=== PATIENT | female | born 1935 | race Caucasian/White ===

== ENCOUNTER 2016-08-02 19:46 | Emergency (ER) | payer OTHER ==
[~2016-08-02] VITALS: Ht 162.6 cm; Wt 77.8 kg
[~2016-08-02 19:46] MED LIST: ALBUAER2 INH; GLCSR/500 PO; LCHC12280 TOP; METO50TA16 PO; MOME1AER4 INH; PRVC/20 PO; RIVA1TAB4 PO; TRAM-10 PO
[2016-08-02 19:49] VITALS: Ht 162.6 cm; Wt 77.8 kg
[2016-08-02] MEDS ORDERED: VNTHFA/IN INH (20:55)
[2016-08-02] MEDS ORDERED: ASMIN/30 INH (20:55)
--- NOTE | 2016-08-02 21:20 | EMERGENCY ROOM VISIT NOTE ---
ED Visit Note First contact with patient: 21:20 I have personally seen and evaluated the patient with the physician assistant attorney general. I agree with the diagnostic/management decisions and have personally been involved in these decisions and agree with the diagnosis.
--- NOTE | 2016-08-02 21:22 | EMERGENCY ROOM VISIT NOTE ---
ED Visit Note First contact with patient: 20:10 CHIEF COMPLAINT: Itchy scalp rash 3 weeks HISTORY OF PRESENT ILLNESS: Patient is an 81-year-old white female who presents to the emergency department A by her son for evaluation of a scalp rash. She reports a red, itchy rash that has been present for about 3 weeks. It is progressively getting worse. She initially tried using a Head and Shoulders antidandruff shampoo which made it worse, she switched to Selsun Blue, which she seems to think helped. She is also tried applying Vaseline to the area. She states that it is very itchy but she is trying not to scratch it. She has never had symptoms similar to this previously. Denies new exposure to any potential allergens such as new medications, clothes, detergents, cosmetic products, or foods. She did not attempt to contact her PCP for evaluation for this despite the ongoing duration. REVIEW OF SYSTEMS: Review of systems as per HPI. All other systems reviewed were negative. At least 6 systems reviewed. PMH: Electronic medical records are reviewed and summarized as above/below. See Problem List. SOCIAL HISTORY: Patient lives at home by herself. She does not smoke.. PHYSICAL EXAM: Vital Signs: Reviewed Nurse's notes. CONSTITUTIONAL: Patient is a pleasant, well-appearing 81-year-old white female who is awake and alert and in no acute. HEENT: Normocephalic, atraumatic. Pupils equal, round, reactive to light and accommodation. EOMs intact without nystagmus. Sclera are anicteric. Tympanic membranes intact, with normal landmarks. External canals are clear. Oral and nasopharynx are clear. Mucous membranes are moist. LUNGS: Clear to auscultation HEART: Regular rate and rhythm. INTEGUMENTARY: Examination of the patient's scalp does not show any well demarcated rash or obvious lesions. She has a very faint slightly raised erythematous maculopapular region at the temples bilaterally, and a few other lesions noted in the occipital area. There is no crusting, flaking, drainage or discharge. No excoriations. No hair breakage. No evidence for head lice. EMERGENCY DEPARTMENT COURSE: The patient was seen and evaluated as above. She presents the emergency department for evaluation of a rash which fairly difficult to identify. She has a few, minimally raised and slightly erythematous areas, but they do not appear consistent with a tibial infection. Certainly no evidence for head lice, does not appear consistent with urticaria. It was not felt that any prednisone was warranted. For her itching she was encouraged to use Benadryl. She should not apply any other topical agents to the area, and was encouraged to follow-up with her doctor, or with dermatology. Problem List Medical Problems: (1) Asthma Status: Chronic (2) Asthma, Unspecified Status: Chronic (3) Atrial fibrillation Status: Chronic (4) Contusion of left upper extremity Status: Resolved (5) Contusion of rib on right side Status: Resolved (6) Diabetes mellitus Status: Chronic (7) Fall from slip, trip, or stumble Status: Resolved (8) HTN (hypertension) Status: Chronic (9) Hyperlipidemia Nec/Nos Status: Chronic (10) Left shoulder strain Status: Resolved (11) Lumbar back pain Status: Resolved (12) New onset atrial flutter Status: Resolved (13) New onset atrial flutter Status: Resolved (14) Skin tear of left hand without complication Status: Resolved (15) Vaginal bleeding Status: Resolved Current/Historical Medications Scheduled Lactic Acid (Ammonium Lactate Cream 12%), 1 APPLN TOP BID Metformin HCl (Metformin HCl ER), 500 MG PO DAILY Metoprolol Tartrate (Lopressor) (Lopressor), 50 MG PO BID Mometasone Furoate (Asmanex Twisthaler 30 Me), 1 PUFF INH QPM Pravastatin Sod (Pravastatin Sodium), 20 MG PO HS Rivaroxaban (Xarelto), 20 MG PO DAILY Scheduled PRN Albuterol Hfa (Ventolin Hfa), 2 PUFF INH QID PRN for SOB/Wheezing Tramadol (Ultram), 50-100 MG PO Q4H PRN for Pain Allergies Coded Allergies: Simvastatin (Verified Adverse Reaction, Intermediate, DIZZINESS, 03/14/15) Vital Signs Date Time Temp Pulse Resp B/P Pulse Ox O2 Delivery O2 Flow Rate FiO2 08/02/16 21:35 36.5 67 20 174/104 97 08/02/16 19:49 36.5 90 20 204/91 95 Room Air Departure Information Impression Primary Impression: Pruritic dermatitis Referrals Ariadna Garcia, C.R.N.P. (PCP) Song Quintero MD [facility] Patient Instructions [facility] Additional Instructions Diphenhydramine(Benadryl) 25mg: use 25 to 50 mg as needed every six hours for swelling, itching, or hives. This medication is sedating and will cause drowsiness. Avoid alcohol, operating machinery or dangerous equipment, working on ladders or roofs, DRIVING, or situations where being under the influence may be dangerous. Read all the package inserts or medication information paperwork provided. If you have any questions or concerns call your primary provider, pharmacist or the ER for assistance. Continue current medications. Continue your anti-dandruff shampoo. Follow-up with your primary care physician in 2-3 days for a recheck of your current condition. Follow-up with dermatology as instructed this week to schedule a visit and further investigation.
[2016-08-02 21:35] VITALS: BP 174/104; PULSE 67; TEMP 36.5; O2SAT 97
[2016-09-22] MEDS ORDERED: CLC100 PO (09:17)
[2016-09-22] MEDS ORDERED: FRRS300 PO (09:17)
[2016-09-22] MEDS ORDERED: MRLP17 PO (09:17)
== END 2016-08-02 21:36 | disposition home or self-care (01) ==
LOC: C.EDB 19:47 → C.EDD 21:36
DX: L30.8 Other specified dermatitis (principal); J45.909 Unspecified asthma, uncomplicated; E78.5 Hyperlipidemia, unspecified; I48.2 Chronic atrial fibrillation; I10 Essential (primary) hypertension; E11.9 Type 2 diabetes mellitus without complications; Z79.84 Long term (current) use of oral hypoglycemic drugs

== ENCOUNTER 2016-09-13 07:49 | Emergency (ER) | payer OTHER ==
[~2016-09-13 07:49] MED LIST changes: -ALBUAER2 INH; +ASMIN/30 INH; -MOME1AER4 INH; +VNTHFA/IN INH
[2016-09-13 07:58] VITALS: TEMP 36.5
[2016-09-13] MEDS ORDERED: LISI-729 PO (08:07)
[2016-09-13] MEDS ORDERED: SODIUM CHLORIDE 0.9% 1000ML 1,000 ML IV STA (08:10)
[2016-09-13 08:24] LABS: BASO % 0.5 %; BASO ABS # 0.02 K/uL (0-0.2); COMPLETE YES; EOS % 5.5 %; HEMATOCRIT 44.8 % (37-47); IG% 0.2 %; LYMPH % 29.6 %; LYMPH ABS # 1.23 K/uL (1.2-3.4); MEAN CELL VOLUME 89.6 fL (80-100); MEAN CORPUSCULAR HEMOGLOBIN 29.8 pg (25-34); MEAN CORPUSCULAR HGB CONC 33.3 g/dl (32-36); MEAN PLATELET VOLUME 9.5 fL (7.4-10.4); MONO % 11.3 %; NEUT % 52.9 %; PLATELET COUNT 170 K/uL (130-400); WHITE BLOOD COUNT 4.15 K/uL (4.8-10.8)
[2016-09-13 08:34] LABS: INR 1.5 (0.9-1.1); PARTIAL THROMBOPLASTIN RATIO 1.4; PROTHROMBIN TIME (PATIENT) 16.1 SECONDS (9.0-12.0)
[2016-09-13 08:38] LABS: BLOOD UREA NITROGEN 13 mg/dl (7-18); GLUCOSE 192 mg/dl (70-99)
[2016-09-13 08:39] LABS: ALT/SGPT 42 U/L (12-78); CALCIUM 9.1 mg/dl (8.5-10.1); CARBON DIOXIDE 27 mmol/L (21-32); CHLORIDE 106 mmol/L (98-107); POTASSIUM 3.8 mmol/L (3.5-5.1); SODIUM 142 mmol/L (136-145)
--- NOTE | 2016-09-13 08:40 | DIAGNOSTIC IMAGING REPORT ---
SINGLE VIEW CHEST CLINICAL HISTORY: Atypical chest pain. FINDINGS: An AP, portable, upright chest radiograph is compared to study dated 03/14/2015. The examination is degraded by portable technique and patient rotation. The heart is enlarged and there is atherosclerotic calcification of the thoracic aorta. The pulmonary vasculature is noncongested. The lungs and pleural spaces are clear. No pneumothorax is seen. The skeletal structures are osteopenic. The bony thorax is grossly intact. Degenerative change is noted in the thoracic spine. IMPRESSION: Cardiomegaly with no acute cardiopulmonary abnormality. Electronically signed by: Cheng Sheridan M.D. 09/13/2016 8:39 AM Dictated Date/Time: 09/13/2016 8:38 AM
[2016-09-13 08:42] LABS: ALKALINE PHOSPHATASE 74 U/L (45-117); AST/SGOT 30 U/L (15-37); CKMB/CK RATIO 4.3 (0-3.0)
--- NOTE | 2016-09-13 08:59 | EMERGENCY ROOM VISIT NOTE ---
ED Visit Note First contact with patient: 07:53 Patient was seen by our PA/TALENT SCOUT. I was involved in the patient's care and did evaluate the patient myself. I was involved in the care throughout the ER stay. The patient presents with a higher blood pressure, she is really without other complaints. She has a nonfocal neurologic exam. Her blood pressure has started to come down on its own without any medication intervention. She has been having some adjustments made to her blood pressure medications recently. We are going to attempt to contact her doctor's office about how to move forward. We will not be making any changes unless approved by the family physician.
--- NOTE | 2016-09-13 11:07 | DIAGNOSTIC IMAGING REPORT ---
LEFT ELBOW MIN 3 VIEWS ROUTINE CLINICAL HISTORY: Left elbow pain status post trauma COMPARISON: None. DISCUSSION: The fat pads are not displaced. No acute fractures are visualized. There is triceps insertional calcification. IMPRESSION: 1. No acute fractures or dislocations 2. Triceps insertional olecranon calcification Electronically signed by: Matt Gonzalez M.D. 09/13/2016 11:06 AM Dictated Date/Time: 09/13/2016 11:05 AM
--- NOTE | 2016-09-13 11:08 | DIAGNOSTIC IMAGING REPORT ---
RIGHT FOOT MIN 3 VIEWS ROUTINE CLINICAL HISTORY: Right foot pain status post trauma COMPARISON: None. DISCUSSION: No acute fractures are visualized. There is prominent calcaneal spurring. There are osteoarthritic changes at the level the first metatarsal phalangeal joint. IMPRESSION: No acute fractures identified. Electronically signed by: Matt Gonzalez M.D. 09/13/2016 11:07 AM Dictated Date/Time: 09/13/2016 11:06 AM
--- NOTE | 2016-09-13 11:11 | DIAGNOSTIC IMAGING REPORT ---
SINGLE VIEW PELVIS CLINICAL HISTORY: Fall with right pelvic pain. FINDINGS: An AP pelvic radiograph is correlated with pelvic CT dated 01/17/2014. The skeletal structures are osteopenic. There is no radiographic evidence of acute fracture involving the hips or bony pelvis. Mild arthritic change is seen in the hips. Sclerotic change is noted in the sacroiliac joints and pubic symphysis. Lumbosacral spondylosis is partially imaged. The overlying soft tissues are within normal limits. There is a nonobstructed abdominal bowel gas pattern. IMPRESSION: Osteopenia and degenerative changes above. No fracture is seen in the hips or bony pelvis. Electronically signed by: Cheng Sheridan M.D. 09/13/2016 11:09 AM Dictated Date/Time: 09/13/2016 11:08 AM
--- NOTE | 2016-09-13 11:11 | DIAGNOSTIC IMAGING REPORT ---
RIGHT ELBOW MIN 3 VIEWS ROUTINE CLINICAL HISTORY: RT ELBOW PAIN Right trauma. Pain. COMPARISON: None. DISCUSSION: Soft tissue disruption medial and posterior to the elbow. Small ossific fragment adjacent to the proximal ulna possibly representing an old avulsion. It appears to be relatively well corticated. Components of mild lateral calcific epicondylitis. IMPRESSION: Considerable soft tissue disruption as described. Small ossific fragment immediately adjacent to the proximal ulna most likely old. Electronically signed by: Abdirizak Dixon M.D. 09/13/2016 11:10 AM Dictated Date/Time: 09/13/2016 11:07 AM
[2016-09-13 11:42] VITALS: BP 177/102; PULSE 71; O2SAT 98
--- NOTE | 2016-09-13 16:07 | EMERGENCY ROOM VISIT NOTE ---
ED Visit Note First contact with patient: 07:53 Chief Complaint: Lightheadedness and high blood pressure. History of Present Illness: Ms. Miller is an 81-year-old white female who is brought into the ED via ambulance with complaints of high blood pressure and lightheadedness. Patient reports on her last follow-up visit with her PCP her blood pressure medication which changed because she was having lightheadedness. I did review her medical records from this visit on September 06 and it showed that they decreased her lisinopril from 5 mg 2.5 mg. Patient reports the lightheadedness has been ongoing for months prior to this visit. Patient reports the lightheadedness has continued since this visit and she has noted at home that her blood pressure has been increasing over the last few days. This caused her concern so 911 was activated and she was brought into the ED. Currently she has no other complaints except those noted above. She denies any physical complaints including head trauma, headache, dizziness, visual changes, hearing changes, difficulty speaking, difficulty swallowing, difficulty ambulating/coordinating body movements, neck pain, chest pain, palpitations, shortness of breath, cough, upper respiratory tract symptoms, abdominal pain, nausea, vomiting, decreased appetite, weight loss, extremity weakness/numbness/ tingling. LATE NOTE: On discharge patient was walking into the waiting room of the hospital and did not have her shoes correctly placed, lost her balance and fell to the floor. She was brought back into the ED and reevaluated. On my evaluation patient was complaining of bilateral elbow pain, right hip and posterior pelvis pain and right foot pain. Rest patient described the pain in these areas she says it feels "bruised", but these areas do not hurt. Her discomfort worsens with palpation. She has not identified any alleviating factors related to the pain and she did not have any medication for pain prior to arrival back in the ED. She denies striking her head at the time of the fall or having a loss of consciousness, she was not having any dizziness or lightheadedness before the fall and she denies all abnormal neurological symptoms, cervical back pain, thoracic back pain, chest pain, shortness of breath, abdominal pain, nausea/vomiting. Review of Systems: As noted above in history of present illness. All body systems were reviewed and found to be negative as noted above. Past Medical History: (1) Asthma (2) Asthma, Unspecified (3) Atrial fibrillation (4) Contusion of left upper extremity (5) Contusion of rib on right side (6) Diabetes mellitus (7) Fall from slip, trip, or stumble (8) HTN (hypertension) (9) Hyperlipidemia Nec/Nos (10) Left shoulder strain (11) Lumbar back pain (12) New onset atrial flutter (13) New onset atrial flutter (14) Skin tear of left hand without complication (15) Vaginal bleeding Current Medications: Medications Dose Route/Sig Max Daily Dose Days Date Category Zestril (Lisinopril) 5 Mg Tab 2.5 Mg PO DAILY 09/13/16 Reported Asmanex Twisthaler 30 Me (Mometasone Furoate) 30 Puff/Inhaler Aerp 1 Puff INH QPM 08/02/16 Reported Ventolin Hfa (Albuterol) 200 Puffs/06842 Mcg Aers 2 Puff INH QID PRN 08/02/16 Reported Xarelto (Rivaroxaban) 20 Mg Tab 20 Mg PO DAILY 04/29/15 Reported Metformin HCl ER (Metformin HCl) 500 Mg Tabcr 500 Mg PO DAILY 04/29/15 Reported Lopressor (Metoprolol Tartrate) 50 Mg Tab 50 Mg PO BID 04/24/14 Reported Allergies to Medications: Simvastatin. Social History: Patient is not currently employed; she feels safe in her home environment; she denies tobacco and alcohol use. Physical Examination: Vital Signs: GENERAL: 81-year-old female in no acute distress, nontoxic-appearing, afebrile and hemodynamically stable. NEUROLOGICAL: Awake, alert and oriented to person, place and time. Answering questions appropriately and following commands. Good hand eye coordination. No focal motor or sensory deficits. Pronator drift test negative. Cranial nerves II through XII grossly intact. SKIN: Warm, dry and pink. No soft tissue eruptions or trauma noted. HEENT: Atraumatic and normocephalic. PERRLA. EOMI without nystagmus. Sclera white and conjunctiva pink. No drainage from naris. Oral cavity moist and pink. Pharynx is nonerythematous or edematous. No carotid bruits. Speech normal. No lymphadenopathy. Trachea midline. No jugular venous distention. BACK: No tenderness over the bony spine. No CVA tenderness. THORAX: Lungs sounds are clear to auscultation and equal bilaterally with symmetrical chest wall. No wheezing, rales or rhonchi. No crepitus, tenderness , subcutaneous air or deformities noted. HEART: Regular rate and rhythm. No gallops, rubs or murmurs are appreciated. PMI is not displaced. No lifts, heaves or thrills. ABDOMEN: Flat, soft and nontender. Positive bowel sounds in all quadrants. No guarding, rigidity or organomegaly. EXTREMITIES: Moves all extremities well on command and with purpose. All distal neurovascular statuses are intact and equal bilaterally. Mild dependent edema over the right lower extremity; medical records were reviewed and this has been noted before. No calf tenderness or cords. LATE: GENERAL: 81-year-old female in no acute distress. NEUROLOGICAL: Awake, alert and oriented to person, place and time. Answering questions appropriately and following commands. Good hand eye coordination. No focal motor sensory deficits. SKIN: Warm, dry and pink. Right Foot: Patient has a small superficial laceration to the third finger just lateral to the toenail. Minimal bleeding. HEENT: Atraumatic and normocephalic. Skull: No bony deformity/depressions, nontender. No raccoon's eyes or wong signs. No drainage in the ears or the nostril; no hemotympanum. Face: No bony tenderness, swelling or ecchymosis. PERRLA. EOMI without nystagmus. Sclera white and conjunctiva pink. No malocclusion. No actual trauma. Airway patent. Speech normal. Trachea midline. No jugular venous distention. BACK: No tenderness over the bony cervical, thoracic and lumbar spine. Full range of motion of the cervical spine. No CVA tenderness. THORAX: Lungs sounds are clear to auscultation and equal bilaterally with symmetrical chest wall. No crepitus, tenderness, subcutaneous air or deformities noted. HEART: Regular rate and rhythm. No gallops, rubs or murmurs are appreciated. ABDOMEN: Flat, soft and nontender. Positive bowel sounds in all quadrants. No guarding, rigidity or organomegaly. PELVIS: Stable and nontender to compression and rock. Mild tenderness over the posterior ilium area just superior and medial of the hip. No palpable bony deformity or crepitus. No swelling or ecchymosis. UPPER EXTREMITY: No tenderness over the shoulders, forearms, wrists or hands. Mild tenderness over the bilateral occipital area slightly more pronounced on the right than the left. There is some skin redness but no open wounds or skin tears. No tenderness over the distal humerus, olecranon process, epicondyles or proximal radius/forearm. She does have full range of motion in flexion and extension of the elbows and forearms bilaterally. Distal pulses are intact and equal bilaterally. LOWER EXTREMITIES: No shortening or malrotation. Mild tenderness over the right foot over the third metatarsal and third toe. Small laceration as noted above. No bruising or ecchymosis. Able to wiggle her toes without difficulty. Capillary refill is brisk. She was able to distinguish light sensations through all toes of the right foot. . ED Course: Patient is assessed as noted above. Test 09/13/16 07:57 09/13/16 07:58 09/13/16 08:16 Range/Units Bedside Glucose 166 70-90 mg/dl White Blood Count 4.15 4.8-10.8 K/uL Red Blood Count 5.00 4.2-5.4 M/uL Hemoglobin 14.9 12.0-16.0 g/dL Hematocrit 44.8 37-47 % Mean Corpuscular Volume 89.6 80-100 fL Mean Corpuscular Hemoglobin 29.8 25-34 pg Mean Corpuscular Hemoglobin Concent 33.3 32-36 g/dl Platelet Count 170 130-400 K/uL Mean Platelet Volume 9.5 7.4-10.4 fL Neutrophils (%) (Auto) 52.9 % Lymphocytes (%) (Auto) 29.6 % Monocytes (%) (Auto) 11.3 % Eosinophils (%) (Auto) 5.5 % Basophils (%) (Auto) 0.5 % Neutrophils # (Auto) 2.19 1.4-6.5 K/uL Lymphocytes # (Auto) 1.23 1.2-3.4 K/uL Monocytes # (Auto) 0.47 0.11-0.59 K/uL Eosinophils # (Auto) 0.23 0-0.5 K/uL Basophils # (Auto) 0.02 0-0.2 K/uL RDW Standard Deviation 46.0 36.4-46.3 fL RDW Coefficient of Variation 14.1 11.5-14.5 % Immature Granulocyte % (Auto) 0.2 % Immature Granulocyte # (Auto) 0.01 0.00-0.02 K/uL Prothrombin Time 16.1 9.0-12.0 SECONDS Prothromb Time International Ratio 1.5 0.9-1.1 Activated Partial Thromboplast Time 36.9 21.0-31.0 SECONDS Partial Thromboplastin Ratio 1.4 Sodium Level 142 136-145 mmol/L Potassium Level 3.8 3.5-5.1 mmol/L Chloride Level 106 98-107 mmol/L Carbon Dioxide Level 27 21-32 mmol/L Anion Gap 9.0 3-11 mmol/L Blood Urea Nitrogen 13 7-18 mg/dl Creatinine 0.60 0.60-1.20 mg/dl Estimated GFR () 99.1 Estimated GFR (Non- 85.5 BUN/Creatinine Ratio 22.0 10-20 Random Glucose 192 70-99 mg/dl Calcium Level 9.1 8.5-10.1 mg/dl Magnesium Level 2.0 1.8-2.4 mg/dl Total Bilirubin 0.5 0.2-1 mg/dl Direct Bilirubin 0.1 0-0.2 mg/dl Aspartate Amino Transf (AST/SGOT) 30 15-37 U/L Alanine Aminotransferase (ALT/SGPT) 42 12-78 U/L Alkaline Phosphatase 74 45-117 U/L Total Creatine Kinase 47 26-192 U/L Creatine Kinase MB 2.0 0.5-3.6 ng/ml Creatine Kinase MB Ratio 4.3 0-3.0 Total Protein 6.2 6.4-8.2 gm/dl Albumin 3.4 3.4-5.0 gm/dl Lipase 77 73-393 U/L Bedside Troponin I 0.000 0-0.045 ng/ml EKG: Was read by myself and reviewed with Dr. Almeida; shows atrophic flutter with varying AV block at a ventricular rate of [address] changes indicating ischemia, injury or infarction. I did review patient's medical records and seeing that she has been in atrial fibrillation in the past, atrial flutter in the past and her last EKG was sinus bradycardia with first-degree AV block. Chest X-Rays: Were read by myself and the radiologist and shows mild cardiomegaly but no acute infiltrates, effusions or pneumothorax. Normal heart silhouette and bony anatomy. No venous congestion. Chest x-ray was compared to previous and no acute changes were noted. Patient was reassessed multiple times during her stay in the emergency department. Patient's case was reviewed with Dr. Almeida; we agreed on diagnostic approach, treatment, disposition and plan. Patient's case was consulted with her PCP, Dr. Lizzie Alejo; she recommended that she increase her lisinopril to 5 mg a day and office follow-up. Patient was educated about today's findings and instructed on her treatment plan ; she verbalizes understanding and agreement with this plan. LATE: Pelvis X-Ray: Was read by myself and the radiologist showing osteopenia and degenerative changes but no acute fractures of the pelvis or hips. Right Foot X-Rays: Was read by myself and the radiologist showing no acute fractures or dislocations. Osteoarthritic changes noted. Left Elbow X-Rays: Were read by myself and the radiologist showing no acute fractures or dislocations. No displacement of the fat pads. Radiologist does note triceps insertion calcification. Right Elbow X-Rays: Were read by myself and the radiologist showing no acute fractures or dislocations. Radiologist does note a small ossified fragment adjacent to the proximal ulna representing an old avulsion fracture and components of mild lateral calcification epicondylitis. Patient was offered pain medications and refused. Orthostatic vital signs were performed and were negative. Patient was reeducated about tonight's findings and instructed on her treatment plan; she verbalized understanding and agreement with this plan. Clinical Impression: Hypertension. Lightheadedness. Fall. Disposition: Patient discharged home in stable condition; prior to departure she was reassessed and subjectively reported that she was feeling pain-free. Plan: Patient was encouraged to increase her lisinopril to 5 mg once a day. Patient was encouraged to continue her other medications as prescribed. Patient was encouraged use 650 mg of acetaminophen every 6 hours as needed for pain. Patient was encouraged use ice over areas of pain from her fall. Patient was encouraged to follow-up with PCP for recheck of her blood pressure and now fall. Patient was encouraged return the ED for worsening lightheadedness, worsening high blood pressure, any abnormal neurological symptoms that we discussed, chest pain or any new/concerning symptoms.
[2016-09-22] MEDS ORDERED: CLC100 PO (09:17)
[2016-09-22] MEDS ORDERED: MRLP17 PO (09:17)
[2016-09-22] MEDS ORDERED: FRRS300 PO (09:17)
== END 2016-09-13 10:08 | disposition home or self-care (01) ==
LOC: EDBD 07:49 → C.EDA 07:50
DX: I10 Essential (primary) hypertension (principal); R42 Dizziness and giddiness; M85.88 Other specified disorders of bone density and structure, other site; W01.0XXA Fall on same level from slipping, tripping and stumbling without subsequent striking against object, initial encounter; S91.114A Laceration without foreign body of right lesser toe(s) without damage to nail, initial encounter; Y92.238 Other place in hospital as the place of occurrence of the external cause; M19.071 Primary osteoarthritis, right ankle and foot; J45.909 Unspecified asthma, uncomplicated; I48.91 Unspecified atrial fibrillation; E78.5 Hyperlipidemia, unspecified; M54.5 Low back pain

== ENCOUNTER → 2016-09-16 | Outpatient (CLI) | payer OTHER ==
[~2016-09-16] MED LIST changes: +CLC100 PO; +FRRS300 PO; -LCHC12280 TOP; +LISI-729 PO; +MRLP17 PO; -PRVC/20 PO; -TRAM-10 PO
[2016-09-16 13:11] LABS: ALT/SGPT 29 U/L (12-78); AST/SGOT 19 U/L (15-37); BLOOD UREA NITROGEN 19 mg/dl (7-18); BUN/CREATININE RATIO 30.8 (10-20); CALCIUM 8.8 mg/dl (8.5-10.1); CARBON DIOXIDE 29 mmol/L (21-32); CHLORIDE 106 mmol/L (98-107); CREATININE 0.63 mg/dl (0.60-1.20); GLUCOSE 146 mg/dl (70-99); POTASSIUM 3.7 mmol/L (3.5-5.1); SODIUM 143 mmol/L (136-145)
[2016-09-16 13:13] LABS: ALB/GLOB RATIO 1.3 (0.9-2); ALKALINE PHOSPHATASE 68 U/L (45-117); CHOLESTEROL 130 mg/dl (0-200); CHOLESTEROL/HDL RATIO 2.3; HDL CHOLESTEROL 57 mg/dl; LDL CHOLESTEROL CALCULATED 53 mg/dl; TRIGLYCERIDES 99 mg/dl (0-150); VERY LOW DENSITY LIPOPROT CALC 20 mg/dl
[2016-09-16 13:48] LABS: ESTIMATED AVERAGE GLUCOSE 163 mg/dl; HA1C FLAG Normal (Normal)
== END | disposition home or self-care (01) ==
LOC: C.LABBFT 07:33
PROVIDERS: ATTEND Nurse Practitioner
DX: E11.9 Type 2 diabetes mellitus without complications (principal); E78.00 Pure hypercholesterolemia, unspecified

== ENCOUNTER 2016-09-20 19:22 | Inpatient (IN) | payer OTHER ==
[~2016-09-20] VITALS: Ht 162.6 cm; Wt 79.0 kg
[~2016-09-20 19:22] MED LIST changes: -CLC100 PO; -FRRS300 PO; -MRLP17 PO
[2016-09-20 20:37] LABS: BASO % 0.2 %; BASO ABS # 0.02 K/uL (0-0.2); COMPLETE YES; HEMATOCRIT 39.8 % (37-47); IG% 0.3 %; LYMPH % 19.1 %; LYMPH ABS # 1.64 K/uL (1.2-3.4); MEAN CELL VOLUME 91.3 fL (80-100); MEAN CORPUSCULAR HEMOGLOBIN 29.6 pg (25-34); MEAN CORPUSCULAR HGB CONC 32.4 g/dl (32-36); MEAN PLATELET VOLUME 9.5 fL (7.4-10.4); MONO % 8.9 %; NEUT % 69.5 %; PLATELET COUNT 194 K/uL (130-400); RED BLOOD COUNT 4.36 M/uL (4.2-5.4); WHITE BLOOD COUNT 8.58 K/uL (4.8-10.8)
[2016-09-20 20:49] LABS: INR 1.1 (0.9-1.1); PROTHROMBIN TIME (PATIENT) 11.9 SECONDS (9.0-12.0)
--- NOTE | 2016-09-20 20:53 | DIAGNOSTIC IMAGING REPORT ---
LEFT HIP UNILATERAL 2 VIEWS CLINICAL HISTORY: Left hip pain s/p fall trauma. Pain. COMPARISON: None. DISCUSSION: Mild degenerative change. No acute bony abnormality. No evidence for acetabular protrusion. There is no evidence for soft tissue swelling. IMPRESSION: Negative study. Electronically signed by: Abdirizak Dixon M.D. 09/20/2016 8:52 PM Dictated Date/Time: 09/20/2016 8:52 PM
--- NOTE | 2016-09-20 20:53 | DIAGNOSTIC IMAGING REPORT ---
RIGHT FEMUR 2 VIEWS ROUTINE CLINICAL HISTORY: Right leg hematoma, on Xarelto. Fell Right COMPARISON: None. DISCUSSION: Degenerative change right hip and right knee. No acute bony abnormality. There is no evidence for soft tissue swelling. IMPRESSION: Degenerative change. No acute bony abnormality. Electronically signed by: Abdirizak Dixon M.D. 09/20/2016 8:51 PM Dictated Date/Time: 09/20/2016 8:51 PM
[2016-09-20 21:15] LABS: BUN/CREATININE RATIO 29.3 (10-20); CALCIUM 9.3 mg/dl (8.5-10.1); CREATININE 0.71 mg/dl (0.60-1.20); POTASSIUM 4.2 mmol/L (3.5-5.1)
--- NOTE | 2016-09-20 22:16 | DIAGNOSTIC IMAGING REPORT ---
Ultrasound right thigh RIGHT EXTREMITY NONVASCULAR LIMITED CLINICAL HISTORY: Right thigh hematoma Right pain. Edema. TECHNIQUE: Ultrasound COMPARISON STUDY: None FINDINGS: Somewhat peripherally configured hematoma seen peripherally about the right thigh and extends posterior/laterally to the level of the knee. Maximum thicknesses proximally 6 cm. IMPRESSION: Hematoma surrounding the right thigh, and extending inferiorly to the level of the knee. Has a maximum thickness is 6 cm. Electronically signed by: Abdirizak Dixon M.D. 09/20/2016 10:15 PM Dictated Date/Time: 09/20/2016 10:12 PM
[2016-09-21] MEDS ORDERED: ACETAMINOPHEN 325 MG TAB PO STA (00:25)
--- NOTE | 2016-09-21 03:12 | EMERGENCY ROOM VISIT NOTE ---
ED Visit Note First contact with patient: 19:38 I have personally evaluated this patient examined her and reviewed the pertinent labs and data. I have discussed the case with Alexy Barnett, the physician nursing home assistant and agree with the plan. Please refer to the PA note This patient comes in with a large hematoma in her right lateral thigh she fell about a week ago. She is on Xarelto. It's gotten more swollen over the last day. On exam, she has no evidence compartment syndrome. She has normal motor sensation of the feet and has no pain she is distal pulses. Ultrasound does show large hematoma and hemoglobin has dropped about 2 g and a week . I do think she needs to be admitted for observation and treatment her last doses were also was in the morning. We did consult Dr. Murcia to see her.
--- NOTE | 2016-09-21 03:38 | EMERGENCY ROOM VISIT NOTE ---
History First contact with patient: 19:38 Chief Complaint: HIP PAIN Stated Complaint: PRIOR FALL IN THE ER IS HURTING AND SWELLING History of Present Illness The patient is a 81 year old female who presents to the Emergency Room via private vehicle accompanied by daughter with complaints of "prior fall in the ER is hurting and swelling". The patient states that she was here on September 13, and while exiting the emergency department she fell in the lobby. She states that she did have imaging at that time and was doing well until this evening when she was sitting down and developed a sharp pain in the right lateral thigh and noticed severe swelling and bruising. She states that there is pain with walking and she is on Xarelto. She denies any head injury, chest pain, shortness of breath. Review of Systems A complete 10-point Review of Systems was discussed with the patient, with pertinent positives and negatives listed in the History of Present Illness. All remaining Review of Systems questions can be considered negative unless otherwise specified. Past Medical/Surgical History Medical Problems: (1) Asthma (2) Asthma, Unspecified (3) Atrial fibrillation (4) Contusion of left upper extremity (5) Contusion of rib on right side (6) Diabetes mellitus (7) Fall from slip, trip, or stumble (8) HTN (hypertension) (9) Hyperlipidemia Nec/Nos (10) Left shoulder strain (11) Lumbar back pain (12) New onset atrial flutter (13) New onset atrial flutter (14) Skin tear of left hand without complication (15) Vaginal bleeding Family History FH: cancer Social History Smoking Status: Never Smoker Alcohol Use: none Housing Status: lives with family Occupation Status: retired Current/Historical Medications Scheduled Lisinopril (Zestril), 2.5 MG PO DAILY Metformin HCl (Metformin HCl ER), 500 MG PO DAILY Metoprolol Tartrate (Lopressor) (Lopressor), 50 MG PO BID Mometasone Furoate (Asmanex Twisthaler 30 Me), 1 PUFF INH QPM Rivaroxaban (Xarelto), 20 MG PO DAILY Scheduled PRN Albuterol Hfa (Ventolin Hfa), 2 PUFF INH QID PRN for SOB/Wheezing Allergies Coded Allergies: Simvastatin (Verified Adverse Reaction, Intermediate, DIZZINESS, 09/20/16) Physical Exam Vital Signs Date Time Temp Pulse Resp B/P Pulse Ox O2 Delivery O2 Flow Rate FiO2 09/21/16 02:43 93 18 124/76 98 Room Air 09/21/16 01:07 80 18 154/79 98 Room Air 09/20/16 22:24 74 16 154/74 97 09/20/16 19:32 37.3 64 18 132/75 96 Room Air Physical Exam VITAL SIGNS - Vital signs and nursing notes were reviewed. Patient is afebrile , normotensive, non-tachycardic and is saturating well on room air 96%. GENERAL -81-year-old female appearing her stated age who is in no acute distress. Communicates well with provider and answers questions appropriately. SKIN - Without rashes. There is large, diffuse ecchymosis that is black in color overlying the right lateral thigh from the region of the right greater trochanter to the right knee. This region is tender to palpation, and is rigid to the touch. HEAD - NC/AT. EYES - Sclera anicteric. Palpebral conjunctiva pink and moist with no injection noted. NECK - Neck with FROM. No C-spine tenderness. LUNGS - Chest wall symmetric without accessory muscle use, intercostals retractions, or central cyanosis. Normal vesicular breath sounds CTA B/L. No wheezes, rales, or rhonchi appreciated. CARDIAC - RRR with S1/S2. No murmur, rubs, or gallops appreciated. ABDOMEN - Abdominal contour without pulsations or visible masses. BS normoactive all four quadrants. No tenderness, palpable masses, hepatosplenomegaly, or ascites noted. EXTREMITIES - No clubbing or peripheral cyanosis. No pretibial edema present. Skin changes as noted above. There is no bony tenderness. No evidence of compartment syndrome. She is neurovascularly intact. Excellent pulses distally on the right lower extremity. +5/5 strength noted in UE/LE bilaterally. Medical Decision & Procedures ER Provider Diagnostic Interpretation: Ultrasound right thigh RIGHT EXTREMITY NONVASCULAR LIMITED CLINICAL HISTORY: Right thigh hematoma Right pain. Edema. TECHNIQUE: Ultrasound COMPARISON STUDY: None FINDINGS: Somewhat peripherally configured hematoma seen peripherally about the right thigh and extends posterior/laterally to the level of the knee. Maximum thicknesses proximally 6 cm. IMPRESSION: Hematoma surrounding the right thigh, and extending inferiorly to the level of the knee. Has a maximum thickness is 6 cm. Electronically signed by: Abdirizak Dixon M.D. 09/20/2016 10:15 PM Dictated Date/Time: 09/20/2016 10:12 PM RIGHT FEMUR 2 VIEWS ROUTINE CLINICAL HISTORY: Right leg hematoma, on Xarelto. Fell Right COMPARISON: None. DISCUSSION: Degenerative change right hip and right knee. No acute bony abnormality. There is no evidence for soft tissue swelling. IMPRESSION: Degenerative change. No acute bony abnormality. Electronically signed by: Abdirizak Dixon M.D. 09/20/2016 8:51 PM Dictated Date/Time: 09/20/2016 8:51 PM LEFT HIP UNILATERAL 2 VIEWS CLINICAL HISTORY: Left hip pain s/p fall trauma. Pain. COMPARISON: None. DISCUSSION: Mild degenerative change. No acute bony abnormality. No evidence for acetabular protrusion. There is no evidence for soft tissue swelling. IMPRESSION: Negative study. Electronically signed by: Abdirizak Dixon M.D. 09/20/2016 8:52 PM Dictated Date/Time: 09/20/2016 8:52 PM Laboratory Results 09/20/16 20:20 Red Blood Count 4.36, Mean Corpuscular Volume 91.3, Mean Corpuscular Hemoglobin 29.6, Mean Corpuscular Hemoglobin Concent 32.4, Mean Platelet Volume 9.5, Neutrophils (%) (Auto) 69.5, Lymphocytes (%) (Auto) 19.1, Monocytes (%) (Auto) 8.9, Eosinophils (%) (Auto) 2.0, Basophils (%) (Auto) 0.2, Neutrophils # (Auto) 5.96, Lymphocytes # (Auto) 1.64, Monocytes # (Auto) 0.76, Eosinophils # (Auto) 0.17, Basophils # (Auto) 0.02 09/20/16 20:20 Test 09/20/16 20:20 White Blood Count 8.58 K/uL (4.8-10.8) Red Blood Count 4.36 M/uL (4.2-5.4) Hemoglobin 12.9 g/dL (12.0-16.0) Hematocrit 39.8 % (37-47) Mean Corpuscular Volume 91.3 fL (80-100) Mean Corpuscular Hemoglobin 29.6 pg (25-34) Mean Corpuscular Hemoglobin Concent 32.4 g/dl (32-36) Platelet Count 194 K/uL (130-400) Mean Platelet Volume 9.5 fL (7.4-10.4) Neutrophils (%) (Auto) 69.5 % Lymphocytes (%) (Auto) 19.1 % Monocytes (%) (Auto) 8.9 % Eosinophils (%) (Auto) 2.0 % Basophils (%) (Auto) 0.2 % Neutrophils # (Auto) 5.96 K/uL (1.4-6.5) Lymphocytes # (Auto) 1.64 K/uL (1.2-3.4) Monocytes # (Auto) 0.76 K/uL (0.11-0.59) Eosinophils # (Auto) 0.17 K/uL (0-0.5) Basophils # (Auto) 0.02 K/uL (0-0.2) RDW Standard Deviation 47.1 fL (36.4-46.3) RDW Coefficient of Variation 14.0 % (11.5-14.5) Immature Granulocyte % (Auto) 0.3 % Immature Granulocyte # (Auto) 0.03 K/uL (0.00-0.02) Prothrombin Time 11.9 SECONDS (9.0-12.0) Prothromb Time International Ratio 1.1 (0.9-1.1) Activated Partial Thromboplast Time 26.1 SECONDS (21.0-31.0) Partial Thromboplastin Ratio 1.0 Anion Gap 8.0 mmol/L (3-11) Est Creatinine Clear Calc Drug Dose 63.2 ml/min Estimated GFR () 92.6 Estimated GFR (Non- 79.9 BUN/Creatinine Ratio 29.3 (10-20) Calcium Level 9.3 mg/dl (8.5-10.1) Medications Administered Medications (Trade) Dose Ordered Sig/Jesus Route Start Time Stop Time Status Last Admin Dose Admin Acetaminophen (Tylenol Tab) 650 mg NOW STAT PO 09/21/16 00:25 09/21/16 00:26 DC 09/21/16 01:05 650 MG Medical Decision Patient was seen and evaluated as above. After obtaining a thorough history and physical examination radiographs were obtained, and IV access was initiated. The above workup was performed. The patient presents with a large hematoma that appears to be of sudden onset. The concern is the patient is on anticoagulants, and the CBC reveals a hemoglobin drop of 2 points in one week. Although the hemoglobin is still within normal limits, was identified that the hematoma and pain did not develop until today even though she fell one week ago. CBC reveals no concerning leukocytosis or anemia that would require transfusion. PT and INR within normal limits. The electrolytes are within normal limits. BUN slightly elevated at 21, random glucose is 201. Calcium is within normal limits. Imaging results as above. Degenerative changes noted but without fracture on radiograph. Ultrasound reveals a large hematoma. I did discuss the case with my attending, who also personally evaluated the patient. We both believe that observation in the hospital is warranted given the sudden onset of this hematoma. I did discuss this with Dr. Abdalla, [facility] hospitalist. There was concern over the hematoma as to whether or not an extravasation could occur therefore I felt it pertinent to discuss the case with on-call general surgery. I spoke with Dr. Power at 12:47 AM, who indicated that their group maybe consult at to assist with the patient, and if that active extravasation would occur they are to be notified. I do believe this is reasonable and believe that hospital admission is appropriate. Dr. Abdalla agreed to admit the patient. The patient does appear to be receptive to this, and was given Tylenol for her pain. She was made comfortable throughout her stay, and seemed happy with plan of care. Please refer to further documentation regarding her stay. In the evaluation and treatment this patient the following differential diagnoses were entertained: Active extravasation, hematoma, hip fracture, occult femur fracture, supra therapeutic anticoagulation, among others. Impression Primary Impression: Hematoma of right thigh Departure Information Dispostion Admitted as an inpatient Condition FAIR Referrals Ariadna Garcia, C.R.N.P. (PCP) Patient Instructions My [facility] Problem Qualifiers Primary Impression: Hematoma of right thigh Encounter type: initial encounter Qualified Codes: S70.11XA - Contusion of right thigh, initial encounter
[2016-09-21] MEDS ORDERED: ALUMINUM/MAGNESIUM/SIMETH (MAALOX MAX) 30 ML UDC PO PRN (03:45)
[2016-09-21] MEDS ORDERED: ONDANSETRON INJ 2 MG/ML 2 ML VIAL IV PRN (03:45)
[2016-09-21] MEDS ORDERED: ALBUTEROL HFA 8 GM INHALER INH PRN (03:45)
[2016-09-21] MEDS ORDERED: POLYETHYLENE (MIRALAX) 17 GM PACK PO PRN (03:45)
[2016-09-21] MEDS ORDERED: MAGNESIUM HYDROXIDE SUSP 30 ML UDC PO PRN (03:45)
--- NOTE | 2016-09-21 03:52 | History and Physical ---
History & Physical Date & Time of Service: Sep 21, 2016 at 03:40 Chief Complaint: Prior Fall In The Er Is Hurting And Swelling Primary Care Physician: Ariadna Garcia C.R.NRodriPRodri History of Present Illness Source: patient 81 y/o F w/Hx chronic atrial flutter on Xarelto, asthma, HTN. Presented following a mechanical fall onto her R thigh. She noted an expanding hematoma and attended the ER. The pt denies any CP, SOB, palpitations or light headedness prior to her fall. She was observed in the ER for a few hours and it was noted that the hematoma was expanding and there was some concern as her hemoglobin was below normal. On imaging the hematoma is largely superficial. Past Medical/Surgical History Medical Problems: (1) Asthma Status: Chronic (2) Asthma, Unspecified Status: Chronic (3) Atrial fibrillation Status: Chronic (4) Contusion of left upper extremity Status: Resolved (5) Contusion of rib on right side Status: Resolved (6) Diabetes mellitus Status: Chronic (7) Fall from slip, trip, or stumble Status: Resolved (8) HTN (hypertension) Status: Chronic (9) Hyperlipidemia Nec/Nos Status: Chronic (10) Left shoulder strain Status: Resolved (11) Lumbar back pain Status: Resolved (12) New onset atrial flutter Status: Resolved (13) New onset atrial flutter Status: Resolved (14) Skin tear of left hand without complication Status: Resolved (15) Vaginal bleeding Status: Resolved Family History FH: cancer Social History Smoking Status: Never Smoker Housing status: lives with family Occupational Status: retired Immunizations History of Influenza Vaccine: N/A History of Tetanus Vaccine?: unknown History of Pneumococcal: unknow History of Hepatitis B Vaccine: unknown Multi-Drug Resistant Organisms History of MDRO: No Allergies Coded Allergies: Simvastatin (Verified Adverse Reaction, Intermediate, DIZZINESS, 09/20/16) Home Medications Scheduled Lisinopril (Zestril), 2.5 MG PO DAILY Metformin HCl (Metformin HCl ER), 500 MG PO DAILY Metoprolol Tartrate (Lopressor) (Lopressor), 50 MG PO BID Mometasone Furoate (Asmanex Twisthaler 30 Me), 1 PUFF INH QPM Rivaroxaban (Xarelto), 20 MG PO DAILY Scheduled PRN Albuterol Hfa (Ventolin Hfa), 2 PUFF INH QID PRN for SOB/Wheezing Review of Systems Constitutional: No chills, No fever, No sweats Eyes: No eye pain, No worsening of vision ENT: No hearing loss, No nasal symptoms, No unusual epistaxis Respiratory: No cough, No sputum, No wheezing Cardiovascular: No PND, No chest pain, No orthopnea Abdomen: No nausea, No pain, No vomiting Musculoskeletal: + joint pain, + muscle pain, + problem reported (Pain at R hip /thigh - chronic pain in legs due to OA) Genitourinary - Female: No dysuria, No urinary frequency, No urinary urgency Neurologic: No memory loss, No paralysis, No weakness Psychiatric: No anhedonism, No depression symptoms Endocrine: No fatigue Hematologic / Lymphatic: No abnormal bleeding/bruising Integumentary: + problem reported (Large hematoma on R thigh) Physical Exam Vital Signs Date Time Temp Pulse Resp B/P Pulse Ox O2 Delivery O2 Flow Rate FiO2 09/21/16 02:43 93 18 124/76 98 Room Air 09/21/16 01:07 80 18 154/79 98 Room Air 09/20/16 22:24 74 16 154/74 97 09/20/16 19:32 37.3 64 18 132/75 96 Room Air General Appearance: WD/WN, no apparent distress Head: normocephalic, atraumatic Eyes: normal inspection, PERRL, EOMI ENT: normal ENT inspection, pharynx normal Neck: supple, no JVD Respiratory/Chest: chest non-tender, lungs clear, normal breath sounds, no respiratory distress, no accessory muscle use Cardiovascular: no edema, no gallop, no JVD, no murmur, normal peripheral pulses, + irregularly irregular Abdomen/GI: normal bowel sounds, non tender, soft Back: normal inspection, no CVA tenderness, no muscle spasm, normal range of motion Extremities/Musculoskelatal: normal range of motion, + pertinent finding ( Large hematoma on R lat thigh) Neurologic/Psych: transition teacher II-XII nml as tested, no motor/sensory deficits, alert, normal mood/affect, normal reflexes, oriented x 3 Skin: warm/dry, no rash, + pertinent finding (Large hematome R thigh) Diagnostics Laboratory Results Results Past 24 Hours Test 09/20/16 20:20 Range/Units White Blood Count 8.58 4.8-10.8 K/uL Red Blood Count 4.36 4.2-5.4 M/uL Hemoglobin 12.9 12.0-16.0 g/dL Hematocrit 39.8 37-47 % Mean Corpuscular Volume 91.3 80-100 fL Mean Corpuscular Hemoglobin 29.6 25-34 pg Mean Corpuscular Hemoglobin Concent 32.4 32-36 g/dl Platelet Count 194 130-400 K/uL Mean Platelet Volume 9.5 7.4-10.4 fL Neutrophils (%) (Auto) 69.5 % Lymphocytes (%) (Auto) 19.1 % Monocytes (%) (Auto) 8.9 % Eosinophils (%) (Auto) 2.0 % Basophils (%) (Auto) 0.2 % Neutrophils # (Auto) 5.96 1.4-6.5 K/uL Lymphocytes # (Auto) 1.64 1.2-3.4 K/uL Monocytes # (Auto) 0.76 0.11-0.59 K/uL Eosinophils # (Auto) 0.17 0-0.5 K/uL Basophils # (Auto) 0.02 0-0.2 K/uL RDW Standard Deviation 47.1 36.4-46.3 fL RDW Coefficient of Variation 14.0 11.5-14.5 % Immature Granulocyte % (Auto) 0.3 % Immature Granulocyte # (Auto) 0.03 0.00-0.02 K/uL Prothrombin Time 11.9 9.0-12.0 SECONDS Prothromb Time International Ratio 1.1 0.9-1.1 Activated Partial Thromboplast Time 26.1 21.0-31.0 SECONDS Partial Thromboplastin Ratio 1.0 Sodium Level 143 136-145 mmol/L Potassium Level 4.2 3.5-5.1 mmol/L Chloride Level 106 98-107 mmol/L Carbon Dioxide Level 29 21-32 mmol/L Anion Gap 8.0 3-11 mmol/L Blood Urea Nitrogen 21 7-18 mg/dl Creatinine 0.71 0.60-1.20 mg/dl Est Creatinine Clear Calc Drug Dose 63.2 ml/min Estimated GFR () 92.6 Estimated GFR (Non- 79.9 BUN/Creatinine Ratio 29.3 10-20 Random Glucose 201 70-99 mg/dl Calcium Level 9.3 8.5-10.1 mg/dl Diagnostic Radiology US R extremity Hematoma surrounding the right thigh, and extending inferiorly to the level of the knee. Has a maximum thickness is 6 cm. EKG COnsistent w Aflutter Impression Assessment and Plan 81 y/o F w/Hx chronic atrial flutter on Xarelto, asthma, HTN. Presented following a mechanical fall onto her R thigh. She noted an expanding hematoma and attended the ER. The pt denies any CP, SOB, palpitations or light headedness prior to her fall. She was observed in the ER for a few hours and it was noted that the hematoma was expanding and there was some concern as her hemoglobin was below normal. On imaging the hematoma is largely superficial. 1) Hematoma post fall - Xarelto held, area outlined, serial Hb, surgery consult - consider reversal with significant Hb drop or further expansion 2) A flutter - rate controlled - cont Metoprolol - Xarelto held 3) Asthma - continue inhalers - no evidence of exacerbation 4) DM - cont Metformin Full code - prophylaxis held Total time for this admit including review of labs/imaging/ekg/records/meds - discussion with ER attending and pt - 30 min Level of Care Med/Surg Resuscitation Status FULL RESUSCITATION VTE Prophylaxis VTE Risk Assessment Done? Y/N: Yes Risk Level: Moderate Given or contraindicated: Contraindicated
[2016-09-21 05:23] VITALS: BP 132/80; PULSE 95; TEMP 36.8; O2SAT 95; Ht 162.6 cm; Wt 79.0 kg
[2016-09-21] MEDS: ACETAMINOPHEN 325 MG TAB PO PRN (06:11)
[2016-09-21 07:40] VITALS: BP 124/75; PULSE 95; TEMP 36.7; O2SAT 95
[2016-09-21] MEDS ORDERED: PNEUMOCOCCAL ADMINISTRATION CHARGE ONE (08:00)
[2016-09-21] MEDS ORDERED: PNEUMOCOCCAL POLYSACCHARIDES 25 MCG/0.5 ML VIAL/SYR IM. ONE (08:00)
[2016-09-21] MEDS: METOPROLOL TARTRATE 50 MG TAB PO SCH ×2 (09:00→21:21)
[2016-09-21] MEDS: LISINOPRIL 2.5 MG TAB PO SCH (09:11)
[2016-09-21] MEDS: METFORMIN HCL 500 MG TABCR PO SCH (09:11)
--- NOTE | 2016-09-21 10:45 | Surgery Consultation ---
Consultation Date of Consultation: Sep 21, 2016. Attending Physician: Edgar Cervantes MD History of Present Illness pt fell approx 1 week ago...she is on blood thinners..had ecchymosis but last night appeared to get worse with worsening of thigh bulge/bruise Past Medical/Surgical History Medical Problems: (1) Asthma Status: Chronic (2) Asthma, Unspecified Status: Chronic (3) Atrial fibrillation Status: Chronic (4) Diabetes mellitus Status: Chronic (5) Hematoma of right thigh Status: Acute (6) HTN (hypertension) Status: Chronic (7) Hyperlipidemia Nec/Nos Status: Chronic (8) Hypertension Status: Acute (9) Pruritic dermatitis Status: Acute Family History FH: cancer Social History Smoking Status: Unknown if Ever Smoked Housing Status: lives with family Occupation Status: retired Allergies Coded Allergies: Simvastatin (Verified Adverse Reaction, Intermediate, DIZZINESS, 09/20/16) Home Medications Scheduled Lisinopril (Zestril), 2.5 MG PO DAILY Metformin HCl (Metformin HCl ER), 500 MG PO DAILY Metoprolol Tartrate (Lopressor) (Lopressor), 50 MG PO BID Mometasone Furoate (Asmanex Twisthaler 30 Me), 1 PUFF INH QPM Rivaroxaban (Xarelto), 20 MG PO DAILY Scheduled PRN Albuterol Hfa (Ventolin Hfa), 2 PUFF INH QID PRN for SOB/Wheezing Current Inpatient Medications Current Inpatient Medications Medications (Trade) Dose Ordered Sig/Jesus Route Start Time Stop Time Status Last Admin Dose Admin Acetaminophen (Tylenol Tab) 650 mg Q4H PRN PO 09/21/16 03:45 10/21/16 03:44 09/21/16 06:11 650 MG Al Hydrox/Mg Hydrox/Simethicone (Maalox Max Susp) 15 ml Q4H PRN PO 09/21/16 03:45 10/21/16 03:44 Magnesium Hydroxide (Milk Of Magnesia Susp) 30 ml Q6H PRN PO 09/21/16 03:45 10/21/16 03:44 Polyethylene (Miralax Powder Packet) 17 gm DAILY PRN PO 09/21/16 03:45 10/21/16 03:44 Ondansetron HCl (Zofran Inj) 4 mg Q6H PRN IV 09/21/16 03:45 10/21/16 03:44 Albuterol (Ventolin Hfa Inhaler) 1 puffs QID PRN INH 09/21/16 03:45 10/21/16 03:44 Lisinopril (Zestril Tab) 2.5 mg DAILY PO 09/21/16 09:00 10/21/16 08:59 09/21/16 09:11 2.5 MG Metformin HCl (Glucophage Extended Rel Tab) 500 mg QDB PO 09/21/16 08:30 10/21/16 08:59 09/21/16 09:11 500 MG Metoprolol Tartrate (Lopressor Tab) 50 mg BID PO 09/21/16 09:00 10/21/16 08:59 09/21/16 09:00 50 MG Mometasone Furoate (Asmanex 220MCG Inh) 1 puff QPM INH 09/21/16 21:00 10/21/16 20:59 Insulin Aspart (novoLOG ASPART) SLIDING SCALE G... ACHS SC 09/21/16 12:00 10/21/16 11:59 UNV Review of Systems Cardiovascular: + palpitations Musculoskeletal: + muscle pain, + swelling Physical Exam Date Time Temp Pulse Resp B/P Pulse Ox O2 Delivery O2 Flow Rate FiO2 09/21/16 08:00 Room Air 09/21/16 07:40 36.7 95 16 124/75 95 Room Air 09/21/16 05:23 36.8 95 16 132/80 95 Room Air 09/21/16 04:21 78 18 128/86 97 Room Air 09/21/16 02:43 93 18 124/76 98 Room Air 09/21/16 01:07 80 18 154/79 98 Room Air 09/20/16 22:24 74 16 154/74 97 09/20/16 19:32 37.3 64 18 132/75 96 Room Air General Appearance: no apparent distress Head: normocephalic, atraumatic Eyes: normal inspection, EOMI ENT: hearing grossly normal Neck: supple, no adenopathy Respiratory/Chest: no respiratory distress, no accessory muscle use Abdomen/GI: non tender, soft Skin: + pertinent finding (large area of ecchymosis on right thigh primarily laterally. no erythema/sign of infection. minimal tenderness) Laboratory Results Last 24 Hours Test 09/20/16 20:20 09/21/16 04:10 09/21/16 07:50 White Blood Count 8.58 K/uL Red Blood Count 4.36 M/uL Hemoglobin 12.9 g/dL 11.0 g/dL 10.8 g/dL Hematocrit 39.8 % Mean Corpuscular Volume 91.3 fL Mean Corpuscular Hemoglobin 29.6 pg Mean Corpuscular Hemoglobin Concent 32.4 g/dl Platelet Count 194 K/uL Mean Platelet Volume 9.5 fL Neutrophils (%) (Auto) 69.5 % Lymphocytes (%) (Auto) 19.1 % Monocytes (%) (Auto) 8.9 % Eosinophils (%) (Auto) 2.0 % Basophils (%) (Auto) 0.2 % Neutrophils # (Auto) 5.96 K/uL Lymphocytes # (Auto) 1.64 K/uL Monocytes # (Auto) 0.76 K/uL Eosinophils # (Auto) 0.17 K/uL Basophils # (Auto) 0.02 K/uL RDW Standard Deviation 47.1 fL RDW Coefficient of Variation 14.0 % Immature Granulocyte % (Auto) 0.3 % Immature Granulocyte # (Auto) 0.03 K/uL Prothrombin Time 11.9 SECONDS Prothromb Time International Ratio 1.1 Activated Partial Thromboplast Time 26.1 SECONDS Partial Thromboplastin Ratio 1.0 Sodium Level 143 mmol/L Potassium Level 4.2 mmol/L Chloride Level 106 mmol/L Carbon Dioxide Level 29 mmol/L Anion Gap 8.0 mmol/L Blood Urea Nitrogen 21 mg/dl Creatinine 0.71 mg/dl Est Creatinine Clear Calc Drug Dose 63.2 ml/min Estimated GFR () 92.6 Estimated GFR (Non- 79.9 BUN/Creatinine Ratio 29.3 Random Glucose 201 mg/dl Calcium Level 9.3 mg/dl Assessment & Plan large soft tissue hematoma hold blood thinners temporarily H/H stable pain mild/controlled no sign of infection no surgical intervention at this time...if the hematoma would become infected would need I & D but for now conservative tx will follow during hospital stay
[2016-09-21] MEDS ORDERED: DEXTROSE 50% 50 ML SYR IV PRN (11:45)
[2016-09-21] MEDS ORDERED: GLUCOSE 40% GEL 15 GM TUBE PO PRN (11:45)
[2016-09-21] MEDS ORDERED: GLUCOSE 10 TABS/TUBE PO PRN (11:45)
[2016-09-21] MEDS ORDERED: DOCUSATE SODIUM 100 MG CAP PO ONE (11:45)
[2016-09-21] MEDS ORDERED: GLUCAGON FOR INJ 1 MG VIAL SQ PRN (11:45)
[2016-09-21] MEDS: POLYETHYLENE (MIRALAX) 17 GM PACK PO SCH (12:28)
[2016-09-21] MEDS: INSULIN ASPART 100 UNITS/ML 3 ML PEN SC SCH ×3 (13:18→21:00)
[2016-09-21 15:02] VITALS: BP 100/65; PULSE 85; TEMP 36.9; O2SAT 97
--- NOTE | 2016-09-21 20:33 | Progress Note ---
Subjective Date of Service: Sep 21, 2016. Subjective Pt evaluation today including: conversation w/ patient, conversation w/ family (daughter), physical exam, chart review, lab review, review of studies (femur x- ray, u/s right leg), review of inpatient medication list Pain: right thigh - mild only PO Intake: normal Voiding: no voiding problems no issues worked with PT - cleared for home Problem List Medical Problems: (1) Asthma Status: Chronic (2) Asthma, Unspecified Status: Chronic (3) Atrial fibrillation Status: Chronic (4) Diabetes mellitus Status: Chronic (5) Hematoma of right thigh Status: Acute (6) HTN (hypertension) Status: Chronic (7) Hyperlipidemia Nec/Nos Status: Chronic (8) Hypertension Status: Acute (9) Pruritic dermatitis Status: Acute Objective Vital Signs Date Time Temp Pulse Resp B/P Pulse Ox O2 Delivery O2 Flow Rate FiO2 09/21/16 15:02 36.9 85 18 100/65 97 Room Air 09/21/16 08:00 Room Air 09/21/16 07:40 36.7 95 16 124/75 95 Room Air 09/21/16 05:23 36.8 95 16 132/80 95 Room Air 09/21/16 04:21 78 18 128/86 97 Room Air 09/21/16 02:43 93 18 124/76 98 Room Air 09/21/16 01:07 80 18 154/79 98 Room Air 09/20/16 22:24 74 16 154/74 97 Physical Exam General Appearance: no apparent distress ENT: pharynx normal Neck: no JVD Respiratory/Chest: lungs clear, no respiratory distress, no accessory muscle use Cardiovascular: regular rate, rhythm, no gallop, no murmur Abdomen: normal bowel sounds, non tender, soft, no organomegaly Extremities: + pertinent finding (right thigh with very large hematoma & ecchymoses extending from just below the right hip down the leg and proximal to the right knee; minimal ecchymoses in the right calf area; left leg without edema) Neurologic/Psychiatric: alert, oriented x 3 Laboratory Results Last 24 Hours Test 09/21/16 04:10 09/21/16 07:50 09/21/16 11:46 09/21/16 14:20 Hemoglobin 11.0 g/dL 10.8 g/dL 10.8 g/dL Bedside Glucose 191 mg/dl Test 09/21/16 16:50 Bedside Glucose 131 mg/dl Assessment and Plan 81yo female: 1. acute blood loss anemia 2nd to right leg hematoma in setting of xarelto use - rechecked Hb this afternoon and is stable. CBC in am. 2. right leg hematoma 2nd to trauma - appreciate gen surg eval. no Rx needed from gen surg. ice x 48 hours, then heat thereafter. hold xarelto. cbc in am. 3. asthma - stable, no symptoms. 4. T2DM, uncontrolled - add novolog. 5. HTN - controlled. anticipate d/c in AM daughter updated Discharge planning: home
[2016-09-21] MEDS ORDERED: MOMETASONE FUROATE 14 PUFF/1 INHALER INH SCH (21:00)
[2016-09-21] MEDS: DOCUSATE SODIUM 100 MG CAP PO SCH (21:00)
[2016-09-21 21:22] VITALS: BP 112/71; PULSE 94
[2016-09-21 23:05] VITALS: BP 98/61; PULSE 62; TEMP 36.9; O2SAT 96
[2016-09-22] MEDS: ACETAMINOPHEN 325 MG TAB PO PRN (00:15)
[2016-09-22 05:41] LABS: HEMATOCRIT 32.8 % (37-47); MEAN CELL VOLUME 89.9 fL (80-100); MEAN CORPUSCULAR HEMOGLOBIN 29.6 pg (25-34); MEAN CORPUSCULAR HGB CONC 32.9 g/dl (32-36); PLATELET COUNT 184 K/uL (130-400); RED BLOOD COUNT 3.65 M/uL (4.2-5.4); WHITE BLOOD COUNT 6.63 K/uL (4.8-10.8)
[2016-09-22 07:47] VITALS: BP 103/68; PULSE 77; TEMP 36.7; O2SAT 97
[2016-09-22] MEDS: POLYETHYLENE (MIRALAX) 17 GM PACK PO SCH (09:00)
[2016-09-22] MEDS: METFORMIN HCL 500 MG TABCR PO SCH (09:17)
[2016-09-22] MEDS: LISINOPRIL 2.5 MG TAB PO SCH (09:17)
[2016-09-22] MEDS ORDERED: MRLP17 PO (09:17)
[2016-09-22] MEDS ORDERED: FRRS300 PO (09:17)
[2016-09-22] MEDS ORDERED: CLC100 PO (09:17)
[2016-09-22] MEDS: DOCUSATE SODIUM 100 MG CAP PO SCH (09:18)
[2016-09-22] MEDS: METOPROLOL TARTRATE 50 MG TAB PO SCH (09:19)
--- NOTE | 2016-09-22 09:21 | Surgery Progress Note ---
Surgery Progress Note Date of Service Sep 22, 2016. Subjective + feeling well feeling better each day. really no/minimal pain today Objective Vital Signs: Date Time Temp Pulse Resp B/P Pulse Ox O2 Delivery O2 Flow Rate FiO2 09/22/16 07:47 36.7 77 16 103/68 97 Room Air 09/21/16 23:05 36.9 62 18 98/61 96 Room Air 09/21/16 21:54 Room Air 09/21/16 21:22 94 112/71 09/21/16 15:02 36.9 85 18 100/65 97 Room Air General Appearance: no apparent distress Extremities: + pertinent finding (large area of ecchymosis/hematoma unchanged. no erythema/warmth/sign of infection. ) Laboratory Results: Results Past 24 Hours Test 09/21/16 11:46 09/21/16 14:20 09/21/16 16:50 09/21/16 20:39 Range/Units Bedside Glucose 191 131 148 70-90 mg/dl Hemoglobin 10.8 12.0-16.0 g/dL Test 09/22/16 05:11 09/22/16 07:53 Range/Units White Blood Count 6.63 4.8-10.8 K/uL Red Blood Count 3.65 4.2-5.4 M/uL Hemoglobin 10.8 12.0-16.0 g/dL Hematocrit 32.8 37-47 % Mean Corpuscular Volume 89.9 80-100 fL Mean Corpuscular Hemoglobin 29.6 25-34 pg Mean Corpuscular Hemoglobin Concent 32.9 32-36 g/dl RDW Standard Deviation 47.5 36.4-46.3 fL RDW Coefficient of Variation 14.4 11.5-14.5 % Platelet Count 184 130-400 K/uL Mean Platelet Volume 9.0 7.4-10.4 fL Bedside Glucose 127 70-90 mg/dl Assessment & Plan traumatic LE hematoma H/H stable no indication for surgical intervention at this time will sign off please call if we can help
[2016-09-22] MEDS: INSULIN ASPART 100 UNITS/ML 3 ML PEN SC SCH (09:24)
--- NOTE | 2016-09-22 09:29 | Discharge Instructions ---
Discharge Instructions Date of Service Sep 22, 2016. Admission Reason for Admission: Hematoma Of Thigh Discharge Discharge Diagnosis / Problem: Hematoma of right thigh - stable, no ongoing bleeding Discharge Goals Goal(s): Decrease discomfort, Learn about illness, Diagnostic testing, Therapeutic intervention Activity Recommendations Activity Limitations: resume your previous activity (as tolerated) . Instructions / Follow-Up Instructions / Follow-Up From Dr. Cervantes: 1. Right thigh hematoma - * Due to the bleeding please STOP your xarelto. Your family doctor will tell you when it is safe to resume this medication. * Tylenol is OK for any pain. Avoid any [id number]-[id number] motrin, ibuprofen, aleve, etc. * Today - Friday09/22/16 - please place ice on the right thigh for 20-30 minutes at a time several times today. * Tomorrow - Friday09/23/16 - switch to warm packs/heat to the right thigh as much as tolerated as this will speed resolution of the hematoma. * The hematoma will take WEEKS to fully resolve. You will see a rainbow of colors over the thigh over the next 1-2 weeks. 2. A. fib - * again please STOP your xarelto 3. Constipation - * purchase jixl-wvm-ocuzybd colace and miralax and take both products for prevention & treatment of constipation (especially important while taking iron) 4. Anemia due to the hematoma - * You are mildly anemic (low red cells) from the bleeding in the right leg. * Please purchase nsgx-ree-gijydbj ferrous sulfate (iron) and take 1 iron tablet daily. * Please note that iron will make your stool look dark and also make you constipated. 5. Please follow-up with Dr. Alejo on 09/25/16 as already scheduled. 6. Return to [facility] if: * You feel the right leg hematoma is getting worse. * You have pain in the right leg that is not being controlled by tylenol. * Fever over 100.5 degrees. Current Hospital Diet Patient's current hospital diet: AHA Diet (Heart Healthy), Diabetes Type 2 Diet Discharge Diet Recommended Diet: Diabetes Type 2 Diet Procedures Procedures Performed: 1. right thigh ultrasound showing the hematoma. 2. right hip x-rays NEGATIVE for fracture of the hip. 3. right femur x-rays NEGATIVE for fracture of the right femur bone. Pending Studies Studies pending at discharge: no Laboratory Results Hemoglobin A1c Test 09/16/16 07:43 Range/Units Estimated Average Glucose 163 mg/dl Hemoglobin A1c 7.3 H 4.5-5.6 % Lipid Panel Test 09/16/16 07:43 Range/Units Triglycerides Level 99 0-150 mg/dl Cholesterol Level 130 0-200 mg/dl HDL Cholesterol 57 mg/dl Cholesterol/HDL Ratio 2.3 LDL Cholesterol, Calculated 53 mg/dl Medical Emergencies . Who to Call and When: Medical Emergencies: If at any time you feel your situation is an emergency, please call 911 immediately. . Non-Emergent Contact Non-Emergency issues call your: Primary Care Provider Call Non-Emergent contact if: temperature is above 100.5, your pain is not controlled, your pain is worsening, your pain is unusual for you, your pain is concerning you, you have any medication questions . . "Provider Documentation" section prepared by Edgar Cervantes. VTE Core Measure Inpt VTE Proph given/why not?: SCD's, Contraindicated
[2016-09-22 11:16] VITALS: BP 103/68; PULSE 77; TEMP 36.7; O2SAT 97
--- NOTE | 2016-09-25 23:20 | Discharge Summary ---
Discharge Summary Date of Service Sep 25, 2016. Discharge Summary Admission Date: Sep 21, 2016 at 03:39 Discharge Date: Sep 22, 2016 Discharge Disposition: Home Principal Diagnosis: right thigh hematoma - traumatic in the setting of chronic anticoagulation Problems/Secondary Diagnoses: Other problems addressed while hospitalized: 1. acute blood loss anemia Chronic medical problems: 1. asthma 2. atrial fibrillation 3. T2DM 4. HTN 5. Hyperlipidemia Immunizations: Have You Had Influenza Vaccine: N/A History of Tetanus Vaccine?: unknown History of Pneumococcal: unknow History of Hepatitis B Vaccine: unknown Procedures: ultrasound of right thigh demonstrating large hematoma right hip and pelvic x-rays negative for fracture Consultations: physical therapy general surgery - Wade Power, Medication Reconciliation New Medications: Ferrous Sulfate (Ferrous Sulfate) 325 Mg Tab 325 MG PO DAILY, #30 1 Refill Docusate Sodium (Docusate Sodium) 100 Mg Cap 100 MG PO BID, #60 CAP 2 Refills Polyethylene (Miralax) 17 Gm Pow 17 GM PO DAILY, #1 BTL 2 Refills Continued Medications: Albuterol Hfa (Ventolin Hfa) 200 Puffs/26712 Mcg Aers 2 PUFF INH QID PRN for SOB/Wheezing, #1 INHALER Lisinopril (Zestril) 5 Mg Tab 2.5 MG PO DAILY, TAB Metformin HCl (Metformin HCl ER) 500 Mg Tabcr 500 MG PO DAILY Metoprolol Tartrate (Lopressor) (Lopressor) 50 Mg Tab 50 MG PO BID, TAB Mometasone Furoate (Asmanex Twisthaler 30 Me) 30 Puff/Inhaler Aerp 1 PUFF INH QPM Discontinued Medications: Rivaroxaban (Xarelto) 20 Mg Tab 20 MG PO DAILY Discharge Exam Physical Exam: General Appearance: no apparent distress ENT: pharynx normal Neck: no JVD Respiratory/Chest: lungs clear, no respiratory distress, no accessory muscle use Cardiovascular: regular rate, rhythm, no gallop, no murmur, normal peripheral pulses Abdomen / GI: normal bowel sounds, non tender, soft, no organomegaly Extremities: + swelling (right thigh extending from the right hip down to the knee and mildly into the right distal leg as well) Neurologic/Psychiatric: alert, oriented x 3 Skin: + pertinent finding (extensive ecchymoses/hematoma about the right thigh; ecchymoses extending from the proximal thigh down to the knee; mild amount of ecchymoses in the proximal calf region laterally) Hospital Course HISTORY OF PRESENT ILLNESS: The patient is an 81year-old female who presented to the Emergency Room via private vehicle accompanied by her daughter with complaints of worsening pain and swelling along with bruising in her right thigh. The patient stated that she was evaluated in the [facility] ER on September 13 for her HTN and while exiting the emergency department she fell in the lobby. She stated that she was overall doing well until this evening when she was sitting down and developed a sharp pain in the right lateral thigh and noticed severe swelling and bruising. She stated that there was pain with walking. She reported she was taking xarelto for anticoagulation for her a. fib. Denied any head injury , chest pain, or shortness of breath. HOSPITAL COURSE: The patient was admitted due to her significant pain from the right thigh hematoma, drop in hemoglobin, and to monitor the right thigh for any worsening. She was seen in consult by general surgery who recommended conservative measures. Her xarelto was discontinued. Admission hemoglobin was 12.9 and discharge hemoglobin was 10.8. Her hemoglobin remained stable for well over 24 hours prior to discharge. ICE was applied to the thigh for the time she was here. She was instructed, however, to switch to heat upon return home. Physical therapy was consulted and she was cleared for discharge home. In addition to discontinuing her xarelto she was asked to take an iron supplement for 4-6 weeks in light of her acute blood loss anemia. Follow-up with her PCP, Dr. Alejo, was previously scheduled for 09/25/16. Total Time Spent: Less than 30 minutes This includes examination of the patient, discharge planning, medication reconciliation, and communication with other providers. Discharge Instructions Please refer to the electronic Patient Visit Report (Discharge Instructions) for additional information. Follow-Up see Dr. Alejo on 09/25/16 as previously scheduled Additional Copies To Lizzie Alejo M.D.; Ariadna Garcia, CJean Carlos.NToan
== END 2016-09-22 11:40 | disposition home or self-care (01) | DRG 605 ==
LOC: ENRESERVTM → ENRESERVDT → C.EDB 19:24 → C.MSN 09-21 03:39
PROVIDERS: ADMIT Internal Medicine; ATTEND Internal Medicine
DX: S70.11XA Contusion of right thigh, initial encounter (principal); D62 Acute posthemorrhagic anemia; I48.92 Unspecified atrial flutter; W18.30XA Fall on same level, unspecified, initial encounter; Y92.538 Other ambulatory health services establishments as the place of occurrence of the external cause; T45.515A Adverse effect of anticoagulants, initial encounter; J45.909 Unspecified asthma, uncomplicated; E11.65 Type 2 diabetes mellitus with hyperglycemia; I10 Essential (primary) hypertension; Z79.01 Long term (current) use of anticoagulants; Z79.51 Long term (current) use of inhaled steroids; Z79.84 Long term (current) use of oral hypoglycemic drugs; Z79.899 Other long term (current) drug therapy

== ENCOUNTER → 2016-10-07 | Outpatient (CLI) | payer OTHER ==
[~2016-10-07] MED LIST changes: +CLC100 PO; +FRRS300 PO; +MRLP17 PO; -RIVA1TAB4 PO
[2016-10-07 12:39] LABS: HEMATOCRIT 36.7 % (37-47); MEAN CELL VOLUME 94.3 fL (80-100); MEAN CORPUSCULAR HEMOGLOBIN 29.6 pg (25-34); MEAN CORPUSCULAR HGB CONC 31.3 g/dl (32-36); MEAN PLATELET VOLUME 9.1 fL (7.4-10.4); PLATELET COUNT 238 K/uL (130-400); RED BLOOD COUNT 3.89 M/uL (4.2-5.4); WHITE BLOOD COUNT 5.37 K/uL (4.8-10.8)
[2016-10-07 13:15] LABS: RATIO 6.8 mcg/mg (0-30.0)
== END | disposition home or self-care (01) ==
LOC: C.LABBFT 07:45
PROVIDERS: ATTEND Nurse Practitioner
DX: T14.8 Other injury of unspecified body region (principal); X58.XXXA Exposure to other specified factors, initial encounter

== ENCOUNTER → 2016-11-14 | Outpatient (CLI) | payer OTHER ==
--- NOTE | 2016-11-14 15:40 | MAMMOGRAPHY REPORT ---
BILATERAL DIGITAL SCREENING MAMMOGRAM WITH CAD: 11/14/2016 CLINICAL HISTORY: Routine screening. Patient has no complaints. TECHNIQUE: Current study was also evaluated with a Computer Aided Detection (CAD) system. Bilatera l CC and MLO views were obtained. COMPARISON: Comparison is made to exams dated: 10/26/2015 mammogram, 03/29/2013 mammogram, 03/26/2012 mammogram, 03/25/2011 mammogram, 03/22/2010 mammogram - [facility], and 03/20/2009. BREAST COMPOSITION: The tissue of both breasts is almost entirely fatty. FINDINGS: No suspicious masses, calcifications, or areas of architectural distortion are noted in e ither breast. There has been no significant interval change compared to prior exams. Scattered bilat eral benign-appearing calcifications are not significantly changed. IMPRESSION: ACR BI-RADS CATEGORY 2: BENIGN There is no mammographic evidence of malignancy. A 1 year screening mammogram is recommended. The p atient will receive written notification of the results. Approximately 10% of breast cancers are not detected with mammography. A negative mammographic repor t should not delay biopsy if a clinically suggestive mass is present. Sophie Payne M.D. ah/:11/14/2016 12:31:00 Inbound [employer] Specialist: Mickie ROLDAN(Wu)(M), [facility] letter sent: Normal 1/2 BI-RADS Code: ACR BI-RADS Category 2: Benign
== END | disposition home or self-care (01) ==
LOC: C.MAMM 09:26
PROVIDERS: ATTEND Nurse Practitioner
DX: Z12.31 Encounter for screening mammogram for malignant neoplasm of breast (principal)

== ENCOUNTER → 2017-01-29 | Outpatient (CLI) | payer OTHER ==
--- NOTE | 2017-01-29 09:30 | DIAGNOSTIC IMAGING REPORT ---
CHEST 2 VIEWS ROUTINE HISTORY: 81 years-old Female J45.901 Asthma with acute exacerbation COMPARISON: Chest radiograph 09/13/2016 TECHNIQUE: Frontal and lateral views of the chest FINDINGS: Cardiac silhouette is mildly enlarged and unchanged. There is atherosclerosis of the aorta. There is no pneumothorax, pleural effusion, focal airspace consolidation or overt pulmonary edema. The lungs are mildly hyperinflated. The bones appear grossly intact with multilevel endplate degenerative changes throughout the spine. IMPRESSION: 1. Mild hyperinflation without acute cardiopulmonary process. 2. Cardiomegaly. The above report was generated using voice recognition software. It may contain grammatical, syntax or spelling errors. Electronically signed by: Juancho Tobin M.D. 01/29/2017 9:29 AM Dictated Date/Time: 01/29/2017 9:27 AM
== END | disposition home or self-care (01) ==
LOC: C.RAD1850 09:09
PROVIDERS: ATTEND Nurse Practitioner
DX: J45.901 Unspecified asthma with (acute) exacerbation (principal)

== ENCOUNTER → 2017-03-24 | Outpatient (CLI) | payer OTHER ==
[2017-03-24 12:13] LABS: HEMATOCRIT 41.5 % (37-47); MEAN CELL VOLUME 92.6 fL (80-100); MEAN CORPUSCULAR HEMOGLOBIN 29.9 pg (25-34); MEAN CORPUSCULAR HGB CONC 32.3 g/dl (32-36); MEAN PLATELET VOLUME 9.8 fL (7.4-10.4); PLATELET COUNT 172 K/uL (130-400); RED BLOOD COUNT 4.48 M/uL (4.2-5.4); WHITE BLOOD COUNT 6.42 K/uL (4.8-10.8)
[2017-03-24 12:29] LABS: ALT/SGPT 28 U/L (12-78); AST/SGOT 19 U/L (15-37); BLOOD UREA NITROGEN 18 mg/dl (7-18); BUN/CREATININE RATIO 29.2 (10-20); CALCIUM 8.6 mg/dl (8.5-10.1); CARBON DIOXIDE 29 mmol/L (21-32); CHLORIDE 109 mmol/L (98-107); GLUCOSE 140 mg/dl (70-99); SODIUM 143 mmol/L (136-145)
[2017-03-24 12:32] LABS: ALB/GLOB RATIO 1.3 (0.9-2); ALKALINE PHOSPHATASE 65 U/L (45-117); CHOLESTEROL 123 mg/dl (0-200); CHOLESTEROL/HDL RATIO 2.1; HDL CHOLESTEROL 60 mg/dl; LDL CHOLESTEROL CALCULATED 48 mg/dl; TRIGLYCERIDES 73 mg/dl (0-150); VERY LOW DENSITY LIPOPROT CALC 15 mg/dl
[2017-03-24 13:06] LABS: RATIO 5.9 mcg/mg (0-30.0)
[2017-03-24 13:19] LABS: ESTIMATED AVERAGE GLUCOSE 154 mg/dl; HA1C FLAG Normal (Normal)
== END | disposition home or self-care (01) ==
LOC: C.LABBFT 07:43
PROVIDERS: ATTEND Nurse Practitioner
DX: E11.9 Type 2 diabetes mellitus without complications (principal); E78.00 Pure hypercholesterolemia, unspecified; I10 Essential (primary) hypertension

== ENCOUNTER → 2017-09-25 | Outpatient (CLI) | payer OTHER ==
[2017-09-25 12:17] LABS: BASO % 0.6 %; BASO ABS # 0.03 K/uL (0-0.2); EOS ABS # 0.34 K/uL (0-0.5); HEMATOCRIT 43.8 % (37-47); HEMOGLOBIN 14.4 g/dL (12.0-16.0); IG# 0.01 K/uL (0.00-0.02); LYMPH % 34.5 %; LYMPH ABS # 1.67 K/uL (1.2-3.4); MEAN CELL VOLUME 93.6 fL (80-100); MEAN CORPUSCULAR HEMOGLOBIN 30.8 pg (25-34); MEAN CORPUSCULAR HGB CONC 32.9 g/dl (32-36); MEAN PLATELET VOLUME 9.8 fL (7.4-10.4); MONO % 9.5 %; MONO ABS # 0.46 K/uL (0.11-0.59); NEUT % 48.2 %; NEUT ABS # 2.33 K/uL (1.4-6.5); PLATELET COUNT 159 K/uL (130-400); RED CELL DISTRIBUTION WIDTH CV 14.4 % (11.5-14.5); RED CELL DISTRIBUTION WIDTH SD 48.7 fL (36.4-46.3); WHITE BLOOD COUNT 4.84 K/uL (4.8-10.8)
[2017-09-25 12:29] LABS: ALBUMIN 3.5 gm/dl (3.4-5.0); ALT/SGPT 30 U/L (12-78); BLOOD UREA NITROGEN 17 mg/dl (7-18); CALCIUM 8.9 mg/dl (8.5-10.1); CARBON DIOXIDE 31 mmol/L (21-32); CHOLESTEROL 130 mg/dl (0-200); CREATININE 0.64 mg/dl (0.60-1.20); GLUCOSE 159 mg/dl (70-99); POTASSIUM 3.9 mmol/L (3.5-5.1); SODIUM 141 mmol/L (136-145)
[2017-09-25 12:32] LABS: ALKALINE PHOSPHATASE 75 U/L (45-117); AST/SGOT 24 U/L (15-37); LDL CHOLESTEROL CALCULATED 53 mg/dl; TOTAL PROTEIN 6.3 gm/dl (6.4-8.2)
[2017-09-25 13:11] LABS: HEMOGLOBIN A1C 7.2 % (4.5-5.6)
== END | disposition home or self-care (01) ==
LOC: C.LABBFT 07:34
PROVIDERS: ATTEND Nurse Practitioner
DX: I10 Essential (primary) hypertension (principal); E78.00 Pure hypercholesterolemia, unspecified; E11.9 Type 2 diabetes mellitus without complications

== ENCOUNTER → 2017-10-22 | Day surgery (SDC) | payer OTHER ==
[~2017-10-22] VITALS: Ht 162.6 cm; Wt 72.0 kg
[~2017-10-22] MED LIST changes: +FENTANYL CITRATE INJ 50 MCG/1 ML 2 ML VIAL IV ONE; +FENTANYL CITRATE INJ 50 MCG/1 ML 2 ML VIAL ONE; +LIDOCAINE HCL 1% 20 ML VIAL ONE; +LIDOCAINE HCL 1% 20 ML VIAL SQ ONE; +MIDAZOLAM HCL 1 MG/ML 2ML VIAL IV ONE; +MIDAZOLAM HCL 1 MG/ML 2ML VIAL ONE; +ORM MISCELLANEOUS MED XX ONE; +SODIUM CHLORIDE 0.9% 1000ML 1,000 ML IV SCH
[2017-10-22 09:54] VITALS: BP 173/79; PULSE 67; TEMP 37; O2SAT 100; Ht 162.6 cm; Wt 72.0 kg
--- NOTE | 2017-10-22 10:30 | Pre Sedation Assessment ---
Pre Sedation Assessment General Date of Sedation: Oct 22, 2017. Vital Signs Past 12 Hours Date Time Temp Pulse Resp B/P (MAP) Pulse Ox O2 Delivery O2 Flow Rate FiO2 10/22/17 09:54 37 67 16 173/79 (110) 100 Room Air Review Cardiovascular: regular rate, rhythm Lungs: chest non-tender, lungs clear Pre-Sedation Airway Assessment Smoking Status: Former Smoker Hx of Sleep Apnea: No Hx of difficult intubation: No Short Thick Neck: No Oral Cavity: Dentures Mallampati Classification: Class II ASA Classification: Class II NPO Status Date of Last Intake of Fluids: Oct 21, 2017 Time of Last Intake of Fluids: 0700 Date of Last Intake of Solids: Oct 21, 2017 Time of Last Intake of Solids: 0700 Procedure Planning Contraindications for Sedation: None Current Medications Reviewed: Yes Notes The planned sedation has been discussed with the patient. Informed Consent was obtained. I have identified the patient, determined the appropriateness of sedation and have assessed the patient immediately prior to the procedure. All medicine(s) and interventions are by my order.
--- NOTE | 2017-10-22 10:30 | History and Physical ---
History & Physical Date Oct 22, 2017. History of Present Illness Mrs. Miller is an 82-year-old female with a history of paroxysmal atrial fibrillation, hypertension, hyperlipidemia, diabetes, and chronic venous insufficiency here for right GSV RFA. Has had longstanding bilateral lower extremity pain. Endorses pain in her calves/shins, right greater than left. Notes persistent right greater than left lower extremity swelling. Has previously tried compression stockings for venous insufficiency which she has been unable to tolerate. Venous reflux ultrasound showed right GSV to be dilated with reflux. Right SSV dilated with reflux and partial chronic thrombosis. Past Medical/Surgical History Medical Problems: (1) Asthma (2) Asthma, Unspecified (3) Atrial fibrillation (4) Contusion of left upper extremity (5) Contusion of rib on right side (6) Diabetes mellitus (7) Fall from slip, trip, or stumble (8) Hematoma of thigh (9) HTN (hypertension) (10) Hyperlipidemia Nec/Nos (11) Left shoulder strain (12) Lumbar back pain (13) New onset atrial flutter (14) New onset atrial flutter (15) Skin tear of left hand without complication (16) Vaginal bleeding Allergies Coded Allergies: Simvastatin (Verified Adverse Reaction, Intermediate, DIZZINESS, 10/22/17) Home Medications Scheduled Docusate Sodium (Docusate Sodium), 100 MG PO BID Ferrous Sulfate (Ferrous Sulfate), 325 MG PO DAILY Lisinopril (Zestril), 2.5 MG PO DAILY Metformin HCl (Metformin HCl ER), 500 MG PO DAILY Metoprolol Tartrate (Lopressor) (Lopressor), 50 MG PO BID Mometasone Furoate (Asmanex Twisthaler 30 Me), 1 PUFF INH QPM Polyethylene (Miralax), 17 GM PO DAILY Scheduled PRN Albuterol Hfa (Ventolin Hfa), 2 PUFF INH QID PRN for SOB/Wheezing Physical Examination Skin: warm/dry Eyes: normal inspection ENT: normal ENT inspection Neck: supple Respiratory/Chest: lungs clear Cardiovascular: regular rate, rhythm Abdomen / GI: normal bowel sounds Extremities: + pertinent finding (right lower extremity edema. ) Neurologic/Psych: no motor/sensory deficits, alert Diagnosis Chronic venous insufficiency ASA Classification: ASA Class II Plan of Treatment Proceed with right GSV RFA
--- NOTE | 2017-10-22 12:26 | Post Sedation Assessment ---
Post Sedation Assessment General Date of Sedation Oct 22, 2017. Vital Signs: Vital Signs Past 12 Hours Date Time Temp Pulse Resp B/P (MAP) Pulse Ox O2 Delivery O2 Flow Rate FiO2 10/22/17 11:04 64 16 194/87 100 Oxymask 2 10/22/17 09:54 37 67 16 173/79 (110) 100 Room Air Post Procedure Recovery Score Activity: (2) Moves 4 extremities * Respiration: (2) Deep breath/cough Circulation: (2) +/-20% PreAnes Value Consciousness: (2) Fully Awake Oxygen Saturation: (2) > 92% On Room Air Discharge Sedation Level of Care: Fast Track Phase II Post Sedation Plan On clinical assessment, the patient appears to have tolerated the sedation without complications. Patient is recovering as anticipated. Patient will continue to be monitored by nursing and may be discharged when sedation discharge criteria are met per below protocol. Upon Completions of procedure and additional 15 minutes continue every 5 minute vital signs and the P.A.R. score; then discharge to a Phase I or Fast Track to Phase II per the following guidelines: * Discharge Patient to appropriate Phase II area if PAR is 8 or greater or return to pre- procedure baseline. The post - procedure orders will be as directed. * If PAR score is less than 8 or not return to pre-procedure baseline then patient will follow Phase I monitoring till PAR is reached for Phase II. The Phase I may be done in procedure room or may call to secure a Phase I area. * If naloxone or flumazenil are used for reversal, hold in Phase I for an additional 60 -120 minutes before discharge to Phase II. Please call the Sedation Physician to re-evaluate and complete post-note for discharge to Phase II area. Do NOT discharge from procedure sedation or Phase 1 until post- sedation evaluation note is complete by procedure /sedation MD Sedation Discharge Instructions to be given to the patient at discharge to home.
--- NOTE | 2017-10-22 12:30 | [facility] Operative Report ---
Operative Report Operative Date Oct 22, 2017. Pre-Operative Diagnosis Venous Insufficiency Post-Operative Diagnosis Venous Insufficiency Procedure(s) Performed Right Leg Greater Saphenous Vein Radiofrequency Ablation, Moderate Sedation from 1139 - 1219. Surgeon Dr. Flaherty Pulp Mixer Surgeon(s) None Estimated Blood Loss 15 Findings Dilated right GSV with varicies Specimens None Drains None Anesthesia Type None Complication(s) none Disposition Recovery Room / PACU Description of Procedure US guided access Right GSV above the knee. Difficulty passing catheter to proximal vessel. Tumescent injected. 1:20, 4 cycles of RFA right GSV in distal thigh. 2nd access site in mid thigh. Catheter inserted, 2.5 cm from SFJ. Tumescent injected. US confirmed not in deep system. 2:00, 6 cycles of RFA right GSV. No complications. Patient tolerated well. US confirmed no DVT post procedure. Summary: 1. Successful RFA of right GSV I attest to the content of the Intraoperative Record and any orders documented therein. Any exceptions are noted below.
--- NOTE | 2017-10-22 12:31 | Discharge Instructions ---
Discharge Instructions Procedure Procedure Date: Oct 22, 2017. Reason for Visit: Chronic Venous Insufficiency. Discharge Discharge Date: Oct 22, 2017. Discharge Diagnosis: Chronic venous insufficiency Last Recorded Wt (Kilograms): 72 Anesthesia Post Anesthesia Instructions: If you have had General Anesthesia or IV Sedation: * Do not drive today. * Resume driving when surgeon permits. * Do not make important decisions or sign legal documents today. * Call surgeon for: 1. Temperature elevations greater than 101 degrees F. 2. Uncontrollable pain. 3. Excessive bleeding. 4. Persistent nausea and vomiting. 5. Medication intolerance (nausea, vomiting or rash). * For nausea and vomiting use only clear liquids such as: tea, soda, bouillon until nausea subsides, then gradually increase diet as tolerated. * If you have any concerns or questions, call your surgeon's office. If physician is unavailable and it is an emergency, call 911 or go to the nearest emergency room. Instructions Activity Recommendations: limitations as noted below Recommended Home Diet: resume previous diet Allergies: Coded Allergies: Simvastatin (Verified Adverse Reaction, Intermediate, DIZZINESS, 10/22/17) Follow Up Additional Instructions: Follow instructions as outlined in paperwork from Dr. Flaherty' office. Up walking today. Follow up Ultrasound as scheduled. SUSU wrap until scheduled ultrasound Post ultrasound wear compression stockings indefinitely. Any severe pain, present to the emergency room for evaluation for DVT. Follow-up with: As scheduled Kevin Kaminski Recommendations: Call your doctor if: * Temperature above 101 degrees * Pain not relieved by pain medicine ordered * There is increased drainage or redness from any incision * You have any unanswered questions or concerns. Your Doctors Instructions noted above were prepared by provider Huy Flaherty. Patient Signature Section: Patient Instructions Signature Page Halina Miller Patient (or Guardian) Signature/Date: I have read and understand the instructions given to me by my caregivers. Caregiver/RN/Doctor Signature/Date: The above-named patient and/or guardian has received patient instructions on this date. + Original Patient Signature Page (only) stays with chart. Please make copy for patient.
[2017-10-22 12:40] VITALS: BP 180/83; PULSE 67; TEMP 36.5; O2SAT 100
[2017-10-22 13:10] VITALS: BP 164/82; PULSE 73; TEMP 36.5; O2SAT 100
== END | disposition home or self-care (01) ==
LOC: C.ACU 09:18
PROVIDERS: ATTEND Internal Medicine Interventional Cardiology
DX: I87.2 Venous insufficiency (chronic) (peripheral) (principal); I48.0 Paroxysmal atrial fibrillation; I10 Essential (primary) hypertension; E78.5 Hyperlipidemia, unspecified; E11.9 Type 2 diabetes mellitus without complications; J45.909 Unspecified asthma, uncomplicated; Z90.710 Acquired absence of both cervix and uterus; Z98.49 Cataract extraction status, unspecified eye; Z80.9 Family history of malignant neoplasm, unspecified; Z83.3 Family history of diabetes mellitus; Z82.3 Family history of stroke; Z87.891 Personal history of nicotine dependence; Z79.899 Other long term (current) drug therapy

== ENCOUNTER → 2017-10-28 | Outpatient (CLI) | payer OTHER ==
[~2017-10-28] MED LIST changes: -FENTANYL CITRATE INJ 50 MCG/1 ML 2 ML VIAL IV ONE; -FENTANYL CITRATE INJ 50 MCG/1 ML 2 ML VIAL ONE; -LIDOCAINE HCL 1% 20 ML VIAL ONE; -LIDOCAINE HCL 1% 20 ML VIAL SQ ONE; -MIDAZOLAM HCL 1 MG/ML 2ML VIAL IV ONE; -MIDAZOLAM HCL 1 MG/ML 2ML VIAL ONE; -ORM MISCELLANEOUS MED XX ONE; -SODIUM CHLORIDE 0.9% 1000ML 1,000 ML IV SCH
[2017-10-28 12:30] LABS: BLOOD UREA NITROGEN 16 mg/dl (7-18); CALCIUM 9.7 mg/dl (8.5-10.1); CARBON DIOXIDE 32 mmol/L (21-32); CREATININE 0.66 mg/dl (0.60-1.20); GLUCOSE 140 mg/dl (70-99); POTASSIUM 4.4 mmol/L (3.5-5.1); SODIUM 140 mmol/L (136-145)
== END | disposition home or self-care (01) ==
LOC: C.LABBFT 08:14
PROVIDERS: ATTEND Nurse Practitioner
DX: I10 Essential (primary) hypertension (principal)

== ENCOUNTER → 2017-11-17 | Outpatient (CLI) | payer OTHER ==
--- NOTE | 2017-11-18 15:04 | MAMMOGRAPHY REPORT ---
BILATERAL DIGITAL SCREENING MAMMOGRAM TOMOSYNTHESIS WITH CAD: 11/17/2017 CLINICAL HISTORY: Routine screening. Patient has no complaints. TECHNIQUE: Breast tomosynthesis in addition to standard 2D mammography was performed. Current study was also evaluated with a Computer Aided Detection (CAD) system. COMPARISON: Comparison is made to exams dated: 11/14/2016 mammogram, 10/26/2015 mammogram, 03/29/2013 m ammogram, 03/26/2012 mammogram, 03/25/2011 mammogram, and 03/22/2010 mammogram - [facility] enter. BREAST COMPOSITION: There are scattered areas of fibroglandular density in both breasts. FINDINGS: There are moderate vascular calcifications in the breasts. Diffuse benign-appearing rodlik e and coarse calcifications. No suspicious mass, architectural distortion or cluster of microcalcifi cations is seen. IMPRESSION: ACR BI-RADS CATEGORY 1: NEGATIVE There is no mammographic evidence of malignancy. A 1 year screening mammogram is recommended. The pa tient will receive written notification of the results. Approximately 10% of breast cancers are not detected with mammography. A negative mammographic report should not delay biopsy if a clinically suggestive mass is present. Emely Obrien M.D. ay/:11/17/2017 16:28:49 Resawyer: Belia JOHNSON)([place]), [facility] letter sent: Normal 1/2 BI-RADS Code: ACR BI-RADS Category 1: Negative
== END | disposition home or self-care (01) ==
LOC: C.MAMM 09:17
PROVIDERS: ATTEND Nurse Practitioner
DX: Z12.31 Encounter for screening mammogram for malignant neoplasm of breast (principal)

== ENCOUNTER 2017-11-26 06:49 | Emergency (ER) | payer OTHER ==
[~2017-11-26] VITALS: Ht 160 cm; Wt 72.2 kg
[2017-11-26 06:49] VITALS: TEMP 36.8; Ht 160 cm; Wt 72.2 kg
[2017-11-26 07:00] VITALS: O2SAT 96
--- NOTE | 2017-11-26 07:36 | DIAGNOSTIC IMAGING REPORT ---
CHEST ONE VIEW PORTABLE HISTORY: dizzy COMPARISON: Chest 01/29/2017. FINDINGS: The heart is mildly enlarged. The lungs are clear. No pleural effusions. No pneumothorax. No fractures within the visualized osseous structures. Mild bibasilar interstitial thickening which is likely chronic. IMPRESSION: Mild cardiomegaly, unchanged. Electronically signed by: Ivan Villegas M.D. 11/26/2017 7:34 AM Dictated Date/Time: 11/26/2017 7:32 AM
--- NOTE | 2017-11-26 07:50 | EMERGENCY ROOM VISIT NOTE ---
History Report prepared by Barrera: Fermin Horowitz Under the Supervision of: Dr. Kavita Mathias M.D. First contact with patient: 06:50 Chief Complaint: DIZZY Stated Complaint: LIGHTHEADED/DIZZY Nursing Triage Summary: Pt presents to room B09 by [facility] from home. Pt reports this morning when she stood up out of bed she felt dizzy, lightheaded and "was shaking all over". Pt reports she took her BP with home wrist cuff and it read 70 systolic. EMS report when they arrived pt was ambulatory around her house without incident. Pt transported to hospital and pt reports "I started to feel better on the drive over". Upon arrival pt denies dizziness or lightheadedness. No reports of pain. Right leg swelling which pt reports "is normal". History of Present Illness The patient is an 82 year old female who presents to the Emergency Room with complaints of now-resolved diffuse shaking across her body. The patient states that when she woke up this morning she felt normal as she was laying in bed. When she stood up she began to "shake" all over. She notes that the shaking lasted for about 15 minutes. She denies any nausea, chest pain, dizziness, or feelings of syncope. The patient notes that she has not had any bowel/urinary symptoms. The patient notes that the shaking has resolved and she has absolutely no complaints at this time. The patient is a diabetic and notes that she took her medication yesterday and today. Source of History: patient Onset: This morning Position: other (Diffuse) Symptom Intensity: 15 minute episode of shaking Quality: other (Shaking) Timing: resolved Associated Symptoms: No LOC, No chest pain, No nausea Review of Systems See HPI for pertinent positives & negatives. A total of 10 systems reviewed and were otherwise negative. Past Medical & Surgical Medical Problems: (1) Asthma (2) Asthma, Unspecified (3) Atrial fibrillation (4) Contusion of left upper extremity (5) Contusion of rib on right side (6) Diabetes mellitus (7) Fall from slip, trip, or stumble (8) Hematoma of thigh (9) HTN (hypertension) (10) Hyperlipidemia Nec/Nos (11) Left shoulder strain (12) Lumbar back pain (13) New onset atrial flutter (14) New onset atrial flutter (15) Skin tear of left hand without complication (16) Vaginal bleeding Family History FH: cancer Social History Smoking Status: Former Smoker Alcohol Use: none Marital Status: Housing Status: lives with family Occupation Status: retired Current/Historical Medications Scheduled Docusate Sodium (Docusate Sodium), 100 MG PO BID Ferrous Sulfate (Ferrous Sulfate), 325 MG PO DAILY Lisinopril (Zestril), 10 MG PO BID Metformin HCl (Metformin HCl ER), 1,000 MG PO DAILY Metoprolol Tartrate (Lopressor) (Lopressor), 50 MG PO BID Mometasone Furoate (Asmanex Twisthaler 30 Me), 1 PUFF INH QPM Polyethylene (Miralax), 17 GM PO DAILY Rivaroxaban (Xarelto), 20 MG PO DAILY Scheduled PRN Albuterol Hfa (Ventolin Hfa), 2 PUFF INH QID PRN for SOB/Wheezing Allergies Coded Allergies: Simvastatin (Verified Adverse Reaction, Intermediate, DIZZINESS, 11/26/17) Physical Exam Vital Signs Date Time Temp Pulse Resp B/P (MAP) Pulse Ox O2 Delivery O2 Flow Rate FiO2 11/26/17 09:15 62 18 150/79 97 Room Air 11/26/17 08:45 62 20 197/90 98 Room Air 11/26/17 07:40 60 16 179/76 96 Room Air 62 173/82 70 201/85 11/26/17 07:01 62 11/26/17 07:00 96 Room Air 11/26/17 06:49 36.8 63 17 208/88 96 Room Air Physical Exam Vital signs reviewed. General: Well-appearing elderly female, in no significant distress. HEENT: No scleral icterus, PERRLA, neck supple. Atraumatic. Cardiovascular: Regular rate and rhythm, no extra sounds. Pulmonary: Clear to auscultation bilaterally, normal work of breathing. Abdomen: Soft, nontender, nondistended, positive bowel sounds. Musculoskeletal: Atraumatic, no peripheral edema. Neurologic: Patient awake alert and oriented x 3, full strength in all 4 extremities. Cranial nerves 2 through 12 grossly intact. Skin: Warm, dry, no rash Medical Decision & Procedures ER Provider Diagnostic Interpretation: Radiology results as stated below per my review and radiologist interpretation: CHEST ONE VIEW PORTABLE HISTORY: dizzy COMPARISON: Chest 01/29/2017. FINDINGS: The heart is mildly enlarged. The lungs are clear. No pleural effusions. No pneumothorax. No fractures within the visualized osseous structures. Mild bibasilar interstitial thickening which is likely chronic. IMPRESSION: Mild cardiomegaly, unchanged. Electronically signed by: Ivan Villegas M.D. 11/26/2017 7:34 AM Dictated Date/Time: 11/26/2017 7:32 AM Laboratory Results 11/26/17 07:40 Red Blood Count 4.71, Mean Corpuscular Volume 91.1, Mean Corpuscular Hemoglobin 30.1, Mean Corpuscular Hemoglobin Concent 33.1, Mean Platelet Volume 9.2, Neutrophils (%) (Auto) 56.7, Lymphocytes (%) (Auto) 29.3, Monocytes (%) (Auto) 8.7, Eosinophils (%) (Auto) 4.7, Basophils (%) (Auto) 0.4, Neutrophils # (Auto) 2.75, Lymphocytes # (Auto) 1.42, Monocytes # (Auto) 0.42, Eosinophils # (Auto) 0.23, Basophils # (Auto) 0.02 11/26/17 07:40 Test 11/26/17 07:35 11/26/17 07:40 Urine Color YELLOW Urine Appearance CLEAR (CLEAR) Urine pH 5.5 (4.5-7.5) Urine Specific [place] 1.012 (1.000-1.030) Urine Protein NEG (NEG) Urine Glucose (UA) NEG (NEG) Urine Ketones NEG (NEG) Urine Occult Blood TRACE (NEG) Urine Nitrite NEG (NEG) Urine Bilirubin NEG (NEG) Urine Urobilinogen NEG (NEG) Urine Leukocyte Esterase NEG (NEG) Urine WBC (Auto) 1-5 /hpf (0-5) Urine RBC (Auto) 0-4 /hpf (0-4) Urine Hyaline Casts (Auto) 0 /lpf (0-5) Urine Epithelial Cells (Auto) 10-20 /lpf (0-5) Urine Bacteria (Auto) NEG (NEG) White Blood Count 4.85 K/uL (4.8-10.8) Red Blood Count 4.71 M/uL (4.2-5.4) Hemoglobin 14.2 g/dL (12.0-16.0) Hematocrit 42.9 % (37-47) Mean Corpuscular Volume 91.1 fL (80-100) Mean Corpuscular Hemoglobin 30.1 pg (25-34) Mean Corpuscular Hemoglobin Concent 33.1 g/dl (32-36) Platelet Count 153 K/uL (130-400) Mean Platelet Volume 9.2 fL (7.4-10.4) Neutrophils (%) (Auto) 56.7 % Lymphocytes (%) (Auto) 29.3 % Monocytes (%) (Auto) 8.7 % Eosinophils (%) (Auto) 4.7 % Basophils (%) (Auto) 0.4 % Neutrophils # (Auto) 2.75 K/uL (1.4-6.5) Lymphocytes # (Auto) 1.42 K/uL (1.2-3.4) Monocytes # (Auto) 0.42 K/uL (0.11-0.59) Eosinophils # (Auto) 0.23 K/uL (0-0.5) Basophils # (Auto) 0.02 K/uL (0-0.2) RDW Standard Deviation 46.9 fL (36.4-46.3) RDW Coefficient of Variation 14.0 % (11.5-14.5) Immature Granulocyte % (Auto) 0.2 % Immature Granulocyte # (Auto) 0.01 K/uL (0.00-0.02) Anion Gap 3.0 mmol/L (3-11) Est Creatinine Clear Calc Drug Dose 63.5 ml/min Estimated GFR () 95.8 Estimated GFR (Non- 82.7 BUN/Creatinine Ratio 25.3 (10-20) Calcium Level 8.4 mg/dl (8.5-10.1) Magnesium Level 1.9 mg/dl (1.8-2.4) Total Bilirubin 0.5 mg/dl (0.2-1) Direct Bilirubin 0.2 mg/dl (0-0.2) Aspartate Amino Transf (AST/SGOT) 23 U/L (15-37) Alanine Aminotransferase (ALT/SGPT) 28 U/L (12-78) Alkaline Phosphatase 72 U/L (45-117) Troponin I < 0.015 ng/ml (0-0.045) Total Protein 6.3 gm/dl (6.4-8.2) Albumin 3.4 gm/dl (3.4-5.0) Laboratory results per my review. ECG Per My Interpretation Indication: other (Hx of A-flutter) Rate (beats per minute): 61 Rhythm: normal sinus Findings: other (No PVCs, no ANKITA/STD) ED Course 0715: Past medical records reviewed. The patient was evaluated in room B9. A complete history and physical examination was performed. 09: Upon reevaluation, the patient appeared to have improvement of her symptoms. I discussed findings with her. She verbalized agreement of the treatment plan. The patient was discharged home. Medical Decision Differential diagnosis: Etiologies such as benign positional vertigo, dehydration, hypovolemia, anemia, tumor, infection, hypoglycemia, electrolyte abnormalities, cardiac sources, intracerebral event, toxicologic, neurologic, as well as others were entertained. This patient was evaluated and appeared to be in no significant distress. Patient was feeling much improved at the time of my evaluation. IV access was obtained and laboratory work was drawn. Orthostatic vital signs were obtained and are negative. Patient is noted to be hypertensive however this is likely secondary to lack of her scheduled blood pressure medication. Patient's laboratory work is fairly unrevealing. EKG is negative. Chest x-ray is negative. UA reveals no evidence of infection. Patient was hydrated with normal saline solution during her stay in the ED. I do feel that the patient's dizziness or shaky reaction is likely multifactorial but I do not see any metabolic or infectious derangement. Patient was discharged in care of her son and will follow up with her PCP. She was encouraged to take her medications as prescribed. She will return to the emergency department for worsening of symptoms or any medical concerns. Medication Reconcilliation Current Medication List: was personally reviewed by me Blood Pressure Screening Patient's blood pressure: Elevated blood pressure Impression Primary Impression: Dizziness Scribe Attestation The scribe's documentation has been prepared under my direction and personally reviewed by me in its entirety. I confirm that the note above accurately reflects all work, treatment, procedures, and medical decision making performed by me. Departure Information Dispostion Home / Self-Care Referrals Ariadna Garcia, C.R.N.P. (PCP) Forms HOME CARE DOCUMENTATION FORM, IMPORTANT VISIT INFORMATION Patient Instructions My [facility] Additional Instructions Diagnosis: Dizzy Please drink plenty of clear fluids. Take your medications as prescribed. If symptoms recur or persist, return to the emergency department for reevaluation. Follow-up with your physician within the next week for reevaluation.
[2017-11-26 07:53] LABS: BASO % 0.4 %; BASO ABS # 0.02 K/uL (0-0.2); EOS % 4.7 %; EOS ABS # 0.23 K/uL (0-0.5); HEMATOCRIT 42.9 % (37-47); HEMOGLOBIN 14.2 g/dL (12.0-16.0); IG# 0.01 K/uL (0.00-0.02); LYMPH % 29.3 %; LYMPH ABS # 1.42 K/uL (1.2-3.4); MEAN CELL VOLUME 91.1 fL (80-100); MEAN CORPUSCULAR HEMOGLOBIN 30.1 pg (25-34); MEAN CORPUSCULAR HGB CONC 33.1 g/dl (32-36); MEAN PLATELET VOLUME 9.2 fL (7.4-10.4); MONO % 8.7 %; MONO ABS # 0.42 K/uL (0.11-0.59); NEUT % 56.7 %; NEUT ABS # 2.75 K/uL (1.4-6.5); PLATELET COUNT 153 K/uL (130-400); RED CELL DISTRIBUTION WIDTH SD 46.9 fL (36.4-46.3); WHITE BLOOD COUNT 4.85 K/uL (4.8-10.8)
[2017-11-26] MEDS ORDERED: LISI-461 PO (08:14)
[2017-11-26] MEDS ORDERED: XRL20 PO (08:14)
[2017-11-26 08:15] LABS: ALBUMIN 3.4 gm/dl (3.4-5.0); ALKALINE PHOSPHATASE 72 U/L (45-117); ALT/SGPT 28 U/L (12-78); AST/SGOT 23 U/L (15-37); BLOOD UREA NITROGEN 16 mg/dl (7-18); CALCIUM 8.4 mg/dl (8.5-10.1); CARBON DIOXIDE 32 mmol/L (21-32); CREATININE 0.65 mg/dl (0.60-1.20); GLUCOSE 167 mg/dl (70-99); POTASSIUM 3.8 mmol/L (3.5-5.1); SODIUM 142 mmol/L (136-145); TOTAL PROTEIN 6.3 gm/dl (6.4-8.2)
[2017-11-26 09:15] VITALS: BP 150/79; PULSE 62; O2SAT 97
== END 2017-11-26 09:42 | disposition home or self-care (01) ==
LOC: EDBD 06:49 → C.EDB 06:50
DX: R42 Dizziness and giddiness (principal); E11.9 Type 2 diabetes mellitus without complications; J45.909 Unspecified asthma, uncomplicated; I48.91 Unspecified atrial fibrillation; I10 Essential (primary) hypertension; E78.5 Hyperlipidemia, unspecified; I48.92 Unspecified atrial flutter; Z87.891 Personal history of nicotine dependence; Z80.9 Family history of malignant neoplasm, unspecified; Z79.01 Long term (current) use of anticoagulants; Z79.899 Other long term (current) drug therapy; Z88.8 Allergy status to other drugs, medicaments and biological substances

== ENCOUNTER 2020-06-18 13:14 | Observation (INO) ==
--- NOTE | 2020-06-18 13:52 | Emergency Department Note ---
History of Present Illness General Chief complaint: Back Injury/Pain Stated complaint: PAIN BETWEEN SHOULDER Time Seen by Provider: 06/18/20 13:36 Source: patient Mode of arrival: ambulatory Limitations: no limitations History of Present Illness This patient comes in after an episode of pain between her shoulder blades this occurred about 1:00 she was out taking the laundry down she felt shaky and pain between her shoulder blades last about 1/2-hour she got better. She has no shortness of breath or chest pain during this episode she said she felt shaky all over. Her heart may have been racing. No recent illness or no known exposure to Covid she has chronic cough that is unchanged. No fall or trauma or injury. No blood or melena melena stool no syncope lightheadedness or dizziness. She is asymptomatic at present Home Medications Medication Instructions Recorded Confirmed Type docusate sodium 100 mg capsule 100 mg PO BID cap 05/13/19 06/18/20 History polyethylene glycol 3350 17 17 gm PO DAILY gm 05/13/19 06/18/20 History gram/dose oral powder ammonium lactate 12 % topical cream 1 appln TOP BID #385 gm 08/31/19 06/18/20 Rx furosemide 20 mg tablet 20 mg PO DAILY #90 tab 10/06/19 06/18/20 Rx albuterol sulfate 90 mcg/actuation 2 puffs INHALATION Q6H PRN #8.5 gm 12/13/19 06/18/20 Rx aerosol inhaler nystatin-triamcinolone 100,000 See Rx Instructions TOP BID #30 gm 12/13/19 06/18/20 Rx unit/g-0.1 % topical cream blood sugar diagnostic #100 ea 01/06/20 06/13/20 Rx glimepiride 1 mg tablet 1 mg PO .COMPLEX #30 tab 06/13/20 06/18/20 Rx lisinopril 30 mg tablet 30 mg PO DAILY #30 tab 06/13/20 06/18/20 Rx metformin 500 mg tablet,extended 1,000 mg PO DAILY #60 tab 06/13/20 06/18/20 Rx release 24 hr metoprolol tartrate 50 mg tablet 50 mg PO BID #60 tab 06/13/20 06/18/20 Rx mometasone 1 inh INH HS #1 ea 06/13/20 06/18/20 Rx pravastatin 20 mg tablet 20 mg PO HS #30 tab 06/13/20 06/18/20 Rx rivaroxaban 20 mg tablet 20 mg PO DAILY #30 tab 06/13/20 06/18/20 Rx Allergies Allergy/AdvReac Type Severity Reaction Status Date / Time simvastatin AdvReac Intermediate DIZZINESS Verified 06/18/20 15:03 Past Med/Surg History Medical History Cataract Contusion of left upper extremity History of malignant neoplasm of endometrium Left shoulder strain New onset atrial flutter New onset atrial flutter Paroxysmal A-fib Vaginal bleeding Surgical History H/O: hysterectomy History of cataract surgery Family History Mother Cancer Diabetes Stroke Other Heart disease Social History Smoking Status: Former smoker Hx Alcohol Use: No Hx Substance Use: No Preferred Language: Indonesian Hearing Ability: Normal marital status: Current Living Situation: Alone current occupational status: retired Feels Safe at Home: Yes Seatbelt Use: always Sunscreen Use: No Review of Systems A total of 10 systems reviewed and were otherwise negative Physical Exam Vital Signs Vital Signs - 24 hr 06/18/20 13:33 06/18/20 13:51 06/18/20 14:58 Temperature 36.9 C Temperature Source Oral Pulse Rate 79 Pulse Rate [Apical] 76 Pulse Rhythm Regular Pulse Strength Normal Respiratory Rate 20 18 Respiratory Effort / Characteristics Non-Labored Spontaneous Respiratory Depth Normal Respiratory Pattern Regular Blood Pressure 195/81 H Blood Pressure [Right Arm] 178/95 H Blood Pressure Mean 119 Blood Pressure Mean [Right Arm] 122 Blood Pressure Position Sitting Pulse Oximetry 97 97 Oxygen Delivery Method Room Air Room Air Room Air Sepsis Recent Fever Within 48 Hours No Sepsis New/Unexplained Change in Mental Status N/A Sepsis Action Taken by Nursing No Action Required 06/18/20 16:20 06/18/20 17:05 Temperature Temperature Source Pulse Rate Pulse Rate [Apical] 102 H 81 Pulse Rhythm Pulse Strength Respiratory Rate 18 14 Respiratory Effort / Characteristics Non-Labored Spontaneous Respiratory Depth Normal Respiratory Pattern Blood Pressure Blood Pressure [Right Arm] 213/112 H 185/93 H Blood Pressure Mean Blood Pressure Mean [Right Arm] 145 123 Blood Pressure Position Pulse Oximetry 95 97 Oxygen Delivery Method Room Air Room Air Sepsis Recent Fever Within 48 Hours Sepsis New/Unexplained Change in Mental Status Sepsis Action Taken by Nursing General: Well developed well nourished older female who appears in no acute distress, breathing comfortably on room air. Normal speech HEENT: Normal cephalic atraumatic. Pupils are equal round and reactive to light. Extraocular movements are intact. Oropharynx is pink with moist mucous membranes. No swelling of the mouth lips or tongue. Neck: Supple with a midline trachea. No meningeal signs or stiffness, no JVD or bruits. No Stridor. Chest: Clear to auscultation bilaterally. No wheezes or rhonchi. No increased work of breathing. Heart: Irregular rate and rhythm without murmurs or gallops. Abdomen: Soft nontender, nondistended without rebound guarding or rigidity. Extremities: No cyanosis clubbing. She has trace to 1+ bilateral lower extremity edema that is greater on the right which she says is chronic. No calf tenderness. Spine/Back. Non tender to palpation. No CVA tenderness Skin: Good turgor without rashes. Neurologic exam: Cranial nerves two through 12 are intact. Motor and sensation are intact and symmetrical throughout. Course Administered Medications Discontinued Medications Ioversol (Optiray 320 125ml) 118 ml IV ONCE ONE Stop: 06/18/20 14:54 Last Admin: 06/18/20 14:53 Dose: 118 ml Documented by: [id number] Medical Decision Making Differential Diagnosis Acute coronary syndrome, arrhythmia, aortic pathology, pneumothorax, Covid, electrolyte or metabolic abnormality, infection Medical Records Attestation: I reviewed the patient's medical records. Home Medications Current Medication List: was personally reviewed by tx Laboratory Data Attestation: I reviewed the patient's lab results. Result diagrams: 06/18/20 14:09 06/18/20 14:09 Lab Results 06/18/20 06/18/20 06/18/20 Range/Units 14:09 14: 14:09 WBC 7.43 (4.8-10.8) K/uL RBC 4.72 (4.2-5.4) M/uL Hgb 14.4 (12.0-16.0) g/dL Hct 43.5 (37-47) % MCV 92.2 (80-100) fL MCH 30.5 (25-34) pg MCHC 33.1 (32-36) g/dL RDW Std Deviation 47.3 H (36.4-46.3) fL RDW Coeff of Amando 14.0 (11.5-14.5) % Plt Count 166 (130-400) K/uL MPV 10.0 (7.4-10.4) fL Immature Gran % (Auto) 0.3 % Neut % (Auto) 78.7 % Lymph % (Auto) 10.9 % Sebastian % (Auto) 9.3 % Eos % (Auto) 0.7 % Baso % (Auto) 0.1 % Neut # (Auto) 5.85 (1.4-6.5) K/uL Lymph # (Auto) 0.81 L (1.2-3.4) K/uL Sebastian # (Auto) 0.69 H (0.11-0.59) K/uL Eos # (Auto) 0.05 (0-0.5) K/uL Baso # (Auto) 0.01 (0-0.2) K/uL Immature Gran # (Auto) 0.02 (0.00-0.02) K/uL PT 13.7 H (9.0-12.0) Seconds INR 1.3 H (0.9-1.1) APTT 30.8 (21.0-31.0) Seconds PTT Ratio 1.1 Sodium 144 (136-145) mmol/L Potassium 3.6 (3.5-5.1) mmol/L Chloride 107 (98-107) mmol/L Carbon Dioxide 32 (21-32) mmol/L Anion Gap 5.0 (3-11) BUN 16 (7-18) mg/dl Creatinine 0.68 (0.6-1.2) mg/dl Est Cr Clr Drug Dosing 63.0 ml/min Est GFR ( Amer) 93.1 Est GFR (Non-Af Amer) 80.3 BUN/Creatinine Ratio 23.5 H (10-20) Glucose 175 H (70-99) mg/dl Calcium 9.1 (8.5-10.1) mg/dl Total Bilirubin 0.4 (0.2-1) mg/dl AST 18 (15-37) U/L ALT 27 (12-78) U/L Alkaline Phosphatase 80 (45-117) U/L Troponin I 0.083 H* (0-0.045) ng/ml Total Protein 6.8 (6.4-8.2) gm/dl Albumin 3.5 (3.4-5.0) gm/dl Globulin 3.3 (2.5-4.0) gm/dl Albumin/Globulin Ratio 1.1 (0.9-2) Lipase 55 L (73-393) U/L SARS-CoV-2 Ag (Rapid) (Negative) 06/18/20 Range/Units Unknown WBC (4.8-10.8) K/uL RBC (4.2-5.4) M/uL Hgb (12.0-16.0) g/dL Hct (37-47) % MCV (80-100) fL MCH (25-34) pg MCHC (32-36) g/dL RDW Std Deviation (36.4-46.3) fL RDW Coeff of Amando (11.5-14.5) % Plt Count (130-400) K/uL MPV (7.4-10.4) fL Immature Gran % (Auto) % Neut % (Auto) % Lymph % (Auto) % Sebastian % (Auto) % Eos % (Auto) % Baso % (Auto) % Neut # (Auto) (1.4-6.5) K/uL Lymph # (Auto) (1.2-3.4) K/uL Sebastian # (Auto) (0.11-0.59) K/uL Eos # (Auto) (0-0.5) K/uL Baso # (Auto) (0-0.2) K/uL Immature Gran # (Auto) (0.00-0.02) K/uL PT (9.0-12.0) Seconds INR (0.9-1.1) APTT (21.0-31.0) Seconds PTT Ratio Sodium (136-145) mmol/L Potassium (3.5-5.1) mmol/L Chloride (98-107) mmol/L Carbon Dioxide (21-32) mmol/L Anion Gap (3-11) BUN (7-18) mg/dl Creatinine (0.6-1.2) mg/dl Est Cr Clr Drug Dosing ml/min Est GFR ( Amer) Est GFR (Non-Af Amer) BUN/Creatinine Ratio (10-20) Glucose (70-99) mg/dl Calcium (8.5-10.1) mg/dl Total Bilirubin (0.2-1) mg/dl AST (15-37) U/L ALT (12-78) U/L Alkaline Phosphatase (45-117) U/L Troponin I (0-0.045) ng/ml Total Protein (6.4-8.2) gm/dl Albumin (3.4-5.0) gm/dl Globulin (2.5-4.0) gm/dl Albumin/Globulin Ratio (0.9-2) Lipase (73-393) U/L SARS-CoV-2 Ag (Rapid) Negative (Negative) Imaging Data Attestation: I personally reviewed and interpreted this imaging study as follows: Radiologist's Impression: HEAD CT NONCONTRAST CT DOSE: HISTORY: headache TECHNIQUE: Multiaxial CT images of the head were performed without the use of intravenous contrast. Automated exposure control was utilized for this study. A dose lowering technique was utilized adhering to the principles of ALARA. Comparison: None. Findings: The paranasal sinuses and mastoid air cells are clear. The calvarium and skull base are intact. There is no mass, hematoma, midline shift, acute infarct. White matter hypodensity is nonspecific but suggestive of microvascular ischemic change. The ventricles and sulci demonstrate mild age-related involutional changes. Impression: No acute intracranial abnormality. Atrophy and microvascular ischemic changes. CHEST CTA for AORTIC DISSECTION CT DOSE: 1314.93 mGy.cm HISTORY: episode of pain between shoulder blades TECHNIQUE: Multiaxial CT images of the chest were performed both before and after the intravenous administration of contrast to evaluate the aorta. Maximal intensity projection images were also obtained. A dose lowering technique was utilized adhering to the principles of ALARA. COMPARISON STUDY: None. FINDINGS: Noncontrast imaging shows no evidence for an intramural hematoma within the thoracic aorta. There is mild to moderate calcified plaque within the descending thoracic aorta. The ascending thoracic aorta measures up to 3.9 cm in diameter. No evidence for an aortic dissection. No filling defects within the pulmonary arteries to suggest pulmonary embolus. The heart is borderline enlarged. Mitral annulus calcifications are noted. Subcentimeter mediastinal lymph nodes do not meet CT criteria for pathologic involvement. No hilar lymphadenopathy. Normal esophagus. No pleural or pericardial effusions. Limited views of the upper abdomen demonstrate a few subcentimeter hypodense lesions within the liver. These are technically too small to characterize but likely benign. The spleen and adrenal glands are unremarkable. No fractures within the visualized osseous structures. No pneumothorax. No focal lung consolidations to suggest pneumonia. There are approximately 10 scattered subcentimeter indeterminate pulmonary nodules with the largest within the right upper lobe on image 101 measuring 5 mm. IMPRESSION: 1. No evidence for an aortic dissection. 2. Approximately 10 scattered subcentimeter indeterminate pulmonary nodules with the largest measuring 5 mm. Please refer to the chart below for recommended follow-up. Please refer to below summary of Fleischner criteria recommendations for follow- up of incidental CT nodules (Harrison Bundy, Guidelines for management of small pulmonary nodules detected on CT scans: A statement from the Fleischner Society, Radiology 237: [phone].) SOLID NODULES Solitary nodule size: <6 mm * Low risk patients: no follow-up needed * high risk patients: optional CT at 12 months Solitary nodule size: 6-8 mm * Low risk patients: follow-up at 6-12 months, then consider further follow-up at 18-24 months * high risk patients: initial follow-up CT at 6-12 months and then at 18-24 months if no change Solitary nodule size: >8 mm * either low or high risk patients - consider follow-up CT at 3 months, and/or CT-PET, and/or biopsy Multiple nodules size: <6 mm * Low risk patients: no routine follow-up * high risk patients: optional CT at 12 months Multiple nodules size: 6-8 mm * Low risk patients: follow-up at 3-6 months, then consider further follow-up at 18-24 months * high risk patients: follow-up at 3-6 months, then at 18-24 months if no change Multiple nodules size: >8 mm * Low risk patients: follow-up at 3-6 months, then consider further follow-up at 18-24 months * high risk patients: follow-up at 3-6 months, then at 18-24 months if no change Note: newly detected indeterminate nodule in persons 35 years of age or older. * Low risk patients: minimal or absent history of smoking and/or other known risk factors * high risk patients: history of smoking or of other known risk factors (e.g. first degree relative with lung cancer, or exposure to asbestos, radon, uranium) * if a nodule up to 8 mm is partly solid or is ground glass further follow-up is required after 24 months to exclude possible slow growing adenocarcinoma (LEXX) SUBSOLID NODULES Solitary pure ground-glass nodule * nodule size <6 mm - no CT follow-up required * nodule size >=6 mm - follow-up CT at 6-12 months, then every 2 years until 5 years Solitary part-solid nodule * nodule size <6 mm - no CT follow-up required * nodule size >=6 mm - follow-up CT at 3-6 months. If unchanged, and solid component remains <6 mm, then annual follow-up for 5 years Multiple subsolid nodules * nodule size <6 mm - follow-up CT at 3-6 months, consider further follow-up at 2 and 4 years if stable * nodule size >=6 mm - follow-up CT at 3-6 months, subsequent management based on the most suspicious nodule(s) ECG Data Attestation: I personally reviewed and interpreted this ECG as follows: Indication: + back/shoulder pain Rate (beats per minute): 83 Rhythm: + atrial fibrillation ECG Intervals/blocks: + Normal QRS and + Normal QT ECG [place]: + Normal ECG ST segments: + Normal ST segments ECG Findings: + PACs; no PVCs Comparison ECG Date: from (11/26/2017) Change: the following changes noted (A fib has replced normal sinus ryth) MDM Narrative This patient comes in as described above. She had episode of pain in her shoulder blades and felt shaky she looks well at present. On the monitor, her heart is irregular and I think is in A. fib she does have a history of A. fib is on Xarelto. IV access was established chest x-ray EKG and a full cardiac work- up was obtained. She was reassessed frequently. She has remained stable and without chest or back pain. EKG shows A. fib without ischemic changes troponin is mildly elevated 0.08. Chest x-ray shows no acute congestive heart failure, pneumonia, or pneumothorax. She has no significant electrolyte or metabolic abnormalities. She said her head felt slightly funny so I did also do a CAT scan of her head while I was doing a CTA of her chest both of these were unremarkable for any acute disease processes. Her blood pressure is moderately elevated however I think this is more likely situational at this point. I have consulted Dr. Martinez for admission/observation on this patient. I did order preadmission Covid testing which was negative on the rapid antigen. The patient has no Covid symptoms. Continuous cardiac monitoring: An order was placed in the EMR for continuous cardiac monitoring the patient was noted to be in A. fib with a rate controlled rate of 83 Impression & Plan Back pain, Elevated troponin, Anticoagulant long-term use, Atrial fibrillation, COVID-19 ruled out by laboratory testing Discharge Plan Visit Data Chief Complaint: Back Injury/Pain Stated Complaint: PAIN BETWEEN SHOULDER ED Provider: Red Dutta Discharge Problem: Back pain, Elevated troponin, Anticoagulant long-term use, Atrial fibrillation, COVID-19 ruled out by laboratory testing Forms Stand Alone Forms: My [facility] Prescriptions Prescriptions: No Action ammonium lactate 12 % cream 1 appln TOP BID Qty: 385 RF: 3 furosemide 20 mg tablet 20 mg PO DAILY Qty: 90 RF: 1 (DME) OneTouch Ultra Blue Test Strip Strip See Dose Instructions .ROUTE .MEDSUPPLY Qty: 100 RF: 5 lisinopril 30 mg tablet 30 mg PO DAILY Qty: 30 RF: 5 glimepiride 1 mg tablet 1 mg PO .COMPLEX Qty: 30 RF: 5 metformin 500 mg tablet extended release 24 hr 1,000 mg PO DAILY Qty: 60 RF: 5 metoprolol tartrate 50 mg tablet 50 mg PO BID Qty: 60 RF: 5 Asmanex Twisthaler 220 mcg/ actuation (30) aerosol powdr breath activated 1 inh INH HS Qty: 1 RF: 5 pravastatin 20 mg tablet 20 mg PO HS Qty: 30 RF: 5 rivaroxaban 20 mg tablet 20 mg PO DAILY Qty: 30 RF: 11 docusate sodium 100 mg capsule 100 mg PO BID RF: 0 polyethylene glycol 3350 17 gram/dose powder 17 gm PO DAILY RF: 0 albuterol sulfate 90 mcg/actuation HFA aerosol inhaler 2 puffs inhalation Q6H PRN (Reason: shortness of breath or wheezing) Qty: 8.5 RF: 5 nystatin-triamcinolone 100,000-0.1 unit/g-% cream See Rx Instructions TOP BID Qty: 30 RF: 2 Discharge Problem: Back pain Qualifiers: Back pain location: thoracic back pain Chronicity: acute Back pain laterality: midline Qualified Code(s): M54.6 - Pain in thoracic spine Atrial fibrillation Qualifiers: Atrial fibrillation type: paroxysmal Qualified Code(s): I48.0 - Paroxysmal atrial fibrillation
--- NOTE | 2020-06-18 14:17 | XRay Report ---
XR chest 1V portable HISTORY: Atypical Chest Pain COMPARISON: Chest 11/26/2017. FINDINGS: The heart remains enlarged. No pleural effusions. No pneumothorax. The lungs are clear. No evidence for pulmonary edema. IMPRESSION: Stable mild cardiomegaly ACT 112: Negative or not required by law. Electronically signed by: Ivan Villegas M.D. 06/18/2020 2:16 PM
[2020-06-18 14:25] LABS: Basophils # (auto) 0.01 K/uL (0-0.2); Basophils % (auto) 0.1 %; Eosinophils # (auto) 0.05 K/uL (0-0.5); Eosinophils % (auto) 0.7 %; Hematocrit (blood only) 43.5 % (37-47); Hemoglobin 14.4 g/dL (12.0-16.0); Immature Granulocytes # (auto) 0.02 K/uL (0.00-0.02); Immature Granulocytes % (auto) 0.3 %; Lymphocytes # (auto) 0.81 K/uL (1.2-3.4); Lymphocytes % (auto) 10.9 %; Mean Corpuscular Hemoglobin 30.5 pg (25-34); Mean Corpuscular Hgb Conc 33.1 g/dL (32-36); Mean Corpuscular Volume 92.2 fL (80-100); Monocytes # (auto) 0.69 K/uL (0.11-0.59); Monocytes % (auto) 9.3 %; Neutrophils # (auto) 5.85 K/uL (1.4-6.5); Neutrophils % (auto) 78.7 %; Platelet Count 166 K/uL (130-400); RDW Standard Deviation 47.3 fL (36.4-46.3); Red Blood Count 4.72 M/uL (4.2-5.4); White Blood Count 7.43 K/uL (4.8-10.8)
[2020-06-18 14:43] LABS: INR 1.3 (0.9-1.1); Partial Thromboplastin Ratio 1.1; Partial Thromboplastin Time 30.8 Seconds (21.0-31.0); Prothrombin Time 13.7 Seconds (9.0-12.0)
[2020-06-18 14:44] LABS: Albumin Level 3.5 gm/dl (3.4-5.0); BUN Creatinine Ratio 23.5 (10-20); Calcium 9.1 mg/dl (8.5-10.1); Est GFR (African American) 93.1; Est GFR (Non-African American) 80.3; Potassium 3.6 mmol/L (3.5-5.1)
[2020-06-18] MEDS ORDERED: OPTIRAY 320 125ml IV ONE (14:53)
[2020-06-18 15:01] LABS: Albumin Globulin Ratio 1.1 (0.9-2); Bilirubin,Total 0.4 mg/dl (0.2-1); Globulin 3.3 gm/dl (2.5-4.0); Total Protein 6.8 gm/dl (6.4-8.2); Troponin I 0.083 ng/ml (0-0.045)
--- NOTE | 2020-06-18 16:09 | CT Scan Report ---
HEAD CT NONCONTRAST CT DOSE: HISTORY: headache TECHNIQUE: Multiaxial CT images of the head were performed without the use of intravenous contrast. A utomated exposure control was utilized for this study. A dose lowering technique was utilized adheri ng to the principles of ALARA. Comparison: None. Findings: The paranasal sinuses and mastoid air cells are clear. The calvarium and skull base are int act. There is no mass, hematoma, midline shift, acute infarct. White matter hypodensity is nonspecifi c but suggestive of microvascular ischemic change. The ventricles and sulci demonstrate mild age-rela teresa involutional changes. Impression: No acute intracranial abnormality. Atrophy and microvascular ischemic changes. ACT 112: Negative or not required by law. Electronically signed by: Ivan Villegas M.D. 06/18/2020 4:07 PM
--- NOTE | 2020-06-18 16:16 | CT Scan Report ---
CHEST CTA for AORTIC DISSECTION CT DOSE: 1314.93 mGy.cm HISTORY: episode of pain between shoulder blades TECHNIQUE: Multiaxial CT images of the chest were performed both before and after the intravenous adm inistration of contrast to evaluate the aorta. Maximal intensity projection images were also obtained . A dose lowering technique was utilized adhering to the principles of ALARA. COMPARISON STUDY: None. FINDINGS: Noncontrast imaging shows no evidence for an intramural hematoma within the thoracic aorta. There is mild to moderate calcified plaque within the descending thoracic aorta. The ascending thora cic aorta measures up to 3.9 cm in diameter. No evidence for an aortic dissection. No filling defects within the pulmonary arteries to suggest pulmonary embolus. The heart is borderline enlarged. Mitral annulus calcifications are noted. Subcentimeter mediastinal lymph nodes do not meet CT criteria for pathologic involvement. No hilar lymphadenopathy. Normal esophagus. No pleural or pericardial effusio ns. Limited views of the upper abdomen demonstrate a few subcentimeter hypodense lesions within the l iver. These are technically too small to characterize but likely benign. The spleen and adrenal gland s are unremarkable. No fractures within the visualized osseous structures. No pneumothorax. No focal lung consolidations to suggest pneumonia. There are approximately 10 scattered subcentimeter indeterm inate pulmonary nodules with the largest within the right upper lobe on image 101 measuring 5 mm. IMPRESSION: 1. No evidence for an aortic dissection. 2. Approximately 10 scattered subcentimeter indeterminate pulmonary nodules with the largest measurin g 5 mm. Please refer to the chart below for recommended follow-up. Please refer to below summary of Fleischner criteria recommendations for follow-up of incidental CT n odules (Harrison Bundy, Guidelines for management of small pulmonary nodules detected on CT scans: A sta tement from the Fleischner Society, Radiology 237: [phone].) SOLID NODULES Solitary nodule size: <6 mm * Low risk patients: no follow-up needed * high risk patients: optional CT at 12 months Solitary nodule size: 6-8 mm * Low risk patients: follow-up at 6-12 months, then consider further follow-up at 18-24 months * high risk patients: initial follow-up CT at 6-12 months and then at 18-24 months if no change Solitary nodule size: >8 mm * either low or high risk patients - consider follow-up CT at 3 months, and/or CT-PET, and/or biopsy Multiple nodules size: <6 mm * Low risk patients: no routine follow-up * high risk patients: optional CT at 12 months Multiple nodules size: 6-8 mm * Low risk patients: follow-up at 3-6 months, then consider further follow-up at 18-24 months * high risk patients: follow-up at 3-6 months, then at 18-24 months if no change Multiple nodules size: >8 mm * Low risk patients: follow-up at 3-6 months, then consider further follow-up at 18-24 months * high risk patients: follow-up at 3-6 months, then at 18-24 months if no change Note: newly detected indeterminate nodule in persons 35 years of age or older. * Low risk patients: minimal or absent history of smoking and/or other known risk factors * high risk patients: history of smoking or of other known risk factors (e.g. first degree relative with lung cancer, or exposure to asbestos, radon, uranium) * if a nodule up to 8 mm is partly solid or is ground glass further follow-up is required after 24 m onths to exclude possible slow growing adenocarcinoma (LEXX) SUBSOLID NODULES Solitary pure ground-glass nodule * nodule size <6 mm - no CT follow-up required * nodule size >=6 mm - follow-up CT at 6-12 months, then every 2 years until 5 years Solitary part-solid nodule * nodule size <6 mm - no CT follow-up required * nodule size >=6 mm - follow-up CT at 3-6 months. If unchanged, and solid component remains <6 mm, then annual follow-up for 5 years Multiple subsolid nodules * nodule size <6 mm - follow-up CT at 3-6 months, consider further follow-up at 2 and 4 years if sta ble * nodule size >=6 mm - follow-up CT at 3-6 months, subsequent management based on the most suspiciou s nodule(s) ACT 112: Negative or not required by law. Electronically signed by: Ivan Villegas M.D. 06/18/2020 4:15 PM
--- NOTE | 2020-06-18 17:31 | History & Physical Report ---
Date of Service June 18, 2020 Assessment & Plan (1) Back pain: Concern for ACS given severity, elevated troponin and BP although most likely musculoskeletal. Dissection ruled out on imaging. Serial troponins. If downtrending can likely be discharged home tomorrow. No need for stress testing. ASA 324mg PO chew now. Continue Xarelto for anticoagulation. HbA1C 6.8 [06/13/2020] LDL @ goal 64 [12/13/2019] (2) Elevated troponin: Suspect demand-ischemia in setting of hypertensive urgency. (3) Atrial fibrillation: Preior history of flutter/fibrillation Continue Xarelto for anticogulation Continue her usual rate controlling medication with metoprolol 50mg PO BID (4) Diabetes mellitus, controlled: Continue glimepiride with Novolog sliding scale for correction only Hold metformin due to contrast given with CT (5) Hypertension: Hypertensive urgency Continue lisinopril, metoprolol, furosemide home doses with hydralazine IV PRN for sBP > 180. Admission and Anticipated Discharge Date Admission Date: 06/18/2020 Anticipated date of discharge: 06/19/20 History of Present Illness Chief Complaint: Back pain, elevated blood pressure. elevated troponin Primary Care Provider: PAYTON Choi Halina Angela is an 84 year old female who presents to the ER with acute onset back pain. This started at 1pm, never had anything similar in the past, Severity 10/10 between her bilateral shoulders, lasted 30-45 minutes, while she was lifting towels down and on exertion going up the stairs. Associated with shaking of her arms bilaterally. No associated nausea, diaphoresis or shortness of breath. She did not fall or sustain any injuries. She has no history of heart attacks or strokes in the past. In the ER her troponin was minimally positive at 0.083 and BP up to 213/112. Her EKG showed atrial flutter with a variable block which is not new. She was referred to medicine for admission and ongoing management of back pain rule out MA. Allergies Allergy/AdvReac Type Severity Reaction Status Date / Time simvastatin AdvReac Intermediate DIZZINESS Verified 06/18/20 15:03 Home Medications Medication Instructions Recorded Confirmed Type docusate sodium 100 mg capsule 100 mg PO BID cap 05/13/19 06/18/20 History polyethylene glycol 3350 17 17 gm PO DAILY gm 05/13/19 06/18/20 History gram/dose oral powder ammonium lactate 12 % topical cream 1 appln TOP BID #385 gm 08/31/19 06/18/20 Rx furosemide 20 mg tablet 20 mg PO DAILY #90 tab 10/06/19 06/18/20 Rx albuterol sulfate 90 mcg/actuation 2 puffs INHALATION Q6H PRN #8.5 gm 12/13/19 06/18/20 Rx aerosol inhaler nystatin-triamcinolone 100,000 See Rx Instructions TOP BID #30 gm 12/13/19 06/18/20 Rx unit/g-0.1 % topical cream blood sugar diagnostic #100 ea 01/06/20 06/13/20 Rx glimepiride 1 mg tablet 1 mg PO .COMPLEX #30 tab 06/13/20 06/18/20 Rx lisinopril 30 mg tablet 30 mg PO DAILY #30 tab 06/13/20 06/18/20 Rx metformin 500 mg tablet,extended 1,000 mg PO DAILY #60 tab 06/13/20 06/18/20 Rx release 24 hr metoprolol tartrate 50 mg tablet 50 mg PO BID #60 tab 06/13/20 06/18/20 Rx mometasone 1 inh INH HS #1 ea 06/13/20 06/18/20 Rx pravastatin 20 mg tablet 20 mg PO HS #30 tab 06/13/20 06/18/20 Rx rivaroxaban 20 mg tablet 20 mg PO DAILY #30 tab 06/13/20 06/18/20 Rx Past Med/Surg History Medical History Cataract Contusion of left upper extremity History of malignant neoplasm of endometrium Left shoulder strain New onset atrial flutter New onset atrial flutter Paroxysmal A-fib Vaginal bleeding Surgical History H/O: hysterectomy History of cataract surgery Family History Mother Cancer Diabetes Stroke Other Heart disease Social History Smoking Status: Former smoker Hx Alcohol Use: No Hx Substance Use: No Preferred Language: Urugu[place] Communication Ability: Effective Hearing Ability: Normal Hay Sorter Required: No Beliefs That Will Affect Care: None marital status: Current Living Situation: Alone current occupational status: retired Other Information That Helps Us Care for You: No Feels Safe at Home: Yes Seatbelt Use: always Sunscreen Use: No Assistive Devices: Cane Review of Systems Review of Systems: All systems reviewed & are unremarkable except as noted in HPI & below Physical Exam Constitutional: well developed and well nourished; no acute distress Eyes: + anicteric sclerae; normal pupil size ENMT: external ear and nose normal, oropharynx normal Neck: trachea midline, no thyromegaly Respiratory: normal respiratory effort, lungs clear to auscultation Cardiovascular: Rate/Rhythm: + tachycardic and + irregularly irregular Heart Sounds: no murmur Vessels: no JVD Extremities: normal capillary refill; no calf tenderness and no pedal edema Gastrointestinal (Abdomen): normal bowel sounds, soft, nontender, no hepatosplenomegaly Musculoskeletal: no cyanosis or clubbing, extremities motor strength 5/5 Spine: + paraspinal tenderness (Pain b/l on palpation over lower trapezius/infraspinatus); normal cervical ROM Skin: no rashes, warm and dry Neurologic: moves all extremities and awake; no focal motor deficits and not confused Psychiatric: A+Ox3, euthymic affect Results & Data Results & Data ([facility]) Vital Signs (Past 12 Hours) Vital Signs Temp Pulse Pulse Resp BP BP Pulse Ox 06/18/20 17:05 81 14 185/93 H 97 06/18/20 16:20 102 H 18 213/112 H 95 06/18/20 14:58 76 18 178/95 H 97 06/18/20 13:33 36.9 C 79 20 195/81 H [address] NONCONTRAST Impression: No acute intracranial abnormality. Atrophy and microvascular ischemic changes. CHEST CTA for AORTIC DISSECTION IMPRESSION: 1. No evidence for an aortic dissection. 2. Approximately 10 scattered subcentimeter indeterminate pulmonary nodules with the largest measuring 5 mm. Please refer to the chart below for recommended follow-up. XR chest 1V portable IMPRESSION: Stable mild cardiomegaly Medications Administered ER Medications given: None ECG Indication: back/shoulder pain Rate (beats per minute): 83 Rhythm: atrial flutter Findings: no acute ischemic change Comparison ECG Date: from (November 27, 2019) Change: no significant change Code Status & VTE Plan Code Status Full VTE Prophylaxis Plan VTE Prophylaxis will be ordered: Yes PG Care Time/CCT Total # of Minutes Spent Total Time Spent with Patient: Total time spent is greater than 50% in coordination of care (as documented) at patient's floor/unit and/or counseling patient: Coding Level of Care Code 90557 OBS Care - Level 3 Diagnoses Back pain M54.6 Back pain laterality: midline Back pain location: thoracic back pain Chronicity: acute Elevated troponin R77.8 Atrial fibrillation I48.0 Atrial fibrillation type: paroxysmal Diabetes mellitus, controlled E11.9 Hypertension I10 (1) Back pain Back pain laterality: midline Back pain location: thoracic back pain Chronicity: acute Qualified Code(s): M54.6 - Pain in thoracic spine (2) Atrial fibrillation Atrial fibrillation type: paroxysmal Qualified Code(s): I48.0 - Paroxysmal atrial fibrillation
[2020-06-18] MEDS ORDERED: ASPIRIN 81 MG CHEW PO STA (17:42)
[2020-06-18] MEDS ORDERED: GLIMEPIRIDE 2 MG TAB PO STA (17:45)
[2020-06-18] MEDS ORDERED: ONDANSETRON INJ 2 MG/ML 2 ML VIAL IV PRN (21:04)
[2020-06-18] MEDS ORDERED: ACETAMINOPHEN 325 MG TAB PO PRN (21:04)
[2020-06-18] MEDS: FLUTICASONE FUROATE 100MCG 14 PUFFS/INHALER INH SCH (22:02)
[2020-06-18] MEDS: NYSTATIN/TRIAMCIN CR 15 GM TUBE EXT SCH (22:03)
[2020-06-18] MEDS: PRAVASTATIN SOD 20 MG TAB PO SCH (22:03)
[2020-06-18] MEDS: METOPROLOL TARTRATE 50 MG TAB PO SCH (22:04)
[2020-06-18] MEDS ORDERED: hydrALAZINE HCL 20 MG/ML VIAL IV PRN (22:15)
[2020-06-18] MEDS ORDERED: GLUCAGON FOR INJ 1 MG VIAL SQ PRN (22:19)
[2020-06-18] MEDS ORDERED: CARBOHYDRATES FOR HYPOGLYCEMIA PO PRN (22:19)
[2020-06-18] MEDS ORDERED: GLUCOSE 10 TABS/TUBE PO PRN (22:19)
[2020-06-18] MEDS ORDERED: DEXTROSE 50% 50 ML SYRINGE IV PRN (22:19)
[2020-06-18] MEDS ORDERED: GLUCOSE 40% GEL 15 GM TUBE PO PRN (22:19)
[2020-06-19] MEDS: NITROGLYCERIN 2% OINTMENT 30GM TUBE EXT SCH ×3 (00:22→11:36)
[2020-06-19 06:50] LABS: Basophils # (auto) 0.01 K/uL (0-0.2); Basophils % (auto) 0.2 %; Eosinophils # (auto) 0.17 K/uL (0-0.5); Eosinophils % (auto) 3.1 %; Hematocrit (blood only) 40.6 % (37-47); Hemoglobin 12.9 g/dL (12.0-16.0); Immature Granulocytes # (auto) 0.01 K/uL (0.00-0.02); Immature Granulocytes % (auto) 0.2 %; Lymphocytes # (auto) 1.66 K/uL (1.2-3.4); Lymphocytes % (auto) 30.5 %; Mean Corpuscular Hemoglobin 29.5 pg (25-34); Mean Corpuscular Hgb Conc 31.8 g/dL (32-36); Mean Corpuscular Volume 92.9 fL (80-100); Monocytes # (auto) 0.68 K/uL (0.11-0.59); Monocytes % (auto) 12.5 %; Neutrophils # (auto) 2.92 K/uL (1.4-6.5); Neutrophils % (auto) 53.5 %; Platelet Count 165 K/uL (130-400); RDW Coefficient of Variation 14.2 % (11.5-14.5); RDW Standard Deviation 48.1 fL (36.4-46.3); Red Blood Count 4.37 M/uL (4.2-5.4); White Blood Count 5.45 K/uL (4.8-10.8)
--- NOTE | 2020-06-19 06:51 | Electrocardiogram Report ---
Test Reason : Blood Pressure : / mmHG Vent. Rate : 083 BPM Atrial Rate : 105 BPM P-R Int : 000 ms QRS Dur : 086 ms QT Int : 376 ms P-R-T Axes : 000 -15 085 degrees QTc Int : 441 ms Poor data quality, interpretation may be adversely affected Atrial flutter with variable A-V block Minimal voltage criteria for LVH, may be normal variant Septal infarct , age undetermined Abnormal ECG When compared with ECG of 26-NOV-2017 07:03, HR has increased Confirmed by Luiz Lowe ([id number]) on 06/19/2020 6:50:33 AM Referred By: REFERRED SELF Confirmed By:uLiz Lowe
[2020-06-19 07:19] LABS: BUN Creatinine Ratio 28.7 (10-20); Calcium 9.1 mg/dl (8.5-10.1); Creatinine Clr Calc Pharmacy 75.1 ml/min; Est GFR (African American) 98.7; Est GFR (Non-African American) 85.1; Potassium 3.5 mmol/L (3.5-5.1)
[2020-06-19 07:30] LABS: Troponin I 0.059 ng/ml (0-0.045)
[2020-06-19] MEDS: METOPROLOL TARTRATE 50 MG TAB PO SCH (08:46)
[2020-06-19] MEDS: FUROSEMIDE 20 MG TAB PO SCH (08:46)
[2020-06-19] MEDS: RIVAROXABAN 20 MG TAB PO SCH (08:47)
[2020-06-19] MEDS: GLIMEPIRIDE 2 MG TAB PO SCH (08:47)
[2020-06-19] MEDS: NYSTATIN/TRIAMCIN CR 15 GM TUBE EXT SCH ×2 (08:48→21:21)
[2020-06-19] MEDS: AMMONIUM LACTATE 12% LOTION 225 GM BTL EXT SCH ×2 (08:48→21:22)
[2020-06-19] MEDS ORDERED: lisinopril 10 MG TAB PO SCH (09:00)
[2020-06-19] MEDS: INSULIN ASPART 100 UNITS/ML 3 ML PEN SC SCH ×4 (09:13→21:23)
[2020-06-19] MEDS ORDERED: lisinopril 10 MG TAB PO ONE (09:15)
--- NOTE | 2020-06-19 13:49 | Hospitalist Progress Note ---
Date of Service June 19, 2020 Assessment & Plan (1) Back pain: Presented with severe upper back pain between shoulder blades Concern for ACS given severity, elevated troponin and elevated BP although most likely musculoskeletal. Dissection ruled out on imaging. Could be secondary to hypertensive urgency Serial troponins peaked at 0.156 and back down again. Cardiology consultation pending to see if thinks needs Nuc Stress vs cath? Needs improved BP control-see below -received ASA 324mg PO x 1--> may need to continue on ASA 81mg-await Cardio rec -check ECHO for WMA, EF -dc NTG paste due to headache -continue pravastatin, metoprolol Continue Xarelto for anticoagulation. HbA1C 6.8 [06/13/2020] LDL @ goal 64 [12/13/2019] (2) Elevated troponin: Suspect demand-ischemia in setting of hypertensive urgency as above ECHO (3) Hypertension: Hypertensive urgency Continue lisinopril and increase to 40mg once daily -continue metoprolol but decrease to 25mg bid due to bradycardia into the 30s -continue furosemide home dose - hydralazine IV PRN for sBP > 180. Consider adding on amlodipine 5mg po daily if BPs remain uncontrolled with increased lisinopril dose (4) Atrial fibrillation: Prior history of flutter/fibrillation rates jon into 30s with sleep, 50-60s daytime Continue Xarelto for anticoagulation lower metoprolol to 25mg PO BID monitor on tele (5) Diabetes mellitus, controlled: Continue glimepiride with Novolog sliding scale for correction only Hold metformin due to contrast given with CT (6) DVT prophylaxis: Xarelto Dispo-continued stay for BP control and bradycardia Admission and Anticipated Discharge Date Admission Date: June 18, 2020 Subjective Pt feeling well today. No further upper back pain. Never had chest pain. No SOB, does have amild headache which is resolved with removal of nitropaste. Is eating and drinking, no N/V. Tele with atrial flutter, rates in the 30s overnight to the upper 50s-60 today Review of Systems Review of Systems: All systems reviewed & are unremarkable except as noted in HPI & below Physical Exam Constitutional: WD/WN, vitals as above Eyes: + anicteric sclerae Neck: trachea midline, no thyromegaly Respiratory: normal respiratory effort, lungs clear to auscultation Cardiovascular: Rate/Rhythm: regular rate and + irregularly irregular Heart Sounds: no murmur Extremities: no edema Chest (Breasts): Chest: normal inspection of chest Gastrointestinal (Abdomen): normal bowel sounds, soft, nontender, no hepatosplenomegaly Musculoskeletal: Extremities: extremities normal to inspection; no cyanosis and no clubbing Skin: no rashes, warm and dry Neurologic: moves all extremities and awake; no focal motor deficits Psychiatric: Orientation: alert, oriented to person, oriented to place and cooperative Lymphatic: no lymphedema Results & Data Results & Data ([facility]) Vital Signs (Past 12 Hours) Vital Signs Temp Pulse Pulse Resp BP BP Pulse Ox 06/19/20 11:40 37.0 C 50 L 18 158/71 H 96 06/19/20 10:03 152/75 H 06/19/20 07:53 36.4 C L 78 20 168/82 H 96 06/19/20 07:19 67 06/19/20 05:32 65 153/68 H 06/19/20 04:17 36.9 C 60 18 147/75 H 96 06/19/20 02:06 87 Laboratory Results 06/19/20 06/19/20 06/19/20 Range/Units 11:20 07:43 05:50 WBC (4.8-10.8) K/uL RBC (4.2-5.4) M/uL Hgb (12.0-16.0) g/dL Hct (37-47) % MCV (80-100) fL MCH (25-34) pg MCHC (32-36) g/dL RDW Std Deviation (36.4-46.3) fL RDW Coeff of Amando (11.5-14.5) % Plt Count (130-400) K/uL MPV (7.4-10.4) fL Immature Gran % (Auto) % Neut % (Auto) % Lymph % (Auto) % Coal % (Auto) % Eos % (Auto) % Baso % (Auto) % Neut # (Auto) (1.4-6.5) K/uL Lymph # (Auto) (1.2-3.4) K/uL Coal # (Auto) (0.11-0.59) K/uL Eos # (Auto) (0-0.5) K/uL Baso # (Auto) (0-0.2) K/uL Immature Gran # (Auto) (0.00-0.02) K/uL PT (9.0-12.0) Seconds INR (0.9-1.1) APTT (21.0-31.0) Seconds PTT Ratio Sodium 144 (136-145) mmol/L Potassium 3.5 (3.5-5.1) mmol/L Chloride 109 H (98-107) mmol/L Carbon Dioxide 29 (21-32) mmol/L Anion Gap 5.0 (3-11) BUN 16 (7-18) mg/dl Creatinine 0.57 L (0.6-1.2) mg/dl Est Cr Clr Drug Dosing 75.1 ml/min Est GFR ( Amer) 98.7 Est GFR (Non-Af Amer) 85.1 BUN/Creatinine Ratio 28.7 H (10-20) Glucose 131 H (70-99) mg/dl POC Glucose 154 H 134 H (70-99) mg/dl Calcium 9.1 (8.5-10.1) mg/dl Total Bilirubin (0.2-1) mg/dl AST (15-37) U/L ALT (12-78) U/L Alkaline Phosphatase (45-117) U/L Troponin I 0.059 H* (0-0.045) ng/ml Total Protein (6.4-8.2) gm/dl Albumin (3.4-5.0) gm/dl Globulin (2.5-4.0) gm/dl Albumin/Globulin Ratio (0.9-2) Lipase (73-393) U/L SARS-CoV-2 Ag (Rapid) (Negative) 06/19/20 06/19/20 06/18/20 Range/Units 05:50 00:17 Unknown WBC 5.45 (4.8-10.8) K/uL RBC 4.37 (4.2-5.4) M/uL Hgb 12.9 (12.0-16.0) g/dL Hct 40.6 (37-47) % MCV 92.9 (80-100) fL MCH 29.5 (25-34) pg MCHC 31.8 L (32-36) g/dL RDW Std Deviation 48.1 H (36.4-46.3) fL RDW Coeff of Amando 14.2 (11.5-14.5) % Plt Count 165 (130-400) K/uL MPV 10.0 (7.4-10.4) fL Immature Gran % (Auto) 0.2 % Neut % (Auto) 53.5 % Lymph % (Auto) 30.5 % Coal % (Auto) 12.5 % Eos % (Auto) 3.1 % Baso % (Auto) 0.2 % Neut # (Auto) 2.92 (1.4-6.5) K/uL Lymph # (Auto) 1.66 (1.2-3.4) K/uL Coal # (Auto) 0.68 H (0.11-0.59) K/uL Eos # (Auto) 0.17 (0-0.5) K/uL Baso # (Auto) 0.01 (0-0.2) K/uL Immature Gran # (Auto) 0.01 (0.00-0.02) K/uL PT (9.0-12.0) Seconds INR (0.9-1.1) APTT (21.0-31.0) Seconds PTT Ratio Sodium (136-145) mmol/L Potassium (3.5-5.1) mmol/L Chloride (98-107) mmol/L Carbon Dioxide (21-32) mmol/L Anion Gap (3-11) BUN (7-18) mg/dl Creatinine (0.6-1.2) mg/dl Est Cr Clr Drug Dosing ml/min Est GFR ( Amer) Est GFR (Non-Af Amer) BUN/Creatinine Ratio (10-20) Glucose (70-99) mg/dl POC Glucose (70-99) mg/dl Calcium (8.5-10.1) mg/dl Total Bilirubin (0.2-1) mg/dl AST (15-37) U/L ALT (12-78) U/L Alkaline Phosphatase (45-117) U/L Troponin I 0.098 H* (0-0.045) ng/ml Total Protein (6.4-8.2) gm/dl Albumin (3.4-5.0) gm/dl Globulin (2.5-4.0) gm/dl Albumin/Globulin Ratio (0.9-2) Lipase (73-393) U/L SARS-CoV-2 Ag (Rapid) Negative (Negative) 06/18/20 06/18/20 06/18/20 Range/Units 21:17 17:27 14:09 WBC (4.8-10.8) K/uL RBC (4.2-5.4) M/uL Hgb (12.0-16.0) g/dL Hct (37-47) % MCV (80-100) fL MCH (25-34) pg MCHC (32-36) g/dL RDW Std Deviation (36.4-46.3) fL RDW Coeff of Amando (11.5-14.5) % Plt Count (130-400) K/uL MPV (7.4-10.4) fL Immature Gran % (Auto) % Neut % (Auto) % Lymph % (Auto) % Coal % (Auto) % Eos % (Auto) % Baso % (Auto) % Neut # (Auto) (1.4-6.5) K/uL Lymph # (Auto) (1.2-3.4) K/uL Coal # (Auto) (0.11-0.59) K/uL Eos # (Auto) (0-0.5) K/uL Baso # (Auto) (0-0.2) K/uL Immature Gran # (Auto) (0.00-0.02) K/uL PT (9.0-12.0) Seconds INR (0.9-1.1) APTT (21.0-31.0) Seconds PTT Ratio Sodium 144 (136-145) mmol/L Potassium 3.6 (3.5-5.1) mmol/L Chloride 107 (98-107) mmol/L Carbon Dioxide 32 (21-32) mmol/L Anion Gap 5.0 (3-11) BUN 16 (7-18) mg/dl Creatinine 0.68 (0.6-1.2) mg/dl Est Cr Clr Drug Dosing 63.0 ml/min Est GFR ( Amer) 93.1 Est GFR (Non-Af Amer) 80.3 BUN/Creatinine Ratio 23.5 H (10-20) Glucose 175 H (70-99) mg/dl POC Glucose 109 H (70-99) mg/dl Calcium 9.1 (8.5-10.1) mg/dl Total Bilirubin 0.4 (0.2-1) mg/dl AST 18 (15-37) U/L ALT 27 (12-78) U/L Alkaline Phosphatase 80 (45-117) U/L Troponin I 0.156 H* 0.083 H* (0-0.045) ng/ml Total Protein 6.8 (6.4-8.2) gm/dl Albumin 3.5 (3.4-5.0) gm/dl Globulin 3.3 (2.5-4.0) gm/dl Albumin/Globulin Ratio 1.1 (0.9-2) Lipase 55 L (73-393) U/L SARS-CoV-2 Ag (Rapid) (Negative) 06/18/20 06/18/20 Range/Units 14:09 14:09 WBC 7.43 (4.8-10.8) K/uL RBC 4.72 (4.2-5.4) M/uL Hgb 14.4 (12.0-16.0) g/dL Hct 43.5 (37-47) % MCV 92.2 (80-100) fL MCH 30.5 (25-34) pg MCHC 33.1 (32-36) g/dL RDW Std Deviation 47.3 H (36.4-46.3) fL RDW Coeff of Amando 14.0 (11.5-14.5) % Plt Count 166 (130-400) K/uL MPV 10.0 (7.4-10.4) fL Immature Gran % (Auto) 0.3 % Neut % (Auto) 78.7 % Lymph % (Auto) 10.9 % Coal % (Auto) 9.3 % Eos % (Auto) 0.7 % Baso % (Auto) 0.1 % Neut # (Auto) 5.85 (1.4-6.5) K/uL Lymph # (Auto) 0.81 L (1.2-3.4) K/uL Coal # (Auto) 0.69 H (0.11-0.59) K/uL Eos # (Auto) 0.05 (0-0.5) K/uL Baso # (Auto) 0.01 (0-0.2) K/uL Immature Gran # (Auto) 0.02 (0.00-0.02) K/uL PT 13.7 H (9.0-12.0) Seconds INR 1.3 H (0.9-1.1) APTT 30.8 (21.0-31.0) Seconds PTT Ratio 1.1 Sodium (136-145) mmol/L Potassium (3.5-5.1) mmol/L Chloride (98-107) mmol/L Carbon Dioxide (21-32) mmol/L Anion Gap (3-11) BUN (7-18) mg/dl Creatinine (0.6-1.2) mg/dl Est Cr Clr Drug Dosing ml/min Est GFR ( Amer) Est GFR (Non-Af Amer) BUN/Creatinine Ratio (10-20) Glucose (70-99) mg/dl POC Glucose (70-99) mg/dl Calcium (8.5-10.1) mg/dl Total Bilirubin (0.2-1) mg/dl AST (15-37) U/L ALT (12-78) U/L Alkaline Phosphatase (45-117) U/L Troponin I (0-0.045) ng/ml Total Protein (6.4-8.2) gm/dl Albumin (3.4-5.0) gm/dl Globulin (2.5-4.0) gm/dl Albumin/Globulin Ratio (0.9-2) Lipase (73-393) U/L SARS-CoV-2 Ag (Rapid) (Negative) PG Care Time/CCT Total # of Minutes Spent Total Time Spent with Patient: Total time spent is greater than 50% in coordination of care (as documented) at patient's floor/unit and/or counseling p atient: Coding Level of Care Code 16179 Subseq Obs Care Lvl 3 Diagnoses Back pain M54.6 Back pain laterality: midline Back pain location: thoracic back pain Chronicity: acute Elevated troponin R77.8 Hypertension I10 Atrial fibrillation I48.0 Atrial fibrillation type: paroxysmal Diabetes mellitus, controlled E11.9 DVT prophylaxis Z29.9 (1) Back pain Back pain laterality: midline Back pain location: thoracic back pain Chronicity: acute Qualified Code(s): M54.6 - Pain in thoracic spine (2) Atrial fibrillation Atrial fibrillation type: paroxysmal Qualified Code(s): I48.0 - Paroxysmal atrial fibrillation
--- NOTE | 2020-06-19 17:58 | XCELERA ---
[id number]
[2020-06-19] MEDS: FLUTICASONE FUROATE 100MCG 14 PUFFS/INHALER INH SCH (21:21)
[2020-06-19] MEDS: PRAVASTATIN SOD 20 MG TAB PO SCH (21:22)
[2020-06-19] MEDS: METOPROLOL TARTRATE 25 MG TAB PO SCH (21:23)
[2020-06-19] MEDS: amLODIPine BESYLATE 5 MG TAB PO SCH (21:26)
--- NOTE | 2020-06-19 23:51 | Cardiology Consultation ---
Date of Consultation June 19, 2020 Assessment & Plan (1) Elevated troponin: 2. Interscapular pain 3. Hypertension 4. Persistent atrial fibrillation 5. Type 2 diabetes 6. Dyslipidemia 7. Mild aortic insufficiency 8. Borderline pulmonary hypertension Patient here with acute onset interscapular pain which has since resolved. With pain on presentation hypertensive with SBP to the 210s. Since admission has been largely pain-free. Blood pressure still elevated but improved. Noted to have mild troponin rise. ECG unremarkable. LV function preserved on echocardiogram. Feel troponin elevation most likely related to myocardial demand mismatch in the setting of hypertension but suspicion for ACS remains elevated with patient risk factors. Would recommend additional risk stratification and favor starting with pharmacologic SPECT. Will try to obtain tomorrow. Please keep n.p.o. overnight. Agree with increased lisinopril and addition of amlodipine. Can increase amlodipine as needed. Continue home metoprolol, anticoagulation with Xarelto. Further recommendations pending findings of stress test. History of Present Illness Attending Physician: Mita Peguero MD History of Present Illness Mrs. Miller is a very pleasant 84-year-old woman with a history of paroxysmal atrial fibrillation, hypertension, dyslipidemia, type 2 diabetes, chronic venous insufficiency admitted with interscapular pain. Cardiology consulted in the setting of elevated troponin. Pain began suddenly yesterday while was lifting objects above her head. Persis teresa for more than 45 minutes. Was associated with shaking primarily in her left arm. Questionable nausea. No associated shortness of breath, palpitations or presyncope. Denies similar prior symptoms. Has been feeling well earlier in the day. Hypertensive on arrival to ED up to 210s over 110s. Initial ECG showed atrial fibrillation, LVH, questionable septal infarct but no dynamic ST abnormality. Initial troponin 0 0.83, trended up to 0.156 and since downtrending. Has been chest/back pain free since admission. CTA negative for dissection or PE. Echo today showed EF 60% with no regional wall motion abnormalities, mild LVH, mild AI, borderline PASP of 41 mmHg Allergies Allergy/AdvReac Type Severity Reaction Status Date / Time simvastatin AdvReac Intermediate DIZZINESS Verified 06/18/20 15:03 Home Medications Medication Instructions Recorded Confirmed Type docusate sodium 100 mg capsule 100 mg PO BID cap 05/13/19 06/18/20 History polyethylene glycol 3350 17 17 gm PO DAILY gm 05/13/19 06/18/20 History gram/dose oral powder ammonium lactate 12 % topical cream 1 appln TOP BID #385 gm 08/31/19 06/18/20 Rx furosemide 20 mg tablet 20 mg PO DAILY #90 tab 10/06/19 06/18/20 Rx albuterol sulfate 90 mcg/actuation 2 puffs INHALATION Q6H PRN #8.5 gm 12/13/19 06/18/20 Rx aerosol inhaler nystatin-triamcinolone 100,000 See Rx Instructions TOP BID #30 gm 12/13/19 06/18/20 Rx unit/g-0.1 % topical cream blood sugar diagnostic #100 ea 01/06/20 06/13/20 Rx glimepiride 1 mg tablet 1 mg PO .COMPLEX #30 tab 06/13/20 06/18/20 Rx lisinopril 30 mg tablet 30 mg PO DAILY #30 tab 06/13/20 06/18/20 Rx metformin 500 mg tablet,extended 1,000 mg PO DAILY #60 tab 06/13/20 06/18/20 Rx release 24 hr metoprolol tartrate 50 mg tablet 50 mg PO BID #60 tab 06/13/20 06/18/20 Rx mometasone 1 inh INH HS #1 ea 06/13/20 06/18/20 Rx pravastatin 20 mg tablet 20 mg PO HS #30 tab 06/13/20 06/18/20 Rx rivaroxaban 20 mg tablet 20 mg PO DAILY #30 tab 06/13/20 06/18/20 Rx Patient History Medical History (Updated 06/19/20 @ 13:44 by Mita Peguero MD) Cataract Contusion of left upper extremity GERD (gastroesophageal reflux disease) History of malignant neoplasm of endometrium Left shoulder strain New onset atrial flutter New onset atrial flutter Paroxysmal A-fib Vaginal bleeding Surgical History H/O: hysterectomy History of cataract surgery Family History Mother Cancer Diabetes Stroke Other Heart disease Social History Smoking Status: Former smoker Hx Alcohol Use: No Hx Substance Use: No Preferred Language: Somali Communication Ability: Effective Hearing Ability: Normal Plant Propagator Required: No Beliefs That Will Affect Care: None marital status: Current Living Situation: Alone current occupational status: retired Other Information That Helps Us Care for You: No Feels Safe at Home: Yes Seatbelt Use: always Sunscreen Use: No Assistive Devices: None Review of Systems Review of Systems: All systems reviewed & are unremarkable except as noted in HPI & below Physical Exam Physical Exam: General: Comfortable, no acute distress Eyes: Sclerae anicteric, extraocular movements intact HENT: Mask in place Neck: No JVD Lungs: Clear to auscultation bilaterally, no rhonchi or wheezes Cardiac: Irregular irregular, no murmur. Interscapular pain in part reproducible Vascular: 2+ radial Abdomen: Soft, nontender Extremities: Well perfused, no peripheral edema Skin: No rashes or lesions. Neuro: Nonfocal Psych: Alert orient x3, normal affect and mood Results & Data ([facility]) Vital Signs (Past 12 Hours) Vital Signs Temp Pulse Pulse Resp BP BP Pulse Ox 06/19/20 22:43 97.7 F 57 L 19 168/73 H 96 06/19/20 19:14 98.2 F 67 16 167/71 H 97 06/19/20 15:13 98.1 F 66 18 150/89 H 96 06/19/20 14:52 61 PG Care Time/CCT Total # of Minutes Spent Total Time Spent with Patient: Total time spent is greater than 50% in coordination of care (as documented) at patient's floor/unit and/or counseling patient: Coding Level of Care Code 94963 Inpt Consult Level 4 Diagnoses Elevated troponin R77.8
[2020-06-20 07:51] LABS: Basophils # (auto) 0.02 K/uL (0-0.2); Basophils % (auto) 0.4 %; Eosinophils # (auto) 0.22 K/uL (0-0.5); Eosinophils % (auto) 4.5 %; Hematocrit (blood only) 41.3 % (37-47); Hemoglobin 13.6 g/dL (12.0-16.0); Immature Granulocytes # (auto) 0.01 K/uL (0.00-0.02); Immature Granulocytes % (auto) 0.2 %; Lymphocytes # (auto) 1.58 K/uL (1.2-3.4); Lymphocytes % (auto) 32.4 %; Mean Corpuscular Hemoglobin 30.3 pg (25-34); Mean Corpuscular Hgb Conc 32.9 g/dL (32-36); Mean Platelet Volume 9.7 fL (7.4-10.4); Monocytes # (auto) 0.54 K/uL (0.11-0.59); Monocytes % (auto) 11.1 %; Neutrophils % (auto) 51.4 %; Platelet Count 157 K/uL (130-400); RDW Standard Deviation 47.5 fL (36.4-46.3); Red Blood Count 4.49 M/uL (4.2-5.4); White Blood Count 4.87 K/uL (4.8-10.8)
[2020-06-20 08:11] LABS: BUN Creatinine Ratio 31.6 (10-20); Calcium 8.8 mg/dl (8.5-10.1); Creatinine Clr Calc Pharmacy 67.6 ml/min; Est GFR (African American) 98.1; Est GFR (Non-African American) 84.6; Potassium 3.7 mmol/L (3.5-5.1)
[2020-06-20] MEDS: METOPROLOL TARTRATE 25 MG TAB PO SCH (08:36)
[2020-06-20] MEDS: FUROSEMIDE 20 MG TAB PO SCH (08:36)
[2020-06-20] MEDS: amLODIPine BESYLATE 5 MG TAB PO SCH (08:36)
[2020-06-20] MEDS: GLIMEPIRIDE 2 MG TAB PO SCH (08:36)
[2020-06-20] MEDS: AMMONIUM LACTATE 12% LOTION 225 GM BTL EXT SCH (08:36)
[2020-06-20] MEDS: NYSTATIN/TRIAMCIN CR 15 GM TUBE EXT SCH (08:36)
[2020-06-20] MEDS: RIVAROXABAN 20 MG TAB PO SCH (08:36)
[2020-06-20] MEDS: INSULIN ASPART 100 UNITS/ML 3 ML PEN SC SCH ×2 (08:38→12:16)
[2020-06-20] MEDS ORDERED: lisinopril 40 MG TAB PO SCH (09:00)
[2020-06-20] MEDS ORDERED: REGADENOSON 0.4 MG/5 ML SYR IV ONE (10:04)
--- NOTE | 2020-06-20 15:04 | Myocardial Perfusion Study ---
Date of Service June 20, 2020 Myocardial Perfusion Study Blk Myocardial Perfusion Study Report PA Act 112: Negative Procedure: 1. Myocardial perfusion study performed in multiple views/images 2. Lexiscan pharmacologic stress ECG Indications: 1. Chest pain Ordering physician: Dr. Flaherty Procedural details: For the stress portion of the study, Lexiscan 0.4 mg was intravenously administered followed by a saline flush. This was followed by 32.2 mCi of technetium 99m Cardiolite, injected at 11:30 a.m. on 06/20/2020. 30 minutes following the injection, imaging of the heart was performed in multiple projections. For the rest portion of the study, 10.5 mCi technetium 99m Cardiolite was injected intravenously at 9:35 a.m. on 06/20/2020. 1 hour following the injection, imaging of the heart was performed in the same projections. Lexiscan stress ECG: Continuous ECG monitoring was performed with supervision and interpretation. Resting ECG demonstrated: Atrial flutter 59 beats per minute Maximum heart rate: 122 bpm Maximal, age-predicted heart rate: 89 % Resting blood pressure: 161/71 mmHg Maximum blood pressure: 161/[address] changes: None Arrhythmia: Atrial flutter throughout Symptoms: Chest tightness Findings: Rotating raw imaging demonstrated no significant lung uptake. There is no significant motion artifact. Heart size appeared normal. Myocardial perfusion demonstrated no significant reversible or fixed defect to suggest ischemia or infarct. Ejection fraction: 73 % Wall motion: Normal No significant transient ischemic dilation. Impression: 1. Negative myocardial perfusion study for ischemia or infarct. 2. Normal wall motion and LV systolic function. EF 73%. 3. Atrial flutter throughout. 4. Lexiscan induced chest pain. 5. Negative Lexiscan stress ECG at 89% MPHR. MNPG Myocardial perfusion code Procedure Code Procedure 1: Myocardial Perfusion Codes: 52700 Cardiovascular Stress Test, multiple Procedure 2: Myocardial Perfusion Codes: 67933 Cardiovascular Stress Test, supervision only Procedure 3: Myocardial Perfusion Codes: 72928 Cardiovascular Stress Test, interpretation and report
--- NOTE | 2020-06-20 15:31 | Cardiology Progress Note ---
Date of Service June 20, 2020 Assessment & Plan (1) Elevated troponin: 2. Interscapular pain 3. Hypertension 4. Persistent atrial fibrillation 5. Type 2 diabetes 6. Dyslipidemia 7. Mild aortic insufficiency 8. Borderline pulmonary hypertension Reviewed patient's pharmacologic SPECT. Essentially normal perfusion with normal LV function and no high risk findings. Feel patient can safely be discharged today. Home on increased lisinopril, new amlodipine. Continue prior metoprolol, continue Xarelto. Follow-up with me in 3 to 4 weeks. Appreciate hospital medicine care. Admission and Anticipated Discharge Date Admission Date: June 18, 2020 Subjective Feeling well this afternoon. Had brief chest pain with regadenoson. No additional chest symptoms. No significant shortness of breath. Tele with atrial flutter, rates in the 30s overnight to the upper 50s-60 today Review of Systems Review of Systems: All systems reviewed & are unremarkable except as noted in HPI & below Physical Exam Physical Exam: General: Comfortable, no acute distress Eyes: Sclerae anicteric, extraocular movements intact HENT: Mask in place Neck: No JVD Lungs: Clear to auscultation bilaterally, no rhonchi or wheezes Cardiac: Irregular irregular, no murmur. Vascular: 2+ radial Abdomen: Soft, nontender Extremities: Well perfused, no peripheral edema Skin: No rashes or lesions. Neuro: Nonfocal Psych: Alert orient x3, normal affect and mood Results & Data ([facility]) Vital Signs (Past 12 Hours) Vital Signs Temp Pulse Pulse Resp BP Pulse Ox 06/20/20 08:32 98.3 F 61 20 151/79 H 97 06/20/20 07:38 47 L 06/20/20 03:43 98.2 F 64 55 L 20 168/72 H 97 PG Care Time/CCT Total # of Minutes Spent Total Time Spent with Patient: Total time spent is greater than 50% in coordinat ion of care (as documented) at patient's floor/unit and/or counseling patient: Coding Level of Care Code 33992 Subseq Hosp Care Lvl 3 Diagnoses Elevated troponin R77.8
--- NOTE | 2020-06-20 16:13 | Discharge Summary ---
Date of Service June 20, 2020 Admission HPI Per Admitting Provider Halina Miller is an 84 year old female who presents to the ER with acute onset back pain. This started at 1pm, never had anything similar in the past, Severity 10/10 between her bilateral shoulders, lasted 30-45 minutes, while she was lifting towels down and on exertion going up the stairs. Associated with shaking of her arms bilaterally. No associated nausea, diaphoresis or shortness of breath. She did not fall or sustain any injuries. She has no history of heart attacks or strokes in the past. In the ER her troponin was minimally positive at 0.083 and BP up to 213/112. Her EKG showed atrial flutter with a variable block which is not new. She was referred to medicine for admission and ongoing management of back pain rule out ID. Principal Diagnosis Hypertensive urgency, myocardial demand ischemia Discharge Exam Constitutional WD/WN, vitals as above Eyes + anicteric sclerae Neck trachea midline, no thyromegaly Respiratory normal respiratory effort, lungs clear to auscultation Cardiovascular Rate/Rhythm: regular rate and + irregularly irregular Heart Sounds: no murmur Extremities: no edema Chest (Breasts) Chest: normal inspection of chest Gastrointestinal (Abdomen) normal bowel sounds, soft, nontender, no hepatosplenomegaly Musculoskeletal Extremities: extremities normal to inspection; no cyanosis and no clubbing Skin no rashes, warm and dry Neurologic moves all extremities and awake; no focal motor deficits Psychiatric Orientation: alert, oriented to person, oriented to place and cooperative Lymphatic no lymphedema Discharge Data Allergies Allergy/AdvReac Type Severity Reaction Status Date / Time simvastatin AdvReac Intermediate DIZZINESS Verified 06/18/20 15:03 Consultations 06/18/20 22:38 Consult Cardiology Routine 06/19/20 09:14 Consult Cardiology Routine Ordered Studies 06/18/20 14:50 CT angio chest dissec wo/w con Stat 06/18/20 14:51 CT head/brain wo con Stat Nuclear stress test Hospital Course (1) Back pain: Presented with severe upper back pain between shoulder blades Concern for ACS given severity, elevated troponin and elevated BP although most likely musculoskeletal. Dissection ruled out on imaging. Most likely musculoskeletal which then caused hypertensive urgency Serial troponins peaked at 0.156 and back down again-this is likely secondary to myocardial demand ischemia from hypertensive urgency. Cardiology consultation appreciated-recommended nuclear stress test-this was performed and was negative for inducible ischemia Needs improved BP control-see below -No aspirin needed on discharge -Echocardiogram with preserved EF and negative for wall motion abnormalities -continue pravastatin, metoprolol Continue Xarelto for anticoagulation. HbA1C 6.8 [06/13/2020] LDL @ goal 64 [12/13/2019] She had no further back pain while she was here (2) Elevated troponin: Suspect demand-ischemia in setting of hypertensive urgency as above ECHO (3) Hypertension: Hypertensive urgency-now resolved. Blood pressure was in the 220s systolic upon admission Blood pressures remain mildly elevated but are improved Continue lisinopril and increase to 40mg once daily -continue metoprolol but decrease to 25mg bid due to bradycardia into the 30s -continue furosemide home dose Added on amlodipine 5 mg p.o. once daily and this can be titrated upward as an outpatient if needed Follow-up with PCP (4) Atrial fibrillation: Prior history of flutter/fibrillation rates jon into 30s with sleep, 50-60s daytime Continue Xarelto for anticoagulation lowered metoprolol to 25mg PO BID and bradycardia improved (5) Diabetes mellitus, controlled: Continue glimepiride with Novolog sliding scale for correction only Hold metformin due to contrast given with CT-can restart this upon discharge (6) DVT prophylaxis: Xarelto Dispo-stable for discharge to home Total Time Total Time Spent Total Time Spent (In Minutes): 35 min Total Time Includes: Examination of the Patient, Discharge Planning, Medication Reconciliation and Communication With Other Providers (Cardiology) Discharge Plan Discharge Items Patient Disposition: Home - Self-Care Reason For Visit: CHEST PAIN RULE OUT ID Discharge Diagnosis: Hypertensive urgency, upper back pain Condition on Discharge: Good Activity: As commented below Lifting: Gradually increase as tolerated Bathing: No limitations Exercise/Sports: Gradually increase as tolerated Weightbearing: Full weightbearing Non-emergency contact: Primary Care Provider Call non-emergency contact if: you have any medication questions, your symptoms worsen, your pain is not controlled, your pain is worsening, your pain is unusual for you and your pain is concerning for you Follow-up/Referrals: Ariadna Garcia CRNP [Primary Care Provider] - 06/26/20 2:00 pm (You have a follow up appt, with Ariadna Garcia on Tuesday 06/26 at 2pm. Please arrive 15 minutes prior to your appt time. It is important that you keep this appt, if it does not fit your schedule please call [phone]. Address: [address] [place] [id number]) Diet: Carb Consistent or DM2 and Heart Healthy Addtl Attending Provider Instructions: You were admitted with significant upper back pain and a mildly elevated blood test called troponin which has to do with the heart. It appears the pain in your back was most likely strain of the muscles but this caused your blood pressure to go very high. The high blood pressure then put strain on your heart. You had a stress test of the heart which was normal as per the mold machine operator. Your blood pressure medication called lisinopril was increased to 40 mg daily, and a new blood pressure pill was added on which is called amlodipine. Your metoprolol dose was cut in half to 25 mg by mouth twice a day because your heart rate was a little bit too low. Please follow-up with your primary care physician as scheduled for you. Pending Studies at Discharge: No Stand-Alone Forms: My [facility] [address] Medications and DC Order Prescriptions: New amlodipine [Norvasc] 5 mg Tablet 5 mg PO QAM Qty: 30 RF: 0 lisinopril [Zestril] 40 mg Tablet 40 mg PO DAILY Qty: 30 RF: 0 Continued ammonium lactate 12 % cream 1 appln TOP BID Qty: 385 RF: 3 furosemide 20 mg tablet 20 mg PO DAILY Qty: 90 RF: 1 (DME) OneTouch Ultra Blue Test Strip Strip See Dose Instructions .ROUTE .MEDSUPPLY Qty: 100 RF: 5 glimepiride 1 mg tablet 1 mg PO .COMPLEX Qty: 30 RF: 5 metformin 500 mg tablet extended release 24 hr 1,000 mg PO DAILY Qty: 60 RF: 5 Asmanex Twisthaler 220 mcg/ actuation (30) aerosol powdr breath activated 1 inh INH HS Qty: 1 RF: 5 pravastatin 20 mg tablet 20 mg PO HS Qty: 30 RF: 5 rivaroxaban 20 mg tablet 20 mg PO DAILY Qty: 30 RF: 11 docusate sodium 100 mg capsule 100 mg PO BID RF: 0 polyethylene glycol 3350 17 gram/dose powder 17 gm PO DAILY RF: 0 albuterol sulfate 90 mcg/actuation HFA aerosol inhaler 2 puffs inhalation Q6H PRN (Reason: shortness of breath or wheezing) Qty: 8.5 RF: 5 nystatin-triamcinolone 100,000-0.1 unit/g-% cream See Rx Instructions TOP BID Qty: 30 RF: 2 Changed metoprolol tartrate 50 mg tablet 25 mg PO BID Qty: 60 RF: 5 Discontinued lisinopril 30 mg tablet 30 mg PO DAILY Qty: 30 RF: 5 Discharge Orders: Discharge Order (Routine); Ordered 06/20/20 Ordered By: Mita Peguero Admission Data Admit Date/Time: 06/18/20 17:45 Attending Provider: Mita Peguero Admit Provider: Edgar Martinez Primary Care Provider: Ariadna Garcia Other Providers: Luiz Lowe ; Melo Laguna Other Interventions: Discharge Summary Assessment (RN) Last Done: 06/20/20 15:53 Coding Level of Care Code 65129 OBS Care - Discharge Diagnoses Back pain M54.6 Back pain laterality: midline Back pain location: thoracic back pain Chronicity: acute Elevated troponin R77.8 Hypertension I10 Atrial fibrillation I48.0 Atrial fibrillation type: paroxysmal Diabetes mellitus, controlled E11.9 DVT prophylaxis Z29.9
== END 2020-06-20 17:11 | disposition home or self-care (01) ==
LOC: 2W 13:14 → ED 13:14 → SUATTDRO 17:45 → 2W 19:59

== ENCOUNTER 2023-09-12 23:10 | Observation (INO) ==
[2023-09-12 23:56] LABS: Hematocrit (blood only) 35.5 % (37.0-47.0); Hemoglobin 11.3 g/dl (12.0-16.0); Mean Corpuscular Hemoglobin 28.7 pg (25.0-34.0); Mean Corpuscular Hgb Conc 31.8 g/dL (32.0-36.0); Mean Corpuscular Volume 90.1 fL (80.0-100.0); Mean Platelet Volume 9.5 fL (9.4-12.4); Platelet Count 193 K/uL (130-400); RDW Coefficient of Variation 13.5 % (11.5-14.5); RDW Standard Deviation 44.4 fL (36.4-46.3); Red Blood Count 3.94 M/uL (4.20-5.40); White Blood Count 6.47 K/ul (4.8-10.8)
[2023-09-13 00:33] LABS: INR 1.1 (0.9-1.1); Partial Thromboplastin Ratio 1.1; Partial Thromboplastin Time 31 Seconds (21-31); Prothrombin Time 11.6 Seconds (9.0-12.0)
[2023-09-13 00:34] LABS: Alanine Aminotransferase 19 U/L (7-52); Albumin Globulin Ratio 1.8 (0.9-2); Albumin Level 4.2 gm/dl (3.4-5.0); Alkaline Phosphatase 65 U/L (34-104); Anion Gap 6 (3-11); BUN Creatinine Ratio 27.1 (10-20); Bilirubin,Total 0.3 mg/dl (0.2-1.0); Blood Urea Nitrogen 23 mg/dl (6-23); Calcium 9.1 mg/dl (8.6-10.3); Carbon Dioxide 27 mmol/L (21-32); Chloride 106 mmol/L (98-107); Creatinine Clr Calc Pharmacy 49.1 ml/min; Est GFR (African American) 70.9 ml/min; Est GFR (Non-African American) 61.2 ml/min; Globulin 2.4 gm/dl (2.5-4.0); Glucose 133 mg/dl (70-99(Fasting)); Sodium 139 mmol/L (136-145); Total Protein 6.6 gm/dl (6.0-8.3); Troponin I High Sensitivity 15.8 pg/ml (0-14)
--- NOTE | 2023-09-13 01:07 | Emergency Department Note ---
Impression & Plan GIB (gastrointestinal bleeding) ED Provider Note NAME: GREG MANUEL AGE: 88 SEX: F : 1935 ARRIVES VIA: Ambulance INFORMANT: Patient, ED PROVIDER(S): Dong Hernadez MD CHIEF COMPLAINT: Rectal bleeding HPI: This is an 88-year-old female presents for rectal bleeding. Patient has a history of GERD, diabetes. She is currently on rivaroxaban. Patient states that she has had 2 episodes of rectal bleeding. She states that it is a moderate amount on the toilet paper. She does not think she filled the toilet bowl with blood. She notes that the last episode that happened tonight alarmed her due to the amount. She states that she does not member having a colonoscopy in the past. This never happened before. ROS: See above HPI for pertinent positives & negatives. A total of 10 systems reviewed and were otherwise negative. PAST MEDICAL HISTORY: See Below PAST SURGICAL HISTORY: See Below FAMILY HISTORY: See Below SOCIAL HISTORY: See Below HOME MEDICATIONS: See Below ALLERGIES: See Below VITALS: See Below PHYSICAL EXAMINATION: General: resting comfortably in no acute distress Head: Normocephalic and atraumatic Eyes: Normal inspection, extraocular muscles intact Ear, nose, throat: Normal external exam Neck: Normal range of motion Respiratory: lungs clear to auscultation bilaterally Cardiovascular: Regular rate/rhythm, no murmur GI: soft, nontender, no guarding or rebound, external hemorrhoids noted, Hemoccult positive stool Extremities: nontender, moves all extremities Neuro: The patient awake and alert, appropriately conversive, no focal deficits, symmetric faces Skin: Warm, dry, and intact MEDICAL DECISION MAKING: This 88-year-old female sent for rectal bleeding. Patient's hemoglobin is slightly lower than previous baseline, down by about 2 points. Patient was clinically well, reassuring vital signs. Patient is on anticoagulation at this time however. Did discuss options with patient including discharge home with GI follow-up versus admission. Patient states that she would rather be admitted at this time. Differential diagnosis: GI bleed, upper GI bleed, lower GI bleed, hemorrhoids ER treatment provided: See below Diagnostics interpreted by me: ECG: ECG independently interpreted by me with atrial fibrillation, rate of 57, normal axis, normal QRS, normal QTc, no ST segment elevations consistent with STEMI criteria Cardiac Monitoring: An order was placed for continuous cardiac monitoring. The monitor shows a rate of with rhythm. Laboratory studies: As stated above and show below. Imaging studies: See below. Past Med/Surg History Medical History Cataract Contusion of left upper extremity GERD (gastroesophageal reflux disease) History of malignant neoplasm of endometrium Hypertension Left shoulder strain New onset atrial flutter New onset atrial flutter Paroxysmal A-fib Pulmonary nodules Vaginal bleeding Surgical History H/O: hysterectomy History of cataract surgery Family History Mother Cancer Diabetes Stroke Other Heart disease Denies family history of Ovarian cancer Prostate cancer Myocardial infarction Breast cancer Colorectal cancer Social History Smoking Status: Former smoker Second Hand Exposure: No; Do You Dip or Chew Tobacco: No; Hx Alcohol Use: No Hx Substance Use: No Preferred Language: Kazakh Communication Ability: Effective Visual Impairment: No Limitations Hearing Ability: Normal Mirror Silverer Required: No Beliefs That Will Affect Care: None marital status: Current Living Situation: Alone current occupational status: retired 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 Feels Safe at Home: Yes Childhood Exposure to Second-Hand Smoke: Yes Diet: regular caffeine: Yes Dental Care, Regularly: No Physical Activity Frequency: Does not Exercise Physical Activity Frequency Comment: Seatbelt Use: always Sunscreen Use: No Assistive Devices: Cane Allergies Allergies Allergy/AdvReac Type Severity Reaction Status Date / Time simvastatin AdvReac Intermediate DIZZINESS Verified 07/02/23 11:00 Home Meds Home Medications Medication Instructions Recorded Confirmed docusate sodium 100 mg capsule 100 mg PO QAM 05/13/19 09/12/23 polyethylene glycol 3350 17 17 gm PO DAILY PRN Constipation 05/13/19 09/12/23 gram/dose oral powder fluticasone propionate 110 1 puff inhalation BID 09/12/23 09/12/23 mcg/actuation HFA aerosol inhaler Previous Rx's Medication Instructions Recorded metoprolol tartrate 25 mg tablet 25 mg PO BID #180 tabs 10/10/22 lisinopril 40 mg tablet (Zestril) 40 mg PO DAILY #90 tabs 12/06/22 metformin 500 mg tablet,extended 500 mg PO BID #180 tabs 12/09/22 release 24 hr blood sugar diagnostic #100 ea 12/18/22 albuterol sulfate 90 mcg/actuation 2 puff inhalation Q6H PRN 06/09/23 aerosol inhaler shortness of breath or wheezing #8.5 grams torsemide 20 mg tablet 20 mg PO DAILY #30 tabs 07/02/23 amlodipine 10 mg tablet 10 mg PO QAM #90 tabs 07/17/23 rivaroxaban 20 mg tablet 20 mg PO QAM #90 tabs 07/17/23 glimepiride 1 mg tablet 1 mg PO QDB #90 tabs 08/20/23 pravastatin 20 mg tablet 20 mg PO HS #90 tabs 08/20/23 Results & Data (ED) Vital Signs Vital Signs - 24 hr 09/12/23 23:17 09/12/23 23:28 09/13/23 00:00 Temperature 36.5 C Temperature Source Oral Pulse Rate 83 64 85 Respiratory Rate 18 18 Respiratory Effort / Characteristics Non-Labored Spontaneous Respiratory Depth Normal Blood Pressure 158/73 H 154/81 H Blood Pressure Mean 101 105 Pulse Oximetry 98 99 Oxygen Delivery Method Room Air Sepsis Recent Fever Within 48 Hours No Sepsis New/Unexplained Change in Mental Status N/A Sepsis Action Taken by Nursing No Action Required 09/13/23 01:00 09/13/23 02:00 Temperature Temperature Source Pulse Rate 86 90 Respiratory Rate 22 20 Respiratory Effort / Characteristics Respiratory Depth Blood Pressure 175/92 H 163/84 H Blood Pressure Mean 119 110 Pulse Oximetry 98 95 Oxygen Delivery Method Sepsis Recent Fever Within 48 Hours Sepsis New/Unexplained Change in Mental Status Sepsis Action Taken by Nursing Laboratory Data 09/13/23 05:29 09/13/23 05:29 Lab Results 09/12/23 09/13/23 Range/Units 23:20 00:33 WBC 6.47 (4.8-10.8) K/ul RBC 3.94 L (4.20-5.40) M/uL Hgb 11.3 L (12.0-16.0) g/dl Hct 35.5 L (37.0-47.0) % MCV 90.1 (80.0-100.0) fL MCH 28.7 (25.0-34.0) pg MCHC 31.8 L (32.0-36.0) g/dL RDW Std Deviation 44.4 (36.4-46.3) fL RDW Coeff of Amando 13.5 (11.5-14.5) % Plt Count 193 (130-400) K/uL MPV 9.5 (9.4-12.4) fL PT 11.6 (9.0-12.0) Seconds INR 1.1 (0.9-1.1) APTT 31 (21-31) Seconds PTT Ratio 1.1 Sodium 139 (136-145) mmol/L Potassium TNP 4.6 Chloride 106 (98-107) mmol/L Carbon Dioxide 27 (21-32) mmol/L Anion Gap 6 (3-11) BUN 23 (6-23) mg/dl Creatinine 0.85 (0.6-1.2) mg/dl Est Cr Clr Drug Dosing 49.1 ml/min Est GFR ( Amer) 70.9 ml/min Est GFR (Non-Af Amer) 61.2 ml/min BUN/Creatinine Ratio 27.1 H (10-20) Glucose 133 H (70-99(Fasting)) mg/dl Calcium 9.1 (8.6-10.3) mg/dl Total Bilirubin 0.3 (0.2-1.0) mg/dl AST TNP 24 ALT 19 (7-52) U/L Alkaline Phosphatase 65 (34-104) U/L Troponin I High Sens 15.8 H (0-14) pg/ml Total Protein 6.6 (6.0-8.3) gm/dl Albumin 4.2 (3.4-5.0) gm/dl Globulin 2.4 L (2.5-4.0) gm/dl Albumin/Globulin Ratio 1.8 (0.9-2) Administered Medications Sodium Chloride (Nss) 1,000 mls @ 80 mls/hr IV .[id number] [facility] Stop: 10/13/23 04:01 Last Admin: 09/13/23 04:48 Dose: 80 mls/hr Documented By: DANISHA Ceftriaxone Sodium 2,000 mg/ (Dextrose) 50 mls @ 100 mls/hr IV Q24H [facility]; Protocol Stop: 09/15/23 04:59 Last Infusion: 03/09/24 05:39 Dose: Infused Documented By: Admin: 09/13/23 04:45 Dose: 100 mls/hr Documented By: DANISHA Insulin Aspart (Insulin Aspart Per Unit Charge) 0 units SC Q6 [facility] Stop: 10/13/23 05:59 Last Admin: 09/13/23 05:39 Dose: Not Given Documented By: DANISHA Discharge Plan Visit Data Chief Complaint: Rectal Bleed ED Provider: Dong Hernadez Discharge Problem: GIB (gastrointestinal bleeding) Patient Disposition: Admitted As Inpatient Discharge Instructions Interventions: ED Discharge Assessment Last Done: 09/13/23 03:18
[2023-09-13 01:14] LABS: Potassium 4.6 mmol/L (3.5-5.1)
--- NOTE | 2023-09-13 01:26 | History & Physical Report ---
Date of Service September 13, 2023 Assessment & Plan (1) GERD (gastroesophageal reflux disease): (2) Anticoagulant long-term use: (3) Chronic venous insufficiency: (4) Diabetes mellitus, controlled: (5) Paroxysmal A-fib: (6) Venous stasis: (7) Rectal bleed: Plan Rectal Bleed -Hgb 11.3 on arrival, baseline seems to be ~13 -Vitals stable, patient asymptomatic without dizziness/lightheadedness -Will start maintenance IV fluids, keep NPO -GI consult placed. Started IV Protonix BID, Ceftriaxone -Holding Xarelto -Repeat CBC in a.m. Paroxysmal Atrial fibrillation -Holding home Xarelto due to current bleed DM II - on metformin ER 500mg BID and glimepiride 1mg daily -Holding home medication -Sliding scale insulin ordered -A1c 7.2% July, Hypercholesterolemia -On pravastatin at home, holding while NPO Hypertension -Takes Lisinopril, Amlodipine -Will hold PO medications in setting of GI bleed. Resume when able Admit to med/tele VTE Prophylaxis: held due to current GI bleed Diet: NPO Code Status: Full Code History of Present Illness Primary Care Provider: PAYTON Lauaret Angela is a 88 year-old female with a past medical history of GERD, type 2 diabetes mellitus, hyperlipidemia, HTN, chronic venous insufficiency, pa roxysmal atrial fibrillation. She presents due to concern of rectal bleeding- she recalls that in the morning on 09/11, she was straining to have a bowel movement and while wiping she noted blood on the toilet paper. She states she had another bowel movement in the evening with even more blood on the toilet paper, she is unsure of how much/if any blood was present in the toilet bowl. She denies any dizziness or lightheadedness. She notes she has hemorrhoids but denies ever having bleeding like this. She stake Xarelto every morning for her atrial fibrillation, states she took her last dose on the same morning as the rectal bleeding began. She reports living independently at home. ED Course: -CBC, PT/INR, CMP -EKG -Positive hemoccult Allergies Allergy/AdvReac Type Severity Reaction Status Date / Time simvastatin AdvReac Intermediate DIZZINESS Verified 07/02/23 11:00 Home Medications Medication Instructions Recorded Confirmed Type docusate sodium 100 mg capsule 100 mg PO QAM 05/13/19 09/12/23 History polyethylene glycol 3350 17 17 gm PO DAILY PRN Constipation 05/13/19 09/12/23 History gram/dose oral powder metoprolol tartrate 25 mg tablet 25 mg PO BID #180 tabs 10/10/22 09/12/23 Rx lisinopril 40 mg tablet (Zestril) 40 mg PO DAILY #90 tabs 12/06/22 09/12/23 Rx metformin 500 mg tablet,extended 500 mg PO BID #180 tabs 12/09/22 09/12/23 Rx release 24 hr blood sugar diagnostic #100 ea 12/18/22 09/12/23 Rx albuterol sulfate 90 mcg/actuation 2 puff inhalation Q6H PRN 06/09/23 09/12/23 Rx aerosol inhaler shortness of breath or wheezing #8.5 grams torsemide 20 mg tablet 20 mg PO DAILY #30 tabs 07/02/23 09/12/23 Rx amlodipine 10 mg tablet 10 mg PO QAM #90 tabs 07/17/23 09/12/23 Rx rivaroxaban 20 mg tablet 20 mg PO QAM #90 tabs 07/17/23 09/12/23 Rx glimepiride 1 mg tablet 1 mg PO QDB #90 tabs 08/20/23 09/12/23 Rx pravastatin 20 mg tablet 20 mg PO HS #90 tabs 08/20/23 09/12/23 Rx fluticasone propionate 110 1 puff inhalation BID 09/12/23 09/12/23 History mcg/actuation HFA aerosol inhaler Past Med/Surg History Medical History Pulmonary nodules GERD (gastroesophageal reflux disease) History of malignant neoplasm of endometrium Cataract Hypertension Paroxysmal A-fib Left shoulder strain Contusion of left upper extremity Vaginal bleeding New onset atrial flutter New onset atrial flutter Surgical History History of cataract surgery H/O: hysterectomy Family History Mother Cancer Diabetes Stroke Other Heart disease Denies family history of Ovarian cancer Prostate cancer Myocardial infarction Breast cancer Colorectal cancer Social History Smoking Status: Former smoker Second Hand Exposure: No; Do You Dip or Chew Tobacco: No; Hx Alcohol Use: No Hx Substance Use: No Preferred Language: Montenegrin Communication Ability: Effective Visual Impairment: No Limitations Hearing Ability: Normal Showroom Salesperson Required: No Beliefs That Will Affect Care: None marital status: Current Living Situation: Alone current occupational status: retired 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 Feels Safe at Home: Yes Childhood Exposure to Second-Hand Smoke: Yes Diet: regular caffeine: Yes Dental Care, Regularly: No Physical Activity Frequency: Does not Exercise Physical Activity Frequency Comment: Seatbelt Use: always Sunscreen Use: No Assistive Devices: Cane Review of Systems Review of Systems: As per above Physical Exam Constitutional: WD/WN, vitals as above Eyes: + anicteric sclerae; no conjunctival abn ormality ENMT: Ears: no external ear abnormality Nose: no external nose abnormality Moist mucous membranes Respiratory: normal respiratory effort, lungs clear to auscultation Cardiovascular: Rate/Rhythm: + irregularly irregular Extremities: + edema (pitting edema of bilateral lower extremities) Gastrointestinal (Abdomen): Inspection/Auscultation: abdomen normal to inspection; abdomen not distended Percussion/Palpation: abdomen soft; abdomen nontender Skin: no rashes, warm and dry Neurologic: no focal motor deficits Psychiatric: A+Ox3, euthymic affect Results & Data Results & Data Vital Signs (Past 12 Hours) Vital Signs Temp Pulse Resp BP Pulse Ox O2 Del Method 09/13/23 01:00 86 22 175/92 H 98 09/13/23 00:00 85 18 154/81 H 99 09/12/23 23:28 64 09/12/23 23:17 36.5 C 83 18 158/73 H 98 Room Air Supervising Physician Co-Signing Physician Notes Attending addendum: I have physically seen this patient, have supervised the medical residents activities, and agree with the H&P unless as otherwise noted. Assessment and Plan: Bright red blood per rectum- Hemoglobin 11.3 on arrival, with base 13.0 NPO except essential medications Continue IV fluids as noted Pantoprazole 40 mg IV twice daily Ceftriaxone IV daily Hold Xarelto Follow serial H&H's Consult gastroenterology Paroxysmal atrial fibrillation/hypertension- Troponin 15.8, likely supply/demand mismatch, no symptomatology Hold lisinopril, amlodipine and Xarelto Lopressor 5 mg IV every 4 hours as needed for heart rate greater than 110 Diabetes mellitus- Hold metformin and glimepiride Placed on Accu-Cheks with NovoLog SSI Remaining orders and notations as noted Resident Activity Tracking Resident Involvement: Resident Care Provided Care Provided: Adult Hospital Medicine
[2023-09-13] MEDS ORDERED: GLUCOSE 40% GEL 15 GM TUBE PO PRN (04:02)
[2023-09-13] MEDS ORDERED: CARBOHYDRATES FOR HYPOGLYCEMIA PO PRN (04:02)
[2023-09-13] MEDS ORDERED: GLUCOSE 10 TAB/TUBE PO PRN (04:02)
[2023-09-13] MEDS ORDERED: GLUCAGON FOR INJ 1 MG VIAL SQ PRN (04:02)
[2023-09-13] MEDS ORDERED: DEXTROSE 50% 50 ML SYRINGE IV PRN (04:02)
[2023-09-13] MEDS ORDERED: ACETAMINOPHEN 325 MG TAB PO PRN (04:02)
[2023-09-13] MEDS ORDERED: ALBUTEROL HFA 8 GM INHALER INH PRN (04:02)
[2023-09-13] MEDS: cefTRIAXone SODIUM 2,000 MG in DEXTROSE 5 % MINI-B 50 ML IV SCH (04:45)
[2023-09-13] MEDS: SODIUM CHLORIDE 0.9% 1,000 ML IV SCH (04:48)
[2023-09-13] MEDS: INSULIN ASPART PER UNIT CHARGE SC SCH (05:39)
[2023-09-13 06:06] LABS: Basophils # (auto) 0.03 K/uL (0.00-0.20); Basophils % (auto) 0.4 %; Eosinophils % (auto) 1.5 %; Hemoglobin 10.9 g/dl (12.0-16.0); Immature Granulocytes # (auto) 0.02 K/uL (0.01-0.20); Immature Granulocytes % (auto) 0.3 %; Lymphocytes # (auto) 1.53 K/uL (1.20-3.40); Lymphocytes % (auto) 22.2 %; Mean Corpuscular Hemoglobin 28.5 pg (25.0-34.0); Mean Corpuscular Hgb Conc 32.1 g/dL (32.0-36.0); Mean Corpuscular Volume 88.8 fL (80.0-100.0); Mean Platelet Volume 9.5 fL (9.4-12.4); Monocytes # (auto) 0.73 K/uL (0.11-0.59); Monocytes % (auto) 10.6 %; Neutrophils # (auto) 4.48 K/uL (1.40-6.50); Platelet Count 176 K/uL (130-400); RDW Coefficient of Variation 13.5 % (11.5-14.5); Red Blood Count 3.83 M/uL (4.20-5.40); White Blood Count 6.89 K/ul (4.8-10.8)
[2023-09-13 06:10] LABS: Albumin Globulin Ratio 1.6 (0.9-2); Albumin Level 3.7 gm/dl (3.4-5.0); BUN Creatinine Ratio 27.1 (10-20); Bilirubin,Total 0.3 mg/dl (0.2-1.0); Creatinine Clr Calc Pharmacy 57.3 ml/min; Est GFR (African American) 89.7 ml/min; Est GFR (Non-African American) 77.4 ml/min; Globulin 2.3 gm/dl (2.5-4.0)
--- NOTE | 2023-09-13 07:45 | Hospitalist Progress Note ---
Date of Service September 13, 2023 Assessment & Plan (1) GERD (gastroesophageal reflux disease): (2) Anticoagulant long-term use: (3) Chronic venous insufficiency: (4) Diabetes mellitus, controlled: (5) Paroxysmal A-fib: (6) Venous stasis: (7) Rectal bleed: Plan Rectal Bleed -Hgb 11.3 on arrival, baseline seems to be ~13 -Vitals stable, patient asymptomatic without dizziness/lightheadedness -Will start maintenance IV fluids, keep NPO -GI consult placed. Started IV Protonix BID, Ceftriaxone -Holding Xarelto -Repeat CBC in a.m. Paroxysmal Atrial fibrillation -Holding home Xarelto due to current bleed DM II - on metformin ER 500mg BID and glimepiride 1mg daily -Holding home medication -Sliding scale insulin ordered -A1c 7.2% July, Hypercholesterolemia -On pravastatin at home, holding while NPO Hypertension -Takes Lisinopril, Amlodipine -Will hold PO medications in setting of GI bleed. Resume when able Admit to med/tele VTE Prophylaxis: held due to current GI bleed Diet: NPO Code Status: Full Code Admission and Anticipated Discharge Date Admission Date: September 13, 2023 Results & Data Results & Data Vital Signs (Past 12 Hours) Vital Signs Temp Pulse Pulse Resp BP BP Pulse Ox 09/13/23 03:40 36.6 C 103 H 18 179/75 H 94 09/13/23 03:00 68 18 133/70 94 09/13/23 02:00 90 20 163/84 H 95 09/13/23 01:00 86 22 175/92 H 98 09/13/23 00:00 85 18 154/81 H 99 09/12/23 23:28 64 09/12/23 23:17 36.5 C 83 18 158/73 H 98 O2 Del Method 09/13/23 03:40 Room Air 09/13/23 03:00 09/13/23 02:00 09/13/23 01:00 09/13/23 00:00 09/12/23 23:28 09/12/23 23:17 Room Air
[2023-09-13] MEDS: FLUTICASONE FUROATE 200MCG 14 PUFFS/INHALER INH SCH (08:52)
[2023-09-13] MEDS: PANTOprazole 40 MG in SYRINGE 0 ML IV SCH (08:52)
[2023-09-13] MEDS ORDERED: PNEUMOCOCCAL VACCINE (PCV20) 20-VAL CONJ-DIP CRM/PF 0.5 ML SYR IM ONE (09:00)
--- NOTE | 2023-09-13 09:11 | Electrocardiogram Report ---
Test Reason : Blood Pressure : / mmHG Vent. Rate : 057 BPM Atrial Rate : 000 BPM P-R Int : 000 ms QRS Dur : 082 ms QT Int : 412 ms P-R-T Axes : 000 -12 053 degrees QTc Int : 401 ms Atrial flutter with slow ventricular response Abnormal ECG When compared with ECG of 09-DEC-2022 11:19, HR has decreased by 13 bpm Confirmed by Naresh Fields ([id number] on 09/13/2023 9:10:56 AM Referred By: REFERRED SELF Confirmed By:Naresh Fields
[2023-09-13] MEDS: LANTUS PER UNIT CHARGE SQ SCH (09:26)
--- NOTE | 2023-09-13 10:18 | Gastrointestinal Consultation ---
Date of Consultation September 13, 2023 Assessment & Plan (1) Rectal bleed: Her history suggests she had some bleeding from an anorectal source, either hemorrhoids or irritation from hard stool. She is NOT having a GI bleed. Her stool was normal color and solid and firm. I do not plan colonoscopy unless co nditions change. I do not think she has an UGI source for her bleeding so she doesn't need IV PPI. I would observe her, start advancing diet and hopefully get her out soon. If it is deemed that she needs to stay on anticoagulants then I think you can restart them cautiously. History of Present Illness Reason for Consultation: rectal bleeding Attending Physician: Rosalie Hoskins MD History of Present Illness 88 year old female said she went to the bathroom yesterday and had blood on the toilet tissue. She says she "took a wipe and wiped it off". She says there was no blood in the water and no blood in the stool. Her bowel movement was solid and a little hard. She went to the bathroom a second time later that day with the same results. More red blood on the tissue, none in the water, solid stool with no blood. She has had no bowel movements since then and has leaked no blood. She denies any issues with abdominal or rectal pain. She has no nausea or vomiting. Otherwise she feels well. Her last colonoscopy was "ages ago". She is on rivaroxaban but doesn't know why she is on it. Allergies Allergy/AdvReac Type Severity Reaction Status Date / Time simvastatin AdvReac Intermediate DIZZINESS Verified 07/02/23 11:00 Home Medications Medication Instructions Recorded Confirmed Type docusate sodium 100 mg capsule 100 mg PO QAM 05/13/19 09/12/23 History polyethylene glycol 3350 17 17 gm PO DAILY PRN Constipation 05/13/19 09/12/23 History gram/dose oral powder metoprolol tartrate 25 mg tablet 25 mg PO BID #180 tabs 10/10/22 09/12/23 Rx lisinopril 40 mg tablet (Zestril) 40 mg PO DAILY #90 tabs 12/06/22 09/12/23 Rx metformin 500 mg tablet,extended 500 mg PO BID #180 tabs 12/09/22 09/12/23 Rx release 24 hr blood sugar diagnostic #100 ea 12/18/22 09/12/23 Rx albuterol sulfate 90 mcg/actuation 2 puff inhalation Q6H PRN 06/09/23 09/12/23 Rx aerosol inhaler shortness of breath or wheezing #8.5 grams torsemide 20 mg tablet 20 mg PO DAILY #30 tabs 07/02/23 09/12/23 Rx amlodipine 10 mg tablet 10 mg PO QAM #90 tabs 07/17/23 09/12/23 Rx rivaroxaban 20 mg tablet 20 mg PO QAM #90 tabs 07/17/23 09/12/23 Rx glimepiride 1 mg tablet 1 mg PO QDB #90 tabs 08/20/23 09/12/23 Rx pravastatin 20 mg tablet 20 mg PO HS #90 tabs 08/20/23 09/12/23 Rx fluticasone propionate 110 1 puff inhalation BID 09/12/23 09/12/23 History mcg/actuation HFA aerosol inhaler Patient History Medical History Pulmonary nodules GERD (gastroesophageal reflux disease) History of malignant neoplasm of endometrium Cataract Hypertension Paroxysmal A-fib Left shoulder strain Contusion of left upper extremity Vaginal bleeding New onset atrial flutter New onset atrial flutter Surgical History History of cataract surgery H/O: hysterectomy Family History Mother Cancer Diabetes Stroke Other Heart disease Denies family history of Ovarian cancer Prostate cancer Myocardial infarction Breast cancer Colorectal cancer Social History Smoking Status: Former smoker Second Hand Exposure: No; Do You Dip or Chew Tobacco: No; Hx Alcohol Use: No Hx Substance Use: No Preferred Language: Armenian Communication Ability: Effective Visual Impairment: No Limitations Hearing Ability: Normal Marking Clerk Required: No Beliefs That Will Affect Care: None marital status: Current Living Situation: Alone current occupational status: retired 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 Feels Safe at Home: Yes Childhood Exposure to Second-Hand Smoke: Yes Diet: regular caffeine: Yes Dental Care, Regularly: No Physical Activity Frequency: Does not Exercise Physical Activity Frequency Comment: Seatbelt Use: always Sunscreen Use: No Assistive Devices: Cane Physical Exam Constitutional: WD/WN, vitals as above Neck: trachea midline, no thyromegaly Respiratory: normal respiratory effort, lungs clear to auscultation Cardiovascular: RRR, no murmur, no edema Gastrointestinal (Abdomen): normal bowel sounds, soft, nontender, no hepatosplenomegaly Musculoskeletal: Extremities: extremities normal to inspection Results & Data Vital Signs (Past 12 Hours) Vital Signs Temp Pulse Pulse Resp BP BP Pulse Ox 09/13/23 09:58 73 09/13/23 08:05 36.8 C 96 H 16 146/69 H 97 09/13/23 03:40 36.6 C 103 H 18 179/75 H 94 09/13/23 03:00 68 18 133/70 94 09/13/23 02:00 90 20 163/84 H 95 09/13/23 01:00 86 22 175/92 H 98 09/13/23 00:00 85 18 154/81 H 99 09/12/23 23:28 64 09/12/23 23:17 36.5 C 83 18 158/73 H 98 O2 Del Method 09/13/23 09:58 09/13/23 08:05 Room Air 09/13/23 03:40 Room Air 09/13/23 03:00 09/13/23 02:00 09/13/23 01:00 09/13/23 00:00 09/12/23 23:28 09/12/23 23:17 Room Air Laboratory Results 09/13/23 09/13/23 09/13/23 Range/Units 08:27 05:37 05:29 WBC 6.89 (4.8-10.8) K/ul RBC 3.83 L (4.20-5.40) M/uL Hgb 10.9 L (12.0-16.0) g/dl Hct 34.0 L (37.0-47.0) % MCV 88.8 (80.0-100.0) fL MCH 28.5 (25.0-34.0) pg MCHC 32.1 (32.0-36.0) g/dL RDW Std Deviation 44.0 (36.4-46.3) fL RDW Coeff of Amando 13.5 (11.5-14.5) % Plt Count 176 (130-400) K/uL MPV 9.5 (9.4-12.4) fL Immature Gran % (Auto) 0.3 % Neut % (Auto) 65.0 % Lymph % (Auto) 22.2 % [place] % (Auto) 10.6 % Eos % (Auto) 1.5 % Baso % (Auto) 0.4 % Neut # (Auto) 4.48 (1.40-6.50) K/uL Lymph # (Auto) 1.53 (1.20-3.40) K/uL [place] # (Auto) 0.73 H (0.11-0.59) K/uL Eos # (Auto) 0.10 (0.00-0.50) K/uL Baso # (Auto) 0.03 (0.00-0.20) K/uL Immature Gran # (Auto) 0.02 (0.01-0.20) K/uL PT (9.0-12.0) Seconds INR (0.9-1.1) APTT (21-31) Seconds PTT Ratio Sodium 142 (136-145) mmol/L Potassium 4.0 Chloride 109 H (98-107) mmol/L Carbon Dioxide 25 (21-32) mmol/L Anion Gap 8 (3-11) BUN 19 (6-23) mg/dl Creatinine 0.70 (0.6-1.2) mg/dl Est Cr Clr Drug Dosing 57.3 ml/min Est GFR ( Amer) 89.7 ml/min Est GFR (Non-Af Amer) 77.4 ml/min BUN/Creatinine Ratio 27.1 H (10-20) Glucose 160 H (70-99(Fasting)) mg/dl POC Glucose 146 H 150 H (70-99) mg/dl Calcium 9.0 (8.6-10.3) mg/dl Total Bilirubin 0.3 (0.2-1.0) mg/dl AST 18 ALT 15 (7-52) U/L Alkaline Phosphatase 60 (34-104) U/L Troponin I High Sens (0-14) pg/ml Total Protein 6.0 (6.0-8.3) gm/dl Albumin 3.7 (3.4-5.0) gm/dl Globulin 2.3 L (2.5-4.0) gm/dl Albumin/Globulin Ratio 1.6 (0.9-2) 09/13/23 09/12/23 Range/Units 00:33 23:20 WBC 6.47 (4.8-10.8) K/ul RBC 3.94 L (4.20-5.40) M/uL Hgb 11.3 L (12.0-16.0) g/dl Hct 35.5 L (37.0-47.0) % MCV 90.1 (80.0-100.0) fL MCH 28.7 (25.0-34.0) pg MCHC 31.8 L (32.0-36.0) g/dL RDW Std Deviation 44.4 (36.4-46.3) fL RDW Coeff of Amando 13.5 (11.5-14.5) % Plt Count 193 (130-400) K/uL MPV 9.5 (9.4-12.4) fL Immature Gran % (Auto) % Neut % (Auto) % Lymph % (Auto) % [place] % (Auto) % Eos % (Auto) % Baso % (Auto) % Neut # (Auto) (1.40-6.50) K/uL Lymph # (Auto) (1.20-3.40) K/uL [place] # (Auto) (0.11-0.59) K/uL Eos # (Auto) (0.00-0.50) K/uL Baso # (Auto) (0.00-0.20) K/uL Immature Gran # (Auto) (0.01-0.20) K/uL PT 11.6 (9.0-12.0) Seconds INR 1.1 (0.9-1.1) APTT 31 (21-31) Seconds PTT Ratio 1.1 Sodium 139 (136-145) mmol/L Potassium 4.6 TNP Chloride 106 (98-107) mmol/L Carbon Dioxide 27 (21-32) mmol/L Anion Gap 6 (3-11) BUN 23 (6-23) mg/dl Creatinine 0.85 (0.6-1.2) mg/dl Est Cr Clr Drug Dosing 49.1 ml/min Est GFR ( Amer) 70.9 ml/min Est GFR (Non-Af Amer) 61.2 ml/min BUN/Creatinine Ratio 27.1 H (10-20) Glucose 133 H (70-99(Fasting)) mg/dl POC Glucose (70-99) mg/dl Calcium 9.1 (8.6-10.3) mg/dl Total Bilirubin 0.3 (0.2-1.0) mg/dl AST 24 TNP ALT 19 (7-52) U/L Alkaline Phosphatase 65 (34-104) U/L Troponin I High Sens 15.8 H (0-14) pg/ml Total Protein 6.6 (6.0-8.3) gm/dl Albumin 4.2 (3.4-5.0) gm/dl Globulin 2.4 L (2.5-4.0) gm/dl Albumin/Globulin Ratio 1.8 (0.9-2)
--- NOTE | 2023-09-13 13:58 | Discharge Summary ---
Date of Service September 13, 2023 Admission HPI Per Admitting Provider Halina Miller is a 88 year-old female with a past medical history of GERD, type 2 diabetes mellitus, hyperlipidemia, HTN, chronic venous insufficiency, paroxysmal atrial fibrillation. She presents due to concern of rectal bleeding- she recalls that in the morning on 09/11, she was straining to have a bowel movement and while wiping she noted blood on the toilet paper. She states she had another bowel movement in the evening with even more blood on the toilet paper, she is unsure of how much/if any blood was present in the toilet bowl. She denies any dizziness or lightheadedness. She notes she has hemorrhoids but denies ever having bleeding like this. She stake Xarelto every morning for her atrial fibrillation, states she took her last dose on the same morning as the rectal bleeding began. She reports living independently at home. ED Course: -CBC, PT/INR, CMP -EKG -Positive hemoccult Admission Exam Per Admitting Provider Constitutional: WD/WN, vitals as above Eyes: + anicteric sclerae; no conjunctival abn ormality ENMT: Ears: no external ear abnormality Nose: no external nose abnormality Moist mucous membranes Respiratory: normal respiratory effort, lungs clear to auscultation Cardiovascular: Rate/Rhythm: + irregularly irregular Extremities: + edema (pitting edema of bilateral lower extremities) Gastrointestinal (Abdomen): Inspection/Auscultation: abdomen normal to inspection; abdomen not distended Percussion/Palpation: abdomen soft; abdomen nontender Skin: no rashes, warm and dry Neurologic: no focal motor deficits Psychiatric: A+Ox3, euthymic affect Principal Diagnosis Rectal bleeding Discharge Exam Constitutional WD/WN, vitals as above Respiratory normal respiratory effort, lungs clear to auscultation Cardiovascular RRR, no murmur, no edema Gastrointestinal (Abdomen) normal bowel sounds, soft, nontender, no hepatosplenomegaly Skin no rashes, warm and dry Psychiatric A+Ox3, euthymic affect Discharge Data Allergies Allergy/AdvReac Type Severity Reaction Status Date / Time simvastatin AdvReac Intermediate DIZZINESS Verified 07/02/23 11:00 Consultations 09/13/23 01:38 ED Decision to Admit Stat 09/13/23 04:02 Consult Gastroenterology Routine Hospital Course (1) GERD (gastroesophageal reflux disease): (2) Anticoagulant long-term use: (3) Chronic venous insufficiency: (4) Diabetes mellitus, controlled: (5) Paroxysmal A-fib: (6) Venous stasis: (7) Rectal bleed: Finn Miller is a 88 year-old female with a past medical history of GERD, type 2 diabetes mellitus, hyperlipidemia, HTN, chronic venous insufficiency, paroxysmal atrial fibrillation, presented with rectal bleeding: #Rectal Bleed: Hgb 11.3 on arrival, repeat Hgb 10.9 - review of prior labs with baseline ~13, patient asymptomatic GI consulted, agreed that this is not a GI bleed, more likely bleeding due to hemorrhoids or irritation from hard stool Per GI, recommend cautiously restarting Xarelto Consider bowel regimen ie: daily Miralax if constipation continues to be an issue moving forward #Paroxysmal AFib: Xarelto held in the setting of concern for potential GI bleed, recommend holding until follow up with PCP Per GI, recommend cautiously restarting Xarelto at discretion of PCP DM2: Resume home meds HTN: Resume home meds Total Time Total Time Spent Total Time Spent (In Minutes): see attending attestation Discharge Plan Discharge Items Patient Disposition: Home - Self-Care Reason For Visit: RECTAL BLEED Discharge Diagnosis: Rectal bleed Activity: Resume your previous activity Non-emergency contact: Primary Care Provider Call non-emergency contact if: your symptoms worsen Follow-up/Referrals: Ariadna Martinez CRNP [Primary Care Provider] - 09/18/23 2:00 pm Diet: Carb Consistent or DM2 Addtl Attending Provider Instructions: You were admitted to the hospital due to rectal bleeding: During your hospital stay, you were seen by a senior boiler operator, who agreed that your bleeding is most likely from hemorrhoids or irritation from hard stool. Moving forward, it is important that you keep your stools soft and regular. If this is an ongoing issue, we recommend using a stool softener such as Miralax on an as needed basis to prevent constipation. From our assessment, there is no need for further GI workup at this time, but please follow up with your primary care provider as soon as possible. Until you see your PCP, please continue to hold on taking your Xarelto. Your PCP will determine when this can be safely resumed. A discharge summary will be sent to your primary care physician to ensure jaime nuity of care. Please bring this discharge summary with you to your next office appointment so that your provider can review it at that time. Medications: Your medication list has been reviewed and reconciled upon discharge to ensure accuracy and continuity of care. An updated list of all your medications is included with your hospital discharge paperwork. Please review this list closely and make note of any changes to your medications. As stated above, please hold on taking Xarelto until you see your PCP. Follow up appointments: - Make a follow up appointment with your PCP within the next week. It is very important that you follow up with them shortly after discharge from the hospital. - Keep all of your follow up appointments as already scheduled. If you cannot make an appointment, notify your provider. CONTACT YOUR PRIMARY CARE PROVIDER if you experience any of the following: - Difficulty following your treatment plan - Difficulty taking any of your medications CALL 911 OR GO TO THE EMERGENCY DEPARTMENT if you experience any of the following: - Sudden, severe abdominal pain or nausea/vomiting - Severe chest pain or chest pain that radiates to your jaw or arm - Sudden, severe shortness of breath or difficulty breathing Pending Studies at Discharge: No Stand-Alone Forms: [facility] swiftQueue, Smoking Cessation Medications and DC Order Prescriptions: Continued metoprolol tartrate 25 mg tablet 25 mg PO BID Qty: 180 3RF lisinopril [Zestril] 40 mg tablet 40 mg PO DAILY Qty: 90 3RF metformin 500 mg tablet extended release 24 hr 500 mg PO BID Qty: 180 3RF (DME) blood sugar diagnostic Strip See Dose Instructions .ROUTE .MEDSUPPLY Qty: 100 5RF Dose Instruction: As directed Rx Instructions: use to test BID and PRN albuterol sulfate 90 mcg/actuation HFA aerosol inhaler 2 puff inhalation Q6H PRN (Reason: shortness of breath or wheezing) Qty: 8.5 5RF amlodipine 10 mg tablet 10 mg PO QAM Qty: 90 3RF Rx Instructions: Take 1 tab daily pravastatin 20 mg tablet 20 mg PO HS Qty: 90 3RF glimepiride 1 mg tablet 1 mg PO QDB Qty: 90 3RF Rx Instructions: 1 mg PO daily with breakfast for blood sugar ; administer with breakfast torsemide 20 mg tablet 20 mg PO DAILY Qty: 30 9RF docusate sodium 100 mg capsule 100 mg PO QAM polyethylene glycol 3350 17 gram/dose powder 17 gm PO DAILY PRN (Reason: Constipation) fluticasone propionate 110 mcg/actuation HFA aerosol inhaler 1 puff INHALATION BID Held rivaroxaban 20 mg tablet 20 mg PO QAM Qty: 90 3RF Hold Instructions: Resume on 09/20/23. Hold until you are seen by your PCP, they can help determine when it may be appropriate to resume Discharge Orders: Discharge Order (Routine); Ordered 09/13/23 Ordered By: Jamal Marquez Admission Data Admit Date/Time: 09/13/23 02:07 Attending Provider: Rosalie Hoskins Admit Provider: Margareth Swann Primary Care Provider: Ariadna Martinez Other Providers: Ghulam Thorne; Aleyda Lanza Jr Other Interventions: Discharge Summary Assessment (RN) Last Done: 09/13/23 13:38 Supervising Physician Co-Signing Physician Notes Attending Physician Supervision Note: I independently interviewed and examined the patient and verified the means history and physical, reviewed labs and image studies and agree with findings and care plan noted above. Resident Activity Tracking Resident Involvement: Resident Care Provided Care Provided: Adult Hospital Medicine
--- NOTE | 2023-09-13 21:41 | Billing Data ---
Date of Service September 13, 2023 Coding Level of Care Code 88815 INT INP/OBS CARE
== END 2023-09-13 15:00 | disposition home or self-care (01) ==
LOC: 2N 23:10 → ED 23:10 → SUATTDRO 09-13 02:07 → 2N 09-13 03:18

== ENCOUNTER 2024-06-02 18:09 | Inpatient (IN) ==
[2024-06-02 18:33] LABS: iSTAT Creatinine 2.4 mg/dl (0.6-1.3); iSTAT Hemoglobin 10.2 g/dl (12.0-16.0); iSTAT Ionized Calcium 1.11 mmol/l (1.12-1.32); iSTAT Potassium 4.5 mmol/L (3.3-5.0)
[2024-06-02 18:34] LABS: Basophils # (auto) 0.01 K/uL (0.00-0.20); Hematocrit (blood only) 29.3 % (37.0-47.0); Hemoglobin 9.7 g/dl (12.0-16.0); Immature Granulocytes # (auto) 0.15 K/uL (0.01-0.20); Immature Granulocytes % (auto) 0.7 %; Mean Corpuscular Hemoglobin 28.9 pg (25.0-34.0); Mean Corpuscular Hgb Conc 33.1 g/dL (32.0-36.0); Mean Corpuscular Volume 87.2 fL (80.0-100.0); Mean Platelet Volume 10.2 fL (9.4-12.4); Monocytes # (auto) 2.03 K/uL (0.11-0.59); Monocytes % (auto) 9.4 %; Neutrophils % (auto) 82.9 %; Platelet Count 222 K/uL (130-400); RDW Coefficient of Variation 14.3 % (11.5-14.5); RDW Standard Deviation 45.1 fL (36.4-46.3); Red Blood Count 3.36 M/uL (4.20-5.40); White Blood Count 21.49 K/ul (4.8-10.8)
--- NOTE | 2024-06-02 18:41 | Emergency Department Note ---
History of Present Illness General Chief complaint: Trauma Stated complaint: FALL Time Seen by Provider: 06/02/24 18:14 History of Present Illness Provider complaint: Fall 88-year-old female presents emergency department for fall. Reportedly the patient fell yesterday in her garage. She lied in the garage all night and was able to crawl in the house where she was discovered by family on the floor. Patient is reporting pain in her right hip. Home Medications Medication Instructions Recorded Confirmed Type docusate sodium 100 mg capsule 100 mg PO QAM 05/13/19 06/02/24 History polyethylene glycol 3350 17 17 gm PO DAILY PRN Constipation 05/13/19 06/02/24 History gram/dose oral powder albuterol sulfate 90 mcg/actuation 2 puff inhalation Q6H PRN 06/09/23 06/02/24 Rx aerosol inhaler shortness of breath or wheezing #8.5 grams torsemide 20 mg tablet 20 mg PO DAILY #30 tabs 07/02/23 06/02/24 Rx amlodipine 10 mg tablet 10 mg PO QAM #90 tabs 07/17/23 06/02/24 Rx glimepiride 1 mg tablet 1 mg PO QDB #90 tabs 08/20/23 06/02/24 Rx pravastatin 20 mg tablet 20 mg PO HS #90 tabs 08/20/23 06/02/24 Rx fluticasone propionate 110 1 puff inhalation BID 09/12/23 06/02/24 History mcg/actuation HFA aerosol inhaler rivaroxaban 15 mg tablet (Xarelto) 15 mg PO DAILY #90 tabs 09/18/23 06/02/24 Rx lisinopril 40 mg tablet (Zestril) 40 mg PO DAILY #90 tabs 11/26/23 06/02/24 Rx metformin 500 mg tablet,extended 500 mg PO BID #180 tabs 12/04/23 06/02/24 Rx release 24 hr blood sugar diagnostic #100 ea 01/12/24 06/02/24 Rx metoprolol tartrate 25 mg tablet 25 mg PO BID 06/02/24 06/02/24 History Allergies Allergy/AdvReac Type Severity Reaction Status Date / Time simvastatin AdvReac Intermediate DIZZINESS Verified 05/18/24 10:01 Past Med/Surg History Problem List (Updated 06/02/24 @ 21:10 by Jamal Mccoy MD) JAYLAN (acute kidney injury) (Acute) Rhabdomyolysis (Acute) Closed hip fracture (Acute) Rectal bleed Degenerative joint disease of cervical spine Pulmonary nodules GERD (gastroesophageal reflux disease) Anticoagulant long-term use (Acute) Edema Chronic venous insufficiency (Acute) Diabetes mellitus, controlled (Acute) History of malignant neoplasm of endometrium (Acute) Hypergammaglobulinemia (Acute) Venous stasis (Acute) Tinnitus Hypercholesteremia Short-term memory loss Hypertension (Acute) Osteoarthritis Asthma Anemia Paroxysmal A-fib Medical History Cataract Left shoulder strain Contusion of left upper extremity Vaginal bleeding New onset atrial flutter New onset atrial flutter Surgical History History of cataract surgery H/O: hysterectomy Family History Mother Cancer Diabetes Stroke Other Heart disease Denies family history of Ovarian cancer Prostate cancer Myocardial infarction Breast cancer Colorectal cancer Social History Smoking Status: Former smoker Second Hand Exposure: No; Do You Dip or Chew Tobacco: No; Hx Alcohol Use: No Hx Substance Use: No Preferred Language: Afghan Communication Ability: Effective Visual Impairment: No Limitations Hearing Ability: Normal 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: No Beliefs That Will Affect Care: None marital status: Current Living Situation: Alone current occupational status: retired 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 Feels Safe at Home: Yes Childhood Exposure to Second-Hand Smoke: Yes Diet: regular caffeine: Yes Dental Care, Regularly: No Physical Activity Frequency: Does not Exercise Physical Activity Frequency Comment: Seatbelt Use: always Sunscreen Use: No Assistive Devices: Cane Physical Exam Vital Signs Vital Signs - 24 hr 06/02/24 18:29 06/02/24 18:42 06/02/24 18:42 Temperature Temperature Source Pulse Rate 112 H Pulse Rate [Apical] Pulse Rate from SpO2 Sensor Pulse Rhythm Pulse Rhythm [Apical] Pulse Strength Pulse Strength [Apical] Respiratory Rate Respiratory Effort / Characteristics Respiratory Depth Respiratory Pattern Blood Pressure 132/65 132/65 Blood Pressure [Left Arm] Blood Pressure Mean 105 105 Blood Pressure Mean [Left Arm] Blood Pressure Position Blood Pressure Position [Left Arm] Pulse Oximetry Oxygen Delivery Method Sepsis Recent Fever Within 48 Hours Sepsis New/Unexplained Change in Mental Status Sepsis Action Taken by Nursing 06/02/24 18:44 06/02/24 18:44 06/02/24 18:44 Temperature 37.0 C 37.0 C Temperature Source Oral Pulse Rate 112 H Pulse Rate [Apical] 106 H Pulse Rate from SpO2 Sensor Pulse Rhythm Pulse Rhythm [Apical] Regular Pulse Strength Pulse Strength [Apical] Normal Respiratory Rate 22 18 Respiratory Effort / Characteristics Non-Labored Spontaneous Respiratory Depth Normal Respiratory Pattern Regular Blood Pressure 132/65 Blood Pressure [Left Arm] 126/69 Blood Pressure Mean Blood Pressure Mean [Left Arm] 88 Blood Pressure Position Blood Pressure Position [Left Arm] Lying Pulse Oximetry 98 99 99 Oxygen Delivery Method Room Air Room Air Room Air Sepsis Recent Fever Within 48 Hours Sepsis New/Unexplained Change in Mental Status Sepsis Action Taken by Nursing 06/02/24 18:45 06/02/24 18:45 06/02/24 18:45 Temperature 37.0 C Temperature Source Oral Pulse Rate 108 H 99 H Pulse Rate [Apical] Pulse Rate from SpO2 Sensor 105 H Pulse Rhythm Regular Pulse Rhythm [Apical] Pulse Strength Normal Pulse Strength [Apical] Respiratory Rate 22 22 Respiratory Effort / Characteristics Non-Labored Spontaneous Respiratory Depth Normal Respiratory Pattern Regular Blood Pressure 131/99 126/69 Blood Pressure [Left Arm] Blood Pressure Mean 109 88 Blood Pressure Mean [Left Arm] Blood Pressure Position Lying Blood Pressure Position [Left Arm] Pulse Oximetry 99 100 Oxygen Delivery Method Room Air Sepsis Recent Fever Within 48 Hours No Sepsis New/Unexplained Change in Mental Status No Sepsis Action Taken by Nursing No Action Required 06/02/24 18:45 06/02/24 18:45 06/02/24 19:12 Temperature Temperature Source Pulse Rate 108 H Pulse Rate [Apical] Pulse Rate from SpO2 Sensor 108 H Pulse Rhythm Pulse Rhythm [Apical] Pulse Strength Pulse Strength [Apical] Respiratory Rate 26 H Respiratory Effort / Characteristics Respiratory Depth Respiratory Pattern Blood Pressure 126/69 126/69 Blood Pressure [Left Arm] Blood Pressure Mean 88 88 Blood Pressure Mean [Left Arm] Blood Pressure Position Blood Pressure Position [Left Arm] Pulse Oximetry 98 Oxygen Delivery Method Sepsis Recent Fever Within 48 Hours Sepsis New/Unexplained Change in Mental Status Sepsis Action Taken by Nursing 06/02/24 19:15 06/02/24 19:15 06/02/24 19:18 Temperature Temperature Source Pulse Rate 97 H 106 H Pulse Rate [Apical] Pulse Rate from SpO2 Sensor 102 H 103 H Pulse Rhythm Pulse Rhythm [Apical] Pulse Strength Pulse Strength [Apical] Respiratory Rate 21 18 Respiratory Effort / Characteristics Respiratory Depth Respiratory Pattern Blood Pressure 99/59 L Blood Pressure [Left Arm] Blood Pressure Mean 84 Blood Pressure Mean [Left Arm] Blood Pressure Position Blood Pressure Position [Left Arm] Pulse Oximetry 96 96 Oxygen Delivery Method Sepsis Recent Fever Within 48 Hours Sepsis New/Unexplained Change in Mental Status Sepsis Action Taken by Nursing 06/02/24 19:22 06/02/24 19:30 06/02/24 19:30 Temperature Temperature Source Pulse Rate Pulse Rate [Apical] 100 H Pulse Rate from SpO2 Sensor Pulse Rhythm Pulse Rhythm [Apical] Pulse Strength Pulse Strength [Apical] Respiratory Rate 16 Respiratory Effort / Characteristics Non-Labored Spontaneous Respiratory Depth Normal Respiratory Pattern Blood Pressure 107/57 L 107/57 L Blood Pressure [Left Arm] 99/59 L Blood Pressure Mean 75 75 Blood Pressure Mean [Left Arm] 72 Blood Pressure Position Blood Pressure Position [Left Arm] Lying Pulse Oximetry 97 Oxygen Delivery Method Room Air Sepsis Recent Fever Within 48 Hours Sepsis New/Unexplained Change in Mental Status Sepsis Action Taken by Nursing 06/02/24 19:42 06/02/24 19:45 06/02/24 19:45 Temperature Temperature Source Pulse Rate 94 H Pulse Rate [Apical] Pulse Rate from SpO2 Sensor 97 H Pulse Rhythm Pulse Rhythm [Apical] Pulse Strength Pulse Strength [Apical] Respiratory Rate 16 Respiratory Effort / Characteristics Respiratory Depth Respiratory Pattern Blood Pressure 112/71 112/71 Blood Pressure [Left Arm] Blood Pressure Mean 89 89 Blood Pressure Mean [Left Arm] Blood Pressure Position Blood Pressure Position [Left Arm] Pulse Oximetry 97 Oxygen Delivery Method Sepsis Recent Fever Within 48 Hours Sepsis New/Unexplained Change in Mental Status Sepsis Action Taken by Nursing 06/02/24 20:03 06/02/24 20:12 06/02/24 20:14 Temperature Temperature Source Pulse Rate 100 H Pulse Rate [Apical] 98 H Pulse Rate from SpO2 Sensor 99 H Pulse Rhythm Pulse Rhythm [Apical] Regular Pulse Strength Pulse Strength [Apical] Normal Respiratory Rate 19 16 Respiratory Effort / Characteristics Non-Labored Respiratory Depth Normal Respiratory Pattern Regular Blood Pressure 120/62 Blood Pressure [Left Arm] 120/62 Blood Pressure Mean 100 Blood Pressure Mean [Left Arm] 81 Blood Pressure Position Blood Pressure Position [Left Arm] Lying Pulse Oximetry 95 98 Oxygen Delivery Method Room Air Sepsis Recent Fever Within 48 Hours Sepsis New/Unexplained Change in Mental Status Sepsis Action Taken by Nursing Physical Exam GENERAL: Ill-appearing. Patient smells of urine. HENT: Exam performed. -Head: Normocephalic and atraumatic. -Mouth/Throat: Dry mucous membranes. EYES: Conjunctivae and EOM are normal. Pupils are equal, round, and reactive to light. Right eye exhibits no discharge. Left eye exhibits no discharge. No scleral icterus. NECK: Patient in c-collar. CV: Normal rate, regular rhythm, normal heart sounds and intact distal pulses. There is no peripheral edema. Palpable radial pulses bue. PULM/CHEST: Effort normal and breath sounds normal. No respiratory distress. No stridor. She has no wheezes. She has no rales. -Chest Wall: She exhibits no tenderness. No crepitus bilaterally. ABD: The abdomen is soft. There is no tenderness. There is no rebound, no guarding, no Taveras's sign and no tenderness at McBurney's point. Rovsig negative MUSC/SKEL: Pain on palpation of right hip. Right lower extremity is shortened and externally rotated. NEURO: Motor and sensation grossly intact. Course Course 1813: The patient was evaluated in room A1. A complete history and physical exam was performed Cardiac monitoring: An order was placed for continuous cardiac monitoring. The monitor shows a rate of 110 with sinus rhythm interpreted by dc Trauma alert activated. Clinically patient appears to have right-sided hip fracture. 1824: [id number] i-STAT creatinine 2.3. Skin was changed without contrast. 1944: Vital signs stable. Imaging confirms right-sided hip fracture. No other traumatic injuries. Labs show white blood cell count 21.49. Thought to be reactive to secondary trauma. Creatinine 2.2. CK greater than 2000. IV fluids started the patient. Patient will be admitted to the medicine team with orthopedics on consult. 2025: BEN Rivas for Dr. Linn states to keep patient n.p.o. after midnight. Administered Medications Sodium Chloride (Nss) 1,000 mls @ 125 mls/hr IV .Q8H PEYMAN Stop: 06/03/24 19:14 Last Admin: 06/02/24 19:07 Dose: 125 mls/hr Documented By: MEHREEN Morphine Sulfate (Morphine Sulfate 4 Mg/Ml 1 Ml Carp\Vial) 4 mg IV Q1H PRN PRN Reason: Severe Pain (Rating 7,8,9,10) Stop: 06/16/24 18:13 Last Admin: 06/02/24 18:58 Dose: 4 mg Documented By: Discontinued Medications Sodium Chloride (Nss) 1,000 mls @ 999 mls/hr IV .Q1H1M ONE Stop: 06/02/24 20:09 Last Infusion: 06/02/24 20:30 Dose: Infused Documented By: Admin: 06/02/24 19:20 Dose: 999 mls/hr Documented By: MEHREEN Critical Care Time Critical Care Time: Yes Total Critical Care Time: 70 I have personally spent greater than 70 minutes of critical care time in the direct management of this patient. This includes bedside care, interpretation of diagnostic studies, and testing, discussion with consultants, patient, and family members, and other required patient management activities. This 70 minutes is in excess of all separately billable procedures. Medical Decision Making Laboratory Data Attestation: I reviewed the patient's lab results. 06/02/24 18:17 06/02/24 18:17 Lab Results 06/02/24 06/02/24 06/02/24 Range/Units 18:17 18:21 19:08 WBC 21.49 H (4.8-10.8) K/ul RBC 3.36 L (4.20-5.40) M/uL Hgb 9.7 L (12.0-16.0) g/dl POC Hgb 10.2 L (12.0-16.0) g/dl Hct 29.3 L (37.0-47.0) % POC Hct 30 L (37-47) % MCV 87.2 (80.0-100.0) fL MCH 28.9 (25.0-34.0) pg MCHC 33.1 (32.0-36.0) g/dL RDW Std Deviation 45.1 (36.4-46.3) fL RDW Coeff of Amando 14.3 (11.5-14.5) % Plt Count 222 (130-400) K/uL MPV 10.2 (9.4-12.4) fL Immature Gran % (Auto) 0.7 % Neut % (Auto) 82.9 % Lymph % (Auto) 7.0 % [place] % (Auto) 9.4 % Eos % (Auto) 0.0 % Baso % (Auto) 0.0 % Neut # (Auto) 17.80 H (1.40-6.50) K/uL Lymph # (Auto) 1.50 (1.20-3.40) K/uL [place] # (Auto) 2.03 H (0.11-0.59) K/uL Eos # (Auto) 0.00 (0.00-0.50) K/uL Baso # (Auto) 0.01 (0.00-0.20) K/uL Immature Gran # (Auto) 0.15 (0.01-0.20) K/uL PT 11.4 (9.0-12.0) Seconds INR 1.1 (0.9-1.1) APTT 25 (21-31) Seconds PTT Ratio 0.9 POC Sodium 140 (135-144) mmol/L Sodium 145 (136-145) mmol/L POC Potassium 4.5 (3.3-5.0) mmol/L Potassium 4.6 (3.5-5.1) mmol/L POC Chloride 105 (101-112) mmol/L Chloride 106 (98-107) mmol/L Carbon Dioxide 23 (21-32) mmol/L POC Total CO2 20 L (24-31) mmol/L Anion Gap 16 H (3-11) POC Anion Gap 21.0 (16-25) mmol/L POC BUN 42 H (7-18) mg/dl BUN 49 H (6-23) mg/dl Creatinine 2.20 H (0.6-1.2) mg/dl POC Creatinine 2.4 H (0.6-1.3) mg/dl Est Cr Clr Drug Dosing Not Reportable eGFR 21.04 BUN/Creatinine Ratio 22.3 H (10-20) Glucose 253 H (70-99(Fasting)) mg/dl POC Glucose (other) 240 H (70-99) mg/dl Calcium 9.3 (8.6-10.3) mg/dl POC Ioniz Calcium Amber 1.11 L (1.12-1.32) mmol/l Total Bilirubin 0.5 (0.2-1.0) mg/dl AST 76 H (13-39) U/L ALT 31 (7-52) U/L Alkaline Phosphatase 55 (34-104) U/L Total Creatine Kinase 2126 H (26-192) U/L Total Protein 6.3 (6.0-8.3) gm/dl Albumin 3.8 (3.4-5.0) gm/dl Globulin 2.5 (2.5-4.0) gm/dl Albumin/Globulin Ratio 1.5 (0.9-2) Urine Color Dark Yellow Urine Appearance Clear (Clear) Urine pH 5.0 (4.5-7.5) Ur Specific Hinckley 1.013 (1.000-1.030) Urine Protein Negative (Negative) Urine Glucose (UA) Negative (Negative) Urine Ketones Trace H (Negative) Urine Blood Negative (Negative) Urine Nitrite Negative (Negative) Urine Bilirubin Negative (Negative) Urine Urobilinogen Negative (Negative) Ur Leukocyte Esterase Trace H (Negative) Urine WBC (Auto) 0-5 (0-5) /hpf Urine RBC (Auto) 0-2 (0-2) /hpf U Hyaline Cast (Auto) 6-10 H (0-2) /lpf U Epithel Cells (Auto) 0-2 (0-2) /hpf Urine Bacteria (Auto) None Seen (None Seen) Imaging Data Attestation: I personally reviewed and interpreted this imaging study as follows: My Impression: Pelvis x-ray: Right-sided hip fracture Chest x-ray: No pneumothorax CT head: No ICH Radiologist's Impression: Chest X-Ray 06/02/24 18:14 EXAM: XR chest 1V portable CLINICAL HISTORY: FALL CLW/MRN TECHNIQUE: An X-ray image of the chest is obtained in AP projection. COMPARISON: 12/09/2022. FINDINGS: Pulmonary Parenchyma: Lungs are clear bilaterally. No evidence of consolidation, collapse, or focal opacities. No pulmonary nodules are identified. No evidence of pleural effusion or pleural thickening. Heart and Mediastinum: Heart size and shape are normal. No mediastinal widening or masses. No hilar or mediastinal lymphadenopathy. Aaortic knuckle concentric atherosclerotic calcifications. Bony Thorax: Bony thorax appears intact without fractures or deformities. Soft Tissues: Soft tissues overlying the chest wall are unremarkable. IMPRESSION: 1. No acute cardiopulmonary abnormalities are identified. 2. Aaortic knuckle concentric atherosclerotic calcifications. Electronically signed by Jose Rafael Estrella 06-02-2024 7:[address] 06/02/24 18:15 EXAM: CT cervical spine wo con CLINICAL HISTORY: s/p fall PW/GS/EB TECHNIQUE: A CT scan of the cervical spine was performed without the administration of intravenous contrast. Contiguous axial images were obtained from the skull base to the upper thoracic spine. Coronal and sagittal reformatted images were also reviewed. One of the following dose reduction techniques was utilized for this exam. Automated exposure control, adjustment of the mA and/or kV according to patient size, and use of iterative reconstruction. COMPARISON: Xray of cervical spine dated 05/01/2022 FINDINGS: Vertebrae: No fracture was noted. Grade 1 anterolisthesis of C7 over T1 is likely of degenerative causes. Average sagittal diameter of the cervical canal. Marked Spondylodegenerative changes with marginal osteophytes and reduced height of the scanned discs most appreciated C5-C6 and C6-C7 disc spaces. Multi-level disc herniation/bulge with posterior osteophyte is seen effacing the anterior subarachnoid space and just abutting the corresponding aspect of the cord, partially encroaching upon the neural canal most prominent at C5/C6. Moderate facetal and neurocentral joint osteoarthritic changes are most appreciated at lower cervical levels. No abnormal paravertebral soft tissue masses are seen. Atlantoaxial mild osteoarthritic changes Prevertebral Soft Tissues: The prevertebral soft tissues are normal in thickness without evidence of mass or abnormal fluid collection. Additional Findings: Bilateral hypodense thyroid nodules for further assessment by dedicated thyroid US. Bilateral common carotid arteries atherosclerotic mural calcification with left-sided partially calcified mural plaque. Suggest further assessment by CTA/Doppler. IMPRESSION: 1. No evidence of acute fracture. 2. Grade 1 anterorlisthesis of C7 over T1. 3. 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 Suggest further assessment by MRI if clinically warranted. 4. Atlantoaxial mild osteoarthritic changes. 5. Bilateral hypodense thyroid nodules. Suggest further assessment by dedicated thyroid US. 6. Bilateral common carotid arteries atherosclerotic mural calcification with left sided partially calcified mural plaque. Suggest further assessment by CTA/Doppler. 7. Findings compatible with prior Xray. Electronically signed by Jose Rafael Estrella 06-02-2024 7:37 PM Femur X-Ray 06/02/24 18:15 EXAM: XR femur RT 2V routine CLINICAL HISTORY: FALL CLW/MRN TECHNIQUE: X-ray images of the right femur were obtained in anteroposterior (AP) and lateral projections. COMPARISON: 09/20/2016 FINDINGS: Bone Structure: Comminuted intertrochanteric fracture of the right femur with displaced bone fragments, and secondary coxa vara. No underlying bone lesion identified. Marked osteoarthritic changes of the right knee joint. Joint and Articular Surfaces: Joint spaces in the visualized hip joint are preserved, with no significant narrowing, osteophyte formation, or subchondral sclerosis. Visualized articular surfaces of the femoral head are smooth and regular, without any signs of irregularity, osteophyte formation, or erosion. Soft Tissues: No calcifications, or masses. No evidence of infection, or inflammatory processes observed. IMPRESSION: 1. Comminuted intertrochanteric fracture of the right femur with displaced bone fragments, and secondary coxa vara. (New). 2. Marked osteoarthritic changes of the right knee joint. (slightly progressed). Disclaimer: A subtle bone abnormality or fracture may not be readily apparent on X-rays. Clinical correlation and further imaging, including CT, MRI, or follow-up X-rays, are advised if clinically warranted. [facility] was called at [phone] at 6:32 PM HOGSHEAD COOPER, 06/02/2024 and Alma (Nurse) was informed regarding the presence of significant medical findings in the report. Electronically signed by Jose Rafael Estrella 06-02-2024 7:[address] 06/02/24 18:15 EXAM: CT head/brain wo con CLINICAL HISTORY: s/p fall PW/GS/EB TECHNIQUE: Axial non-contrast CT scan of the brain was performed from the skull base to the high parietal region. One of the following dose reduction techniques were utilized for this exam: Automated exposure control, adjustment of the mA and/or kV according to patient size, use of iterative reconstruction, DLP: 2238.39 mGy-cm. COMPARISON: CT head/brain wo con date06/18/2020 FINDINGS: Brain Parenchyma: No acute intra-axial or extra-axial hemoarrge No evidence of acute infarct, or mass effect. Bilateral increased deep white matter hypodensity with small ill-defined hypodense area suggestive of small vessel disease Brain involutional changes in the form of widened extra-axial CSF spaces Ventricular System: No evidence of hydrocephalus Subarachnoid Spaces: No evidence of subarachnoid hemorrhage or extra-axial fluid collections. Cerebellum and Brainstem: Normal size and signal. No masses, lesions, or areas of abnormal signal. Orbits: Normal appearance of the globes, optic nerves, and extraocular muscles. No evidence of orbital masses or abnormal signal. Sinuses: Clear paranasal sinuses. No evidence of sinusitis or mucosal thickening. Mastoid Air Cells: Clear mastoid air cells. No evidence of mastoiditis. Skull and Meninges: Normal skull morphology. No fracture line IMPRESSION: 1. No acute intracranial abnormalities 2. Microvascular ischemic changes and senile changes. 3. No significant time interval changes Electronically signed by Jose Rafael Estrella 06-02-2024 7:31 PM Abdomen/Pelvis CT 06/02/24 18:24 EXAM: CT abd pelvis wo con CLINICAL HISTORY: s/p fall PW/GS/EB TECHNIQUE: Non-contrast CT of the abdomen and pelvis was performed, with the following protocol: axial images, and reconstructed coronal and sagittal images. No intravenous contrast was administered. One of the following dose reduction techniques was utilized for this exam: Automated exposure control, adjustment of the mA and/or kV according to patient size, and use of iterative reconstruction. COMPARISON: Ct dated 01/02/2023 FINDINGS: Abdomen: Liver: Normal in size, shape, and density. Few small hypodense focal lesions measuring up to 1 cm. Gallbladder and Biliary System: The gallbladder is normal in size and shape. No wall thickening, pericholecystic fluid, or gallstones were identified. Pancreas: Pancreatic head, body, and tail are visualized and appear normal in size and density. No pancreatic masses or calcifications were noted. Spleen: Normal in size, shape, and density. No splenic lesions or masses were identified. Kidneys and Adrenal Glands: Both kidneys are normal in size, shape, and position. Cortical thickness is within normal limits. No renal calculi or hydronephrosis. Left upper zone 2.7 cm hypodense lesion likely cyst. Adrenal glands are unremarkable. Appendix not visualized. Pelvis: Urinary Bladder: Normal in contour and wall thickness. No intraluminal lesions. Uterus: Not visualized likely excised. Vagina: Normal in contour and wall thickness. Peritoneal and Retroperitoneal Structures: No free fluid or abnormal fluid collections were identified within the abdomen or pelvis. No lymphadenopathy was noted. Bowel: Looping of the ascending colon with rotate cecum. Colonic diverticulosis without diverticulitis. The visualized bowel loops are normal in caliber and appearance. No evidence of bowel obstruction or wall thickening. Bones and Soft Tissues: Fractured right femoral neck with avulsed lesser trochanter and soft tissue edema of the right upper thigh. Degenerative changes of the spine and sacroiliac joints and symphysis pubis. Vascular calcifications of the aorta and its branches with suspected bilateral renal artery stenosis. IMPRESSION: 1. Stable hepatic hypodense lesions likely cysts. 2. Stable left renal cortical cyst. 3. Stable colonic diverticulosis. 4. Hysterctomy, correlate with operative history. 5. Extensive athrosclerosis. 6. New right femoral neck fracture with moderate displacement and soft tissue edema [facility] [employer] [facility] was called at [phone] at 6:32 PM HOGSHEAD COOPER, 06/02/2024 and Alma (Nurse) was informed regarding the presence of significant medical findings in the report. Electronically signed by Jose Rafael Estrella 06-02-2024 7:35 PM MDM Narrative 1814: The patient was evaluated in room A1. A complete history and physical exam was performed Cardiac monitoring: An order was placed for continuous cardiac monitoring. The monitor shows a rate of 110 with sinus rhythm interpreted by dc Trauma alert activated. Clinically patient appears to have right-sided hip fracture. 1825: [id number] i-STAT creatinine 2.3. Skin was changed without contrast. 5: Vital signs stable. Imaging confirms right-sided hip fracture. No other traumatic injuries. Labs show white blood cell count 21.49. Thought to be reactive to secondary trauma. Creatinine 2.2. CK greater than 2000. IV fluids started the patient. Patient will be admitted to the medicine team with orthopedics on consult. Impression & Plan Closed hip fracture, Rhabdomyolysis, JAYLAN (acute kidney injury) Discharge Plan Visit Data Chief Complaint: Trauma Stated Complaint: FALL ED Provider: Jamal Mccoy Discharge Problem: Closed hip fracture, Rhabdomyolysis, JAYLAN (acute kidney injury) Patient Disposition: Admitted As Inpatient Forms Stand Alone Forms: [employer] Prescriptions Prescriptions: No Action albuterol sulfate 90 mcg/actuation HFA aerosol inhaler 2 puff inhalation Q6H PRN (Reason: shortness of breath or wheezing) Qty: 8.5 5RF amlodipine 10 mg tablet 10 mg PO QAM Qty: 90 3RF Rx Instructions: Take 1 tab daily pravastatin 20 mg tablet 20 mg PO HS Qty: 90 3RF glimepiride 1 mg tablet 1 mg PO QDB Qty: 90 3RF Rx Instructions: 1 mg PO daily with breakfast for blood sugar ; administer with breakfast Xarelto 15 mg tablet 15 mg PO DAILY Qty: 90 3RF Rx Instructions: must administer with evening meal lisinopril [Zestril] 40 mg tablet 40 mg PO DAILY Qty: 90 3RF metformin 500 mg tablet extended release 24 hr 500 mg PO BID Qty: 180 3RF (DME) blood sugar diagnostic Strip See Dose Instructions .ROUTE .MEDSUPPLY Qty: 100 5RF Dose Instruction: As directed Rx Instructions: use to test BID and PRN torsemide 20 mg tablet 20 mg PO DAILY Qty: 30 9RF docusate sodium 100 mg capsule 100 mg PO QAM polyethylene glycol 3350 17 gram/dose powder 17 gm PO DAILY PRN (Reason: Constipation) fluticasone propionate 110 mcg/actuation HFA aerosol inhaler 1 puff INHALATION BID metoprolol tartrate 25 mg tablet 25 mg PO BID Rx Instructions: TAKE 1 TABLET BY MOUTH TWICE DAILY Referrals Referrals: Ariadna Martinez CRNP [Primary Care Provider] - Discharge Problem: Closed hip fracture Qualifiers: Encounter type: initial encounter Laterality: right Qualified Code(s): S72.001A - Fracture of unspecified part of neck of right femur, initial encounter for closed fracture
[2024-06-02 18:48] LABS: Anion Gap 16 (3-11); BUN Creatinine Ratio 22.3 (10-20); Blood Urea Nitrogen 49 mg/dl (6-23); Calcium 9.3 mg/dl (8.6-10.3); Carbon Dioxide 23 mmol/L (21-32); Chloride 106 mmol/L (98-107); Glucose 253 mg/dl (70-99(Fasting)); Potassium 4.6 mmol/L (3.5-5.1); Sodium 145 mmol/L (136-145)
[2024-06-02] MEDS: MoRPHine SULFATE 4 MG/ML 1 ML CARP\\VIAL IV PRN (18:58)
[2024-06-02 19:03] LABS: INR 1.1 (0.9-1.1); Partial Thromboplastin Ratio 0.9; Partial Thromboplastin Time 25 Seconds (21-31); Prothrombin Time 11.4 Seconds (9.0-12.0)
[2024-06-02 19:06] LABS: Alanine Aminotransferase 31 U/L (7-52); Albumin Globulin Ratio 1.5 (0.9-2); Albumin Level 3.8 gm/dl (3.4-5.0); Alkaline Phosphatase 55 U/L (34-104); Aspartate Aminotransferase 76 U/L (13-39); Bilirubin,Total 0.5 mg/dl (0.2-1.0); Creatine Kinase 2126 U/L (26-192); Globulin 2.5 gm/dl (2.5-4.0); Total Protein 6.3 gm/dl (6.0-8.3)
[2024-06-02] MEDS: SODIUM CHLORIDE 0.9% 1,000 ML IV SCH (19:07)
[2024-06-02] MEDS: SODIUM CHLORIDE 0.9% 1,000 ML IV ONE (19:20)
[2024-06-02 19:28] LABS: Appearance Urine Clear (Clear); Bacteria Urine Automated None Seen (None Seen); Bilirubin Urine Negative (Negative); Blood Urine Negative (Negative); Color Urine Dark Yellow; Epithelial Cell Urine Auto 0-2 /hpf (0-2); Glucose Urine UA Negative (Negative); Ketones Urine Trace (Negative); Leukocyte Esterase Urine Trace (Negative); Nitrite Urine Negative (Negative); Protein Urine Negative (Negative); RBC Urine Automated 0-2 /hpf (0-2); Specific Gravity Urine 1.013 (1.000-1.030); Urobilinogen Urine Negative (Negative); WBC Urine Automated 0-5 /hpf (0-5)
--- NOTE | 2024-06-02 19:32 | CT Scan Report ---
EXAM: CT head/brain wo con CLINICAL HISTORY: s/p fall PW/GS/EB TECHNIQUE: Axial non-contrast CT scan of the brain was performed from the skull base to the high parietal region. One of the following dose reduction techniques were utilized for this exam: Automated exposure control, adjustment of the mA and/or kV according to patient size, use of iterative reconstruction, DLP: 2238.39 mGy-cm. COMPARISON: CT head/brain wo con date06/18/2020 FINDINGS: Brain Parenchyma: No acute intra-axial or extra-axial hemoarrge No evidence of acute infarct, or mass effect. Bilateral increased deep white matter hypodensity with small ill-defined hypodense area suggestive of small vessel disease Brain involutional changes in the form of widened extra-axial CSF spaces Ventricular System: No evidence of hydrocephalus Subarachnoid Spaces: No evidence of subarachnoid hemorrhage or extra-axial fluid collections. Cerebellum and Brainstem: Normal size and signal. No masses, lesions, or areas of abnormal signal. Orbits: Normal appearance of the globes, optic nerves, and extraocular muscles. No evidence of orbital masses or abnormal signal. Sinuses: Clear paranasal sinuses. No evidence of sinusitis or mucosal thickening. Mastoid Air Cells: Clear mastoid air cells. No evidence of mastoiditis. Skull and Meninges: Normal skull morphology. No fracture line IMPRESSION: 1. No acute intracranial abnormalities 2. Microvascular ischemic changes and senile changes. 3. No significant time interval changes Electronically signed by Jose Rafael Estrella 06-02-2024 7:31 PM
--- NOTE | 2024-06-02 19:36 | CT Scan Report ---
EXAM: CT abd pelvis wo con CLINICAL HISTORY: s/p fall PW/GS/EB TECHNIQUE: Non-contrast CT of the abdomen and pelvis was performed, with the following protocol: axial images, and reconstructed coronal and sagittal images. No intravenous contrast was administered. One of the following dose reduction techniques was utilized for this exam: Automated exposure control, adjustment of the mA and/or kV according to patient size, and use of iterative reconstruction. COMPARISON: Ct dated 01/02/2023 FINDINGS: Abdomen: Liver: Normal in size, shape, and density. Few small hypodense focal lesions measuring up to 1 cm. Gallbladder and Biliary System: The gallbladder is normal in size and shape. No wall thickening, pericholecystic fluid, or gallstones were identified. Pancreas: Pancreatic head, body, and tail are visualized and appear normal in size and density. No pancreatic masses or calcifications were noted. Spleen: Normal in size, shape, and density. No splenic lesions or masses were identified. Kidneys and Adrenal Glands: Both kidneys are normal in size, shape, and position. Cortical thickness is within normal limits. No renal calculi or hydronephrosis. Left upper zone 2.7 cm hypodense lesion likely cyst. Adrenal glands are unremarkable. Appendix not visualized. Pelvis: Urinary Bladder: Normal in contour and wall thickness. No intraluminal lesions. Uterus: Not visualized likely excised. Vagina: Normal in contour and wall thickness. Peritoneal and Retroperitoneal Structures: No free fluid or abnormal fluid collections were identified within the abdomen or pelvis. No lymphadenopathy was noted. Bowel: Looping of the ascending colon with rotate cecum. Colonic diverticulosis without diverticulitis. The visualized bowel loops are normal in caliber and appearance. No evidence of bowel obstruction or wall thickening. Bones and Soft Tissues: Fractured right femoral neck with avulsed lesser trochanter and soft tissue edema of the right upper thigh. Degenerative changes of the spine and sacroiliac joints and symphysis pubis. Vascular calcifications of the aorta and its branches with suspected bilateral renal artery stenosis. IMPRESSION: 1. Stable hepatic hypodense lesions likely cysts. 2. Stable left renal cortical cyst. 3. Stable colonic diverticulosis. 4. Hysterctomy, correlate with operative history. 5. Extensive athrosclerosis. 6. New right femoral neck fracture with moderate displacement and soft tissue edema [facility] was called at [phone] at 6:32 PM CONFERENCE RESERVATIONIST, 06/02/2024 and Alma (Nurse) was informed regarding the presence of significant medical findings in the report. Electronically signed by Jose Rafael Estrella 06-02-2024 7:35 PM
--- NOTE | 2024-06-02 19:36 | XRay Report ---
EXAM: XR chest 1V portable CLINICAL HISTORY: FALL CLW/MRN TECHNIQUE: An X-ray image of the chest is obtained in AP projection. COMPARISON: 12/09/2022. FINDINGS: Pulmonary Parenchyma: Lungs are clear bilaterally. No evidence of consolidation, collapse, or focal opacities. No pulmonary nodules are identified. No evidence of pleural effusion or pleural thickening. Heart and Mediastinum: Heart size and shape are normal. No mediastinal widening or masses. No hilar or mediastinal lymphadenopathy. Aaortic knuckle concentric atherosclerotic calcifications. Bony Thorax: Bony thorax appears intact without fractures or deformities. Soft Tissues: Soft tissues overlying the chest wall are unremarkable. IMPRESSION: 1. No acute cardiopulmonary abnormalities are identified. 2. Aaortic knuckle concentric atherosclerotic calcifications. Electronically signed by Jose Rafael Estrella 06-02-2024 7:36 PM
--- NOTE | 2024-06-02 19:36 | XRay Report ---
EXAM: XR femur RT 2V routine CLINICAL HISTORY: FALL CLW/MRN TECHNIQUE: X-ray images of the right femur were obtained in anteroposterior (AP) and lateral projections. COMPARISON: 09/20/2016 FINDINGS: Bone Structure: Comminuted intertrochanteric fracture of the right femur with displaced bone fragments, and secondary coxa vara. No underlying bone lesion identified. Marked osteoarthritic changes of the right knee joint. Joint and Articular Surfaces: Joint spaces in the visualized hip joint are preserved, with no significant narrowing, osteophyte formation, or subchondral sclerosis. Visualized articular surfaces of the femoral head are smooth and regular, without any signs of irregularity, osteophyte formation, or erosion. Soft Tissues: No calcifications, or masses. No evidence of infection, or inflammatory processes observed. IMPRESSION: 1. Comminuted intertrochanteric fracture of the right femur with displaced bone fragments, and secondary coxa vara. (New). 2. Marked osteoarthritic changes of the right knee joint. (slightly progressed). Disclaimer: A subtle bone abnormality or fracture may not be readily apparent on X-rays. Clinical correlation and further imaging, including CT, MRI, or follow-up X-rays, are advised if clinically warranted. [facility] was called at [phone] at 6:32 PM PROCESS MANAGER, 06/02/2024 and Alma (Nurse) was informed regarding the presence of significant medical findings in the report. Electronically signed by Jose Rafael Estrella 06-02-2024 7:36 PM
--- NOTE | 2024-06-02 19:37 | CT Scan Report ---
EXAM: CT cervical spine wo con CLINICAL HISTORY: s/p fall PW/GS/EB TECHNIQUE: A CT scan of the cervical spine was performed without the administration of intravenous contrast. Contiguous axial images were obtained from the skull base to the upper thoracic spine. Coronal and sagittal reformatted images were also reviewed. One of the following dose reduction techniques was utilized for this exam. Automated exposure control, adjustment of the mA and/or kV according to patient size, and use of iterative reconstruction. COMPARISON: Xray of cervical spine dated 05/01/2022 FINDINGS: Vertebrae: No fracture was noted. Grade 1 anterolisthesis of C7 over T1 is likely of degenerative causes. Average sagittal diameter of the cervical canal. Marked Spondylodegenerative changes with marginal osteophytes and reduced height of the scanned discs most appreciated C5-C6 and C6-C7 disc spaces. Multi-level disc herniation/bulge with posterior osteophyte is seen effacing the anterior subarachnoid space and just abutting the corresponding aspect of the cord, partially encroaching upon the neural canal most prominent at C5/C6. Moderate facetal and neurocentral joint osteoarthritic changes are most appreciated at lower cervical levels. No abnormal paravertebral soft tissue masses are seen. Atlantoaxial mild osteoarthritic changes Prevertebral Soft Tissues: The prevertebral soft tissues are normal in thickness without evidence of mass or abnormal fluid collection. Additional Findings: Bilateral hypodense thyroid nodules for further assessment by dedicated thyroid US. Bilateral common carotid arteries atherosclerotic mural calcification with left-sided partially calcified mural plaque. Suggest further assessment by CTA/Doppler. IMPRESSION: 1. No evidence of acute fracture. 2. Grade 1 anterorlisthesis of C7 over T1. 3. 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 Suggest further assessment by MRI if clinically warranted. 4. Atlantoaxial mild osteoarthritic changes. 5. Bilateral hypodense thyroid nodules. Suggest further assessment by dedicated thyroid US. 6. Bilateral common carotid arteries atherosclerotic mural calcification with left sided partially calcified mural plaque. Suggest further assessment by CTA/Doppler. 7. Findings compatible with prior Xray. Electronically signed by Jose Rafael Estrella 06-02-2024 7:37 PM
[2024-06-02] MEDS: MoRPHine SULFATE 2 MG/ML CARP IV PRN (21:28)
--- NOTE | 2024-06-02 21:51 | History & Physical Report ---
Date of Service June 02, 2024 Assessment & Plan (1) Closed hip fracture: Plan: - Noted on XR in the setting of mechanical fall - ortho consulted and plan for OR tomorrow - NPO at midnight - morphine 2mg q3h for pain 3-6, 4mg q3h for pain 7-10, IV tylenol (2) JAYLAN (acute kidney injury): Plan: - Likely pre-renal in the setting of hypovolemia - S/p 1L IVF in ED, continue NSS @ 125ml/hr while NPO - trend creatine - hold torsemide, lisinopril (3) Rhabdomyolysis: Plan: - elevated CK in the setting of hypovolemia - mild transaminitis - continue fluids as per above - trend CK (4) Leukocytosis: Plan: - noted to 21 - no signs of acute infection - probably element of hemoconcentration and reactive-> continue to trend - fluids as per above (5) Thyroid nodule: Plan: - noted indecently on imaging - f/u OP with US (6) Carotid atherosclerosis: Plan: - noted indecently on imaging - f/u OP with US vs CTA (7) Anemia: Plan: - Hgb= 9.7; BL 12 - no signs of acute bleeding - continue to trend Plan Chronic Stable - Paroxysmal Afib- Xarelto held in the setting of OR tomorrow, resume post-op. Sinus rhythm on tele at time of my eval. Metoprol held NPO pending OR tomorrow. - HTN: amlodipine, lisinopril, torsemide held with JAYLAN/NPO pending OR tomorrow. - DM2: Hold home oral medications. Well controlled with hemoglobin a1c 6-7 over the past 5 years. SSI as needed. Asthma: Continue home inhalers Diet: NPO VTE Prophylaxis- Xarelto held pending OR Dispo: Med Surg Code: Full History of Present Illness Primary Care Provider: PAYTON Lau 88 year old female with a past medical history of DM2, HTN, HLD, Paroxysmal A- fib presenting after fall. Daughter, Son and daughter in law are in the room and help provide some of the history. They state that the last time they were in touch with Halina was over 24 hrs ago. They believe that she fell in the garage sometime during the day of 06/01. Son could not reach her by phone today, so they went over to the house to check on her and found her in the basement. She states that she crawled in from the garage after she fell. Was brought to ED via EMS. ED Course Significant for: WBC= 21.49, Hbg= 9.7, Creatine= 2.2 (BL=1). CK= 2126. CXR, CT cervical spine/ head with acute pathology. XR femur with Comminuted intertrochanteric fracture of the right femur with displaced bone fragments, and secondary coxa vara S/p 1L NSS in ED Allergies Allergy/AdvReac Type Severity Reaction Status Date / Time simvastatin AdvReac Intermediate DIZZINESS Verified 05/18/24 10:01 Home Medications Medication Instructions Recorded Confirmed Type docusate sodium 100 mg capsule 100 mg PO QAM 05/13/19 06/02/24 History polyethylene glycol 3350 17 17 gm PO DAILY PRN Constipation 05/13/19 06/02/24 History gram/dose oral powder albuterol sulfate 90 mcg/actuation 2 puff inhalation Q6H PRN 06/09/23 06/02/24 Rx aerosol inhaler shortness of breath or wheezing #8.5 grams torsemide 20 mg tablet 20 mg PO DAILY #30 tabs 07/02/23 06/02/24 Rx amlodipine 10 mg tablet 10 mg PO QAM #90 tabs 07/17/23 06/02/24 Rx glimepiride 1 mg tablet 1 mg PO QDB #90 tabs 08/20/23 06/02/24 Rx pravastatin 20 mg tablet 20 mg PO HS #90 tabs 08/20/23 06/02/24 Rx fluticasone propionate 110 1 puff inhalation BID 09/12/23 06/02/24 History mcg/actuation HFA aerosol inhaler rivaroxaban 15 mg tablet (Xarelto) 15 mg PO DAILY #90 tabs 09/18/23 06/02/24 Rx lisinopril 40 mg tablet (Zestril) 40 mg PO DAILY #90 tabs 11/26/23 06/02/24 Rx metformin 500 mg tablet,extended 500 mg PO BID #180 tabs 12/04/23 06/02/24 Rx release 24 hr blood sugar diagnostic #100 ea 01/12/24 06/02/24 Rx metoprolol tartrate 25 mg tablet 25 mg PO BID 06/02/24 06/02/24 History Past Med/Surg History Problem List Carotid atherosclerosis Thyroid nodule Leukocytosis JAYLAN (acute kidney injury) (Acute) Rhabdomyolysis (Acute) Closed hip fracture (Acute) Rectal bleed Degenerative joint disease of cervical spine Pulmonary nodules GERD (gastroesophageal reflux disease) Anticoagulant long-term use (Acute) Edema Chronic venous insufficiency (Acute) Diabetes mellitus, controlled (Acute) History of malignant neoplasm of endometrium (Acute) Hypergammaglobulinemia (Acute) Venous stasis (Acute) Tinnitus Hypercholesteremia Short-term memory loss Hypertension (Acute) Osteoarthritis Asthma Anemia Paroxysmal A-fib Medical History Cataract Left shoulder strain Contusion of left upper extremity Vaginal bleeding New onset atrial flutter New onset atrial flutter Surgical History History of cataract surgery H/O: hysterectomy Family History Mother Cancer Diabetes Stroke Other Heart disease Denies family history of Ovarian cancer Prostate cancer Myocardial infarction Breast cancer Colorectal cancer Social History Smoking Status: Former smoker Second Hand Exposure: No; Do You Dip or Chew Tobacco: No; Hx Alcohol Use: No Hx Substance Use: No Preferred Language: Uzbek Communication Ability: Effective Visual Impairment: No Limitations Hearing Ability: Normal 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 Pit Crane Operator Required: No Beliefs That Will Affect Care: None marital status: Current Living Situation: Alone Current Living Situation Comment: family checks in often current occupational status: retired 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 Other Information That Helps Us Care for You: No Feels Safe at Home: Yes Safety Concerns: Feels Safe At This Time Childhood Exposure to Second-Hand Smoke: Yes Diet: regular caffeine: Yes Dental Care, Regularly: No Physical Activity Frequency: Does not Exercise Physical Activity Frequency Comment: Seatbelt Use: always Sunscreen Use: No Assistive Devices: Cane and Walker Assistive Devices Comment: glasses and upper denture at home Review of Systems Review of Systems: As per above Physical Exam Physical Exam: Constitutional: well-appearing, no acute distress HEENT: NCAT, no conjunctival injection CV: regular rhythm, no murmur appreciated, extremities well-perfused, no LE edema Resp: CTABL, no wheezes/rales/rhonchi appreciated, no increased work of breathing GI: soft, nondistended, nontender MSK: right LE shortened and externally rotated Skin: warm, dry, no rash appreciated, skin tear tight elbow Neuro: alert, oriented, no focal neurologic deficit appreciated Results & Data Results & Data Vital Signs (Past 12 Hours) Vital Signs Temp Pulse Pulse Resp BP BP Pulse Ox 06/02/24 21:00 96 H 16 123/64 96 06/02/24 20:14 98 H 16 120/62 98 06/02/24 20:12 100 H 19 95 06/02/24 20:03 120/62 06/02/24 19:45 112/71 06/02/24 19:45 112/71 06/02/24 19:42 94 H 16 97 06/02/24 19:30 107/57 L 06/02/24 19:30 107/57 L 06/02/24 19:22 100 H 16 99/59 L 97 06/02/24 19:18 106 H 18 96 06/02/24 19:15 99/59 L 06/02/24 19:15 97 H 21 96 06/02/24 19:12 108 H 26 H 98 06/02/24 18:45 126/69 06/02/24 18:45 126/69 06/02/24 18:45 126/69 06/02/24 18:45 99 H 22 100 06/02/24 18:45 37.0 C 108 H 22 131/99 99 06/02/24 18:44 99 06/02/24 18:44 37.0 C 106 H 18 126/69 99 06/02/24 18:44 37.0 C 112 H 22 132/65 98 06/02/24 18:42 132/65 06/02/24 18:42 132/65 06/02/24 18:29 112 H O2 Del Method 06/02/24 21:00 Room Air 06/02/24 20:14 Room Air 06/02/24 20:12 06/02/24 20:03 06/02/24 19:45 06/02/24 19:45 06/02/24 19:42 06/02/24 19:30 06/02/24 19:30 06/02/24 19:22 Room Air 06/02/24 19:18 06/02/24 19:15 06/02/24 19:15 06/02/24 19:12 06/02/24 18:45 06/02/24 18:45 06/02/24 18:45 06/02/24 18:45 06/02/24 18:45 Room Air 06/02/24 18:44 Room Air 06/02/24 18:44 Room Air 06/02/24 18:44 Room Air 06/02/24 18:42 06/02/24 18:42 06/02/24 18:29 Supervising Physician Co-Signing Physician Notes Attending addendum: I have physically seen this patient, have supervised the medical residents activities, and agree with the H&P unless as otherwise noted. Assessment and Plan: Closed right hip fracture- N.p.o. after midnight Plan for the OR tomorrow Acetaminophen 1 g IV every 8 hours as needed for mild pain or fever Morphine sulfate 2 mg IV every 3 hours as needed for moderate pain Sulfate 4 mg IV every 3 hours as needed for severe pain Geriatric hip fracture order set Acute kidney injury- Creatinine 2.20 on admission, with base 1 Status post 1 L fluid bolus in the ED NSS at 125 mL/h while n.p.o. Hold torsemide and lisinopril Repeat BMP in the a.m. Rhabdomyolysis- CK 2126, secondary to being on the floor about time Follow laboratory serially Remaining orders and notations as noted Resident Activity Tracking Resident Involvement: Resident Care Provided Care Provided: Adult Hospital Medicine (1) Closed hip fracture Encounter type: initial encounter Laterality: right Qualified Code(s): S72.001A - Fracture of unspecified part of neck of right femur, initial encounter for closed fracture
[2024-06-02] MEDS ORDERED: ALBUTEROL HFA 8 GM INHALER INH PRN (22:51)
[2024-06-03] MEDS ORDERED: GLUCOSE 40% GEL 15 GM TUBE PO PRN ×2 (01:05→16:13)
[2024-06-03] MEDS ORDERED: GLUCOSE 10 TAB/TUBE PO PRN ×2 (01:05→16:13)
[2024-06-03] MEDS ORDERED: CARBOHYDRATES FOR HYPOGLYCEMIA PO PRN ×2 (01:05→16:13)
[2024-06-03] MEDS ORDERED: DEXTROSE 50% 50 ML SYRINGE IV PRN ×2 (01:05→16:13)
[2024-06-03] MEDS ORDERED: GLUCAGON FOR INJ 1 MG VIAL SQ PRN ×2 (01:05→16:13)
[2024-06-03] MEDS: INSULIN ASPART PER UNIT CHARGE SC SCH ×2 (01:27→17:34)
[2024-06-03] MEDS: MoRPHine SULFATE 4 MG/ML 1 ML CARP\\VIAL IV PRN (03:52)
[2024-06-03 06:06] LABS: Basophils # (auto) 0.03 K/uL (0.00-0.20); Basophils % (auto) 0.2 %; Hematocrit (blood only) 24.4 % (37.0-47.0); Hemoglobin 8.1 g/dl (12.0-16.0); Immature Granulocytes # (auto) 0.16 K/uL (0.01-0.20); Immature Granulocytes % (auto) 0.9 %; Lymphocytes # (auto) 2.16 K/uL (1.20-3.40); Lymphocytes % (auto) 11.7 %; Mean Corpuscular Hemoglobin 28.9 pg (25.0-34.0); Mean Corpuscular Hgb Conc 33.2 g/dL (32.0-36.0); Mean Corpuscular Volume 87.1 fL (80.0-100.0); Mean Platelet Volume 10.1 fL (9.4-12.4); Monocytes # (auto) 1.79 K/uL (0.11-0.59); Monocytes % (auto) 9.7 %; Neutrophils # (auto) 14.38 K/uL (1.40-6.50); Neutrophils % (auto) 77.5 %; Platelet Count 168 K/uL (130-400); RDW Coefficient of Variation 14.6 % (11.5-14.5); RDW Standard Deviation 46.8 fL (36.4-46.3); White Blood Count 18.52 K/ul (4.8-10.8)
[2024-06-03 06:20] LABS: BUN Creatinine Ratio 29.3 (10-20); Creatinine Clr Calc Pharmacy 18.8 ml/min
--- NOTE | 2024-06-03 07:38 | Orthopedic Consultation ---
Date of Service June 03, 2024 Assessment & Plan (1) Closed hip fracture: 88-year-old female with multiple underlying medical comorbidities and a cane ambulator with advanced knee arthritis now with a right intertrochanteric hip fracture. No other major injuries. She did have some acute right renal insuff iciency due to dehydration which is improved this morning. No other apparent injuries. Plan: Discussed treatment options with the patient today. Certainly this is some of its best treated surgically. Will make sure she is medically optimized and then proceed with IM nailing of a right intertrochanteric hip fracture. The risks and benefits of this procedure explained to the patient and she und erstands. Informed consent was obtained. Will hold her anticoagulation for now and restart this 24 hours postop. (2) Rhabdomyolysis: (3) JAYLAN (acute kidney injury): (4) GERD (gastroesophageal reflux disease): (5) Anticoagulant long-term use: (6) Edema: (7) Diabetes mellitus, controlled: (8) History of malignant neoplasm of endometrium: (9) Hypertension: History of Present Illness Reason for Consultation: . Right hip fracture. Requesting Physician: . Attending Physician: Cheyanne Solano MD . Patient is an 88-year-old female with multiple medical comorbidities who presents with a broken hip. She apparently does live by herself and uses a cane to ambulate. She apparently had a fall 2 days ago and was in her garage for quite some time. She was eventually found by family members and brought the emergency room x-rays of the right hip fracture. She has been admitted by the medicine service and medically optimized. She has no pre-existing hip problems. She does use a cane to ambulate. She is got severe knee arthritis. Denies any other injuries. No head injury and no neck pain. Allergies Allergy/AdvReac Type Severity Reaction Status Date / Time simvastatin AdvReac Intermediate DIZZINESS Verified 05/18/24 10:01 Home Medications Medication Instructions Recorded Confirmed Type docusate sodium 100 mg capsule 100 mg PO QAM 05/13/19 06/02/24 History polyethylene glycol 3350 17 17 gm PO DAILY PRN Constipation 05/13/19 06/02/24 History gram/dose oral powder albuterol sulfate 90 mcg/actuation 2 puff inhalation Q6H PRN 06/09/23 06/02/24 Rx aerosol inhaler shortness of breath or wheezing #8.5 grams torsemide 20 mg tablet 20 mg PO DAILY #30 tabs 07/02/23 06/02/24 Rx amlodipine 10 mg tablet 10 mg PO QAM #90 tabs 07/17/23 06/02/24 Rx glimepiride 1 mg tablet 1 mg PO QDB #90 tabs 08/20/23 06/02/24 Rx pravastatin 20 mg tablet 20 mg PO HS #90 tabs 08/20/23 06/02/24 Rx fluticasone propionate 110 1 puff inhalation BID 09/12/23 06/02/24 History mcg/actuation HFA aerosol inhaler rivaroxaban 15 mg tablet (Xarelto) 15 mg PO DAILY #90 tabs 09/18/23 06/02/24 Rx lisinopril 40 mg tablet (Zestril) 40 mg PO DAILY #90 tabs 11/26/23 06/02/24 Rx metformin 500 mg tablet,extended 500 mg PO BID #180 tabs 12/04/23 06/02/24 Rx release 24 hr blood sugar diagnostic #100 ea 01/12/24 06/02/24 Rx metoprolol tartrate 25 mg tablet 25 mg PO BID 06/02/24 06/02/24 History Past Med/Surg History Problem List Carotid atherosclerosis Thyroid nodule Leukocytosis JAYLAN (acute kidney injury) (Acute) Rhabdomyolysis (Acute) Closed hip fracture (Acute) Rectal bleed Degenerative joint disease of cervical spine Pulmonary nodules GERD (gastroesophageal reflux disease) Anticoagulant long-term use (Acute) Edema Chronic venous insufficiency (Acute) Diabetes mellitus, controlled (Acute) History of malignant neoplasm of endometrium (Acute) Hypergammaglobulinemia (Acute) Venous stasis (Acute) Tinnitus Hypercholesteremia Short-term memory loss Hypertension (Acute) Osteoarthritis Asthma Anemia Paroxysmal A-fib Medical History Cataract Left shoulder strain Contusion of left upper extremity Vaginal bleeding New onset atrial flutter New onset atrial flutter Surgical History History of cataract surgery H/O: hysterectomy Family History Mother Cancer Diabetes Stroke Other Heart disease Denies family history of Ovarian cancer Prostate cancer Myocardial infarction Breast cancer Colorectal cancer Social History Smoking Status: Former smoker Second Hand Exposure: No; Do You Dip or Chew Tobacco: No; Hx Alcohol Use: No Hx Substance Use: No Preferred Language: Malawian Communication Ability: Effective Visual Impairment: No Limitations Hearing Ability: Normal Health Care Liaison Required: No Beliefs That Will Affect Care: None marital status: Current Living Situation: Alone Current Living Situation Comment: family checks in often current occupational status: retired 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 Physical Exam . Physical examination was a pleasant elderly female. She is awake alert and oriented lying in bed. She looks relatively comfortable. Examination of the right leg reveals the leg to be slightly shortened and externally rotated. There is no significant bruising or swelling. She does have a significant varus deformity to her knee with bony hypertrophy. She got moderate diffuse distal edema. She can dorsiflex and plantarflex her foot appropriately. She is neurologically intact. Results & Data Results & Data Laboratory Results . Diagnostic Findings . X-rays of the right hip were reviewed. Shows a right displaced intertrochanteric hip fracture. She got some underlying osteopenia. He has severe right knee arthritis. PG Care Time/CCT Total # of Minutes Spent Total Time Spent with Patient: Total time spent is greater than 50% in coordination of care (as documented) at patient's floor/unit and/or counseling patient: Coding Level of Care Code 14953 IN/OBS CONSULT LVL 5,80M Diagnoses Closed hip fracture S72.001A Encounter type: initial encounter Laterality: right Rhabdomyolysis M62.82 JAYLAN (acute kidney injury) N17.9 GERD (gastroesophageal reflux disease) K21.9 Anticoagulant long-term use Z79.01 Edema R60.9 Diabetes mellitus, controlled E11.9 History of malignant neoplasm of endometrium Z85.42 Hypertension I10 (1) Closed hip fracture Encounter type: initial encounter Laterality: right Qualified Code(s): S72.001A - Fracture of unspecified part of neck of right femur, initial encounter for closed fracture
[2024-06-03] MEDS: FLUTICASONE FUROATE 100MCG 14 PUFFS/INHALER INH SCH (08:13)
--- NOTE | 2024-06-03 11:43 | Electrocardiogram Report ---
Test Reason : Blood Pressure : */* mmHG Vent. Rate : 110 BPM Atrial Rate : 119 BPM P-R Int : * ms QRS Dur : 74 ms QT Int : 338 ms P-R-T Axes : * -10 60 degrees QTcB Int : 457 ms Poor data quality, interpretation may be adversely affected Sinus tachycardia Nonspecific ST and T wave abnormality Abnormal ECG When compared with ECG of 12-Sep-2023 23:34, ST now depressed in Inferior leads Nonspecific T wave abnormality now evident in Lateral leads Confirmed by Luiz Lowe ([id number]) on 06/03/2024 11:43:20 AM Referred By: REFERRED SELF Confirmed By: Luiz Lowe
--- OUTSIDE RECORDS SUMMARY | 2024-06-03 11:49 | External Medical Summary | Summary of Care ---
Author Name Unknown Organization [facility] Address [address] [place] [address] Phone [phone] Care Team Providers Care Leather Tanner Name Role Phone Junie Dorantes MD Primary Care Provider [phone] Encounter Details Date Type Department Care Team (Late st Contact Info) Description 05/13/2024 Population Health External Data Unspecified Department Allergies No known active allergiesdocumented as of this encounter (statuses as of 05/20/2024) Medications ASMANEX 120 METERED DOSES 220 MCG/INH IN AEPB Inhale 2 Puffs by mouth 2 times a day. Active PRAVASTATIN SODIUM 20 MG PO TABS Take 1 Tablet by mouth at bedtime. Active METFORMIN ER 500 MG PO TB24 Take 1 Tablet by mouth 2 times a day. Active Metoprolol Tartrate 25 MG Oral Tablet (Lopressor) Take 1 Tablet by mouth 2 times a day. Active VENTOLIN HFA 108 (90 BASE) MCG/ACT IN AERS Inhale 2 Puffs by mouth as needed for Shortness of Breath or Wheezing. Active Rivaroxaban 15 MG Oral Tablet (Xarelto) Take 1 Tablet by mouth daily. Active Lisinopril 40 MG Oral Tablet Take 1 Tablet by mouth in the morning. Active amLODIPine Besylate 10 MG Oral Tablet (Norvasc) Take 1 Tablet by mouth in the morning. Active Glimepiride 1 MG Oral Tablet (Amaryl) Take 1 Tablet by mouth daily before breakfast. Active Bisacodyl 5 MG Oral Tablet Delayed Release (Dulcolax) Take 1 Tablet by mouth daily as needed for Constipation. Active Centrum Silver 50+Women Oral Tablet Take 1 Tablet by mouth daily. Active Acetaminophen 500 MG Oral Tablet (Tylenol) Take 1 Tablet by mouth daily as needed for Pain, Mild or Pain, Moderate. Active Torsemide 20 MG Oral Tablet (Demadex) Take 1 Tablet by mouth every other day. Active documented as of this encounter (statuses as of 05/20/2024) Active Problems No known active problems documented as of this encounter (statuses as of 05/20/2024) Immunizations Name Administration Dates Next Due Covid-19, Mrna, Lnp-s, Pf, B ivalent, 30 Mcg, IM, 12 yrs and above (Pfizer) 03/27/2022 documented as of this encounter Social History Tobacco Use Types Packs/Day Years Used Date Smoking Tobacco: Former Alcohol Use Standard Drinks/Week Comments No 0 (1 standard drink = 0.6 oz pur e alcohol) Utilities Answer Date Recorded Do you have trouble paying y our heating, water, or electric bill? (Adult - for ages 18 years and over) Not on file 12/23/2023 Is your family able to pay t he heat, water, or electric bill? (Household - for ages 0-17 years) Not on file 12/23/2023 Does your family have access to good internet? (Household - for ages 0-17 years) Not on file 12/23/2023 Social Connections Answer Date Recorded How often do you feel lonely or isolated from those around you? (Adult - for ages 18 years and over) Not on file 12/23/2023 Comments No Sex and Gender Information Value Date Recorded Sex Assigned at Not on file Legal Sex Female 5:56 AM EST Gender Identity Not on file Sexual Orientation Not on file documented as of this encounter Plan of Treatment Health Maintenance Due Date Last Done Comments DXA Scan 1935 Depression Screening 1947 DTap/Tdap Vaccines (1 - Tdap) 1954 Zoster Vaccines (1 of 2) 1985 Pneumococcal Vaccine: 65+ Ye ars (1 of 1 - PCV) 2000 *ADVANCE DIRECTIVE NOT ON FILE 07/28/2014 COVID-19 Vaccine (2 - 2023-2 5 season) 2024 03/27/2022 Influenza Vaccine (FLU shot) (#1) 2024 HPV (Gardasil) Vaccine Aged Out No lo nger eligible based on patient's age to complete this topic Hepatitis B Vaccine Aged Out No longe r eligible based on patient's age to complete this topic MENINGOCOCCAL (MENACTRA/MENVEO) Aged Out No longer eligible based on patient's age to complete this topic documented as of this encounter Medical Devices Not on filedocumented as of this encounter Advance Directives * Full Code (Latest Code Status on File) Date Activated Date Inactivated Comments 06/24/2014 1:15 PM 06/25/2014 7:12 PM This order reflects the patients wishes and were consensually agreed upon. Question Answer Comments Discussion of Advance Directives occurred with: Not Discussed Care Teams Leather Tanner Relationship Specialty Start Date End Date Junie Dorantes MD PCP - General Internal Medicine 05/09/14 documented as of this encounter
--- NOTE | 2024-06-03 12:34 | Anesthesiology Consultation ---
Date of Service June 03, 2024 Assessment & Plan Chart Review Chart Review: Acceptable Risk for Surgery and Patient NOT seen in Pre Admission Testing Consults Requested none History Surgery Operation Date: 06/03/24 10:30 Proposed Procedures p Right Long Troch Nail(Right) - Dwayne Linn MD Height/Weight Height: 5 ft Weight: 72.5 kg Allergies Allergy/AdvReac Type Severity Reaction Status Date / Time simvastatin AdvReac Intermediate DIZZINESS Verified 05/18/24 10:01 Medications Home Medications Medication Instructions Recorded Confirmed Last Taken docusate sodium 100 mg capsule 100 mg PO QAM 05/13/19 06/02/24 08/22/21 polyethylene glycol 3350 17 17 gm PO DAILY PRN Constipation 05/13/19 06/02/24 06/18/20 gram/dose oral powder albuterol sulfate 90 mcg/actuation 2 puff inhalation Q6H PRN 06/09/23 06/02/24 Unknown aerosol inhaler shortness of breath or wheezing #8.5 grams torsemide 20 mg tablet 20 mg PO DAILY #30 tabs 07/02/23 06/02/24 Unknown amlodipine 10 mg tablet 10 mg PO QAM #90 tabs 07/17/23 06/02/24 Unknown glimepiride 1 mg tablet 1 mg PO QDB #90 tabs 08/20/23 06/02/24 Unknown pravastatin 20 mg tablet 20 mg PO HS #90 tabs 08/20/23 06/02/24 Unknown fluticasone propionate 110 1 puff inhalation BID 09/12/23 06/02/24 Unknown mcg/actuation HFA aerosol inhaler rivaroxaban 15 mg tablet (Xarelto) 15 mg PO DAILY #90 tabs 09/18/23 06/02/24 Unknown lisinopril 40 mg tablet (Zestril) 40 mg PO DAILY #90 tabs 11/26/23 06/02/24 Unknown metformin 500 mg tablet,extended 500 mg PO BID #180 tabs 12/04/23 06/02/24 Unknown release 24 hr blood sugar diagnostic #100 ea 01/12/24 06/02/24 Unknown metoprolol tartrate 25 mg tablet 25 mg PO BID 06/02/24 06/02/24 Unknown Active Medications Generic Name Dose Route Start Last Admin Trade Name Freq PRN Reason Stop Dose Admin Fluticasone Furoate 1 puffs 06/03/24 09:00 06/03/24 08:13 Fluticasone Furoate 100mcg 14 Puffs/Inhaler INH 07/03/24 08:59 1 puffs DAILY PEYMAN Administration Sodium Chloride 1,000 mls @ 125 mls/hr 06/02/24 19:15 06/03/24 03:58 Nss IV 06/03/24 19:14 125 mls/hr .Q8H PEYMAN Administration Insulin Aspart 0 units 06/03/24 01:15 06/03/24 12:26 Insulin Aspart Per Unit Charge SC 07/03/24 01:14 Not Given Q6 PEYMAN Morphine Sulfate 4 mg 06/03/24 00:54 06/03/24 11:26 Morphine Sulfate 4 Mg/Ml 1 Ml Carp\Vial IV 06/16/24 18:13 4 mg Q3H PRN Administration Severe Pain (Rating 7,8,9,10) Past Medical History Medical History Cataract Left shoulder strain Contusion of left upper extremity Vaginal bleeding New onset atrial flutter New onset atrial flutter Past Family History Family History Mother Cancer Diabetes Stroke Other Heart disease Denies family history of Ovarian cancer Prostate cancer Myocardial infarction Breast cancer Colorectal cancer Past Surgical History Surgical History History of cataract surgery H/O: hysterectomy Social History Smoking Status: Former smoker Do You Dip or Chew Tobacco: No Hx Alcohol Use: No Hx Substance Use: No substance use type: does not use Physical Exam Vital Signs Last Vital Signs Temp 36.5 C 06/03/24 07:21 Pulse 93 H 06/03/24 09:15 Resp 17 06/03/24 09:15 BP 101/59 L 06/03/24 09:15 Pulse Ox 96 06/03/24 09:15 O2 Del Method Room Air 06/03/24 09:15 Testing Laboratory Results 06/03/24 05:24 06/03/24 05:24 PT 11.4 Seconds (9.0-12.0) 06/02/24 18:17 INR 1.1 (0.9-1.1) 06/02/24 18:17 APTT 25 Seconds (21-31) 06/02/24 18:17 Urine Color Dark Yellow 06/02/24 19:08 Urine Appearance Clear (Clear) 06/02/24 19:08 Urine pH 5.0 (4.5-7.5) 06/02/24 19:08 Ur Specific [place] 1.013 (1.000-1.030) 06/02/24 19:08 Urine Protein Negative (Negative) 06/02/24 19:08 Urine Glucose (UA) Negative (Negative) 06/02/24 19:08 Urine Ketones Trace (Negative) H 06/02/24 19:08 Urine Nitrite Negative (Negative) 06/02/24 19:08 Ur Leukocyte Esterase Trace (Negative) H 06/02/24 19:08 Urine WBC (Auto) 0-5 /hpf (0-5) 06/02/24 19:08 Urine RBC (Auto) 0-2 /hpf (0-2) 06/02/24 19:08 U Hyaline Cast (Auto) 6-10 /lpf (0-2) H 06/02/24 19:08 U Epithel Cells (Auto) 0-2 /hpf (0-2) 06/02/24 19:08 Urine Bacteria (Auto) None Seen (None Seen) 06/02/24 19:08 Blood Type O Positive 06/02/24 18:18 Antibody Screen NEGATIVE 06/02/24 18:18 06/03/24 06/03/24 06/03/24 12:02 05:41 01:22 POC Glucose 139 H 126 H 193 H
[2024-06-03] MEDS ORDERED: fentaNYL citrate PF 100 MCG/2 ML VIAL ONE (13:23)
[2024-06-03] MEDS ORDERED: PROPOFOL IV EMULSION 10 MG/ML 20 ML VIAL IV ONE (13:24)
[2024-06-03] MEDS ORDERED: ROCURONIUM BROMIDE 10 MG/ML 5 ML VIAL IV ONE (13:24)
[2024-06-03] MEDS ORDERED: ePHEDrine sulfate 50 MG/ML AMP IV PRN (13:28)
[2024-06-03] MEDS ORDERED: ONDANSETRON INJ 2 MG/ML 2 ML VIAL IV PRN (13:28)
[2024-06-03] MEDS ORDERED: fentaNYL citrate PF 100 MCG/2 ML VIAL IV PRN (13:28)
[2024-06-03] MEDS ORDERED: ATROPINE SULFATE 0.1 MG/ML 10ML SYR IV PRN (13:28)
[2024-06-03] MEDS: ceFAZolin 2000MG 2,000 MG/15 ML SYR IV SCH (14:07)
[2024-06-03] MEDS: TRANEXAMIC ACID / 0.7% NACL 1,000 MG/100 ML BAG IV SCH (14:07)
--- NOTE | 2024-06-03 14:21 | Hospitalist Progress Note ---
Date of Service June 03, 2024 Assessment & Plan (1) Closed hip fracture: Plan: 88-year-old woman who lives independently sustained a mechanical fall while attempting to open or close her garage door, no loss of consciousness, sustained right hip fracture. Was down on the ground for 24 hours with resultant JAYLAN and mild rhabdomyolysis right hip fracture - plan for operative repair today by Dr. Linn - morphine 2mg q3h for pain 3-6, 4mg q3h for pain 7-10, IV tylenol no medical contraindications to proceeding with urgent/ nonelective surgery as planned, she does not have any cardiac history she is able to go up a flight of stairs with assistance without chest pain, she is able to ambulate on flat without dyspnea exertion or angina she is usually able to walk all around the grocery store to shop independently. EKG reviewed and is a very poor baseline tracing with sinus tachycardia and may be some nonspecific ST changes and depression in lateral leads. No evidence of decompensated heart failure on exam and no significant murmur. I updated her son and DIL at bedside. We discussed general risks:benefits of surgery including risks of delirium, pneumonia, cardiac event vs not doing surgery which would leave her bedbound (2) JAYLAN (acute kidney injury): Plan: Prerenal related to dehydration, UOP adequate and Cr improving with IV fluids - hold torsemide, lisinopril - continue IV fluids - AM BMP Cr 2.2-->1.8 overnight, baseline unknown HAGMA related to dehydration and JAYLAN resolved Bilateral renal artery stenosis noted on CT scan. Does not affect management. (3) Rhabdomyolysis: Plan: CK 2100-->2300 -continue IV fluids -check CK in am (4) Leukocytosis: Plan: - 21-->18 - no signs of acute infection - element of hemoconcentration and reactive-> continue to trend - fluids as per above (5) Thyroid nodule: Plan: - noted indecently on imaging - f/u OP with US (6) Carotid atherosclerosis: Plan: - noted indecently on imaging - f/u OP with US vs CTA (7) Anemia: Plan: - Hgb= 9.7; BL 12 - no signs of acute bleeding - continue to trend Plan Chronic Stable - Paroxysmal Afib- Xarelto held for surgery, resume metoprolol - HTN: resume amlodipine. lisinopril held for JAYLAN - DM2: Hold home oral medications. Well controlled with hemoglobin a1c 6-7 over the past 5 years. premeal PRN short acting insulin as needed. Asthma: Continue home inhalers, not in exacerbation Diet: NPO VTE Prophylaxis- Xarelto held pending OR Admission and Anticipated Discharge Date Admission Date: June 02, 2024 Subjective right hip pain improved with meds says she fell when she went out to the garage to open/close the garage door which is mechanical, no LOC was able to drag herself into the adjacent basement hallway which was heated but was down 24h Physical Exam 2 Physical Exam: PHYSICAL EXAMINATION Last 24h vital signs reviewed, see documentation in flowsheet General: comfortable appearing, no distress HEENT: Normocephalic, atraumatic, pupils round and equal, sclerae anicteric, no conjunctival injection, moist mucus membranes Lungs: Normal respiratory effort. Clear to auscultation bilaterally. No RRW Heart: Regular rate and rhythm, no murmurs. No JVD Abdomen: Soft, nontender, nondistended. Bowel sounds present. Extremities: Warm, dry, well-perfused. 2+ lower extremity edema. right leg is warm and well-perfused 2+ DP pulse Neuro: Alert and oriented x 4, vague historian hard of hearingface symmetric, right lower extremity foreshortened and externally rotated Psych: Normal affect and behavior Results & Data Results & Data Vital Signs (Past 12 Hours) Vital Signs Temp Pulse Resp BP Pulse Ox O2 Del Method 06/03/24 09:15 93 H 17 101/59 L 96 Room Air 06/03/24 08:00 Room Air 06/03/24 07:21 97.7 F 96 H 16 112/56 L 92 Room Air Laboratory Results 06/03/24 05:24 06/03/24 05:24 PG Care Time/CCT Total # of Minutes Spent Total Time Spent with Patient: Total time spent is greater than 50% in coordination of care (as documented) at patient's floor/unit and/or counseling patient: Coding Level of Care Code 35272 SUB INP/OBS CARE 2/35MIN Diagnoses Closed hip fracture S72.001A Encounter type: initial encounter Laterality: right JAYLAN (acute kidney injury) N17.9 Rhabdomyolysis M62.82 Leukocytosis D72.829 Thyroid nodule E04.1 Carotid atherosclerosis I65.29 Anemia D64.9 (1) Closed hip fracture Encounter type: initial encounter Laterality: right Qualified Code(s): S 72.001A - Fracture of unspecified part of neck of right femur, initial encounter for closed fracture
[2024-06-03] MEDS: BUPIVACAINE/EPINEPHRINE 0.5% MPF 1:200,000 30 ML VIAL ONE (14:26)
[2024-06-03] MEDS ORDERED: SUGAMMADEX SODIUM 200 MG/2 ML VIAL IV ONE (14:41)
[2024-06-03] MEDS ORDERED: ONDANSETRON INJ 2 MG/ML 2 ML VIAL ONE (14:41)
--- NOTE | 2024-06-03 15:20 | Operative Report ---
PG Post Operative Report Pre & Post Diagnosis Operation Date: 06/03/24 10:30 Pre-Op Diagnosis: Right closed intertrochanteric hip fracture Post-Op Diagnosis: Right closed intertrochanteric hip fracture I identified the patient and participated in the time-out.: Yes Procedure Operation Date: 06/03/24 10:30 Actual Procedures p Right Hip Intramedullary Nail Fixation(Right) of right intertrochanteric hip fracture- Dwayne Linn MD Surgeon Dwayne Linn MD All Purpose Clerk None Estimated Blood Loss 100 Findings Consistent with Post-Op Diagnosis Specimens None Anesthesia Type General Complications none Disposition Accompanied Patient To Recovery: No Indications Patient is an 88-year-old female with multiple medical comorbidities who sustained a fall 2 days ago. She was actually in her garage in her basement for a day. She was found by family brought to emergency room where x-rays revealed a right hip fracture. The patient was admitted by the medicine service, medically optimized and indicated for surgical treatment. Description of Procedure Operative implants consist of: 1. Synthes right 340 mm x 11 mm long trochanteric nail. 2. 90 mm helical blade. 3. 5 mm x 42 mm distal interlocking screw. The patient was taken to the operating, identified, placed on the operating table in the supine position. All contact areas were appropriately padded. IV antibiotics fibra anesthesia team. A general anesthetic was implemented. The patient did receive 1 g tranexamic acid. She was then placed on the fracture table. The right leg was placed in boot traction and the left leg was placed in a well-leg talavera. Applied some longitudinal traction to the foot and internally rotated foot so the knee Pointed to the ceiling. X-ray was brought in. The fracture is nearly anatomically aligned. The right hip and leg was then scrubbed with Hibiclens, prepped with ChloraPrep and draped in usual sterile fashion. A curvilinear incision was made just proximal to the tip of the greater trochanter. Sharp dissection was carried through subcutaneous tissue down to level of the gluteal fascia. The gluteal fascia was incised longitudinally in line with skin incision. The subcutaneous tissue envelope was fairly thick. A guidewire was placed just lateral to the tip of the trochanter and in line with the IM canal and at the AP and lateral planes. This was advanced down the canal. This was verified fluoroscopically. It was overreamed with a large reamer. The guidewire was removed and a ball-tipped guidewire was placed. We measured for nail length and 340 mm nail was selected. I then reamed the IM canal beginning with a size 10 and progressing up to 12.5. We then placed a Synthes right 11 mm x 340 mm long trochanteric nail over the guidewire. The guidewire was removed. The nail was tapped into position. The lateral aiming arm was attached. A stab incision was made and the lateral aiming arm was advanced the lateral aspect the femur. A guidewire was placed in the central aspect of the femoral head neck on both the AP and lateral planes. This was then measured. A 90 mm helical blade was selected. The cortical step drill was used to breach the cortex and the triple reamer was set at 90 and overreamed the guidewire. A 90 mm helical blade was placed. We then compressed the fracture site. The proximal setscrew was tightened. The lateral aiming arm was removed and some final x-rays were obtained. Attention was then drawn toward distal interlocking. Using a perfect [place] technique a distal interlocking screw was placed in the dynamic hole in the dynamic position. A stab incision was made. The drill was used the drill hole in the 5.0 mm x 42 mm screw was placed. Some final x-rays were obtained. All hardware was appropriately positioned. I then irrigated extensively. We injected locally with 30 cc of half percent Marcaine with epinephrine. The gluteal fascia was then closed with #1 Vicryl suture in a [id number] fashion. The's soft tissue envelope proximally was closed in 3 layers with a deep 2 layers with #1 Vicryl suture in the subcutaneous tissues with a 2-0 Dexon suture in a buried interrupted fashion. All other skin incisions were closed with 2-0 Vicryl suture in a buried interrupted fashion followed by skin veronique. The proximal wound was then closed with skin veronique as well. A sterile dressing composed of Xeroform, 4 x 4's, ABD pad and foam tape was applied. The patient was then taken off the fracture table and brought out of general esthesia and transferred to the recovery room in stable condition. The patient tolerated the procedure well and there were no complications. All needle and sponge counts were correct at the end of the operation. I attest to the content of the Intraoperative Record and any orders documented therein. Any exceptions are noted below.
--- NOTE | 2024-06-03 15:31 | Anesthesiology Progress Note ---
Date of Service June 03, 2024 Anesthesia Post Procedure Vital Signs Vital Signs: Temp Pulse Pulse Pulse Resp BP BP 06/03/24 15:20 94 H 22 111/46 L 06/03/24 15:10 36.3 C L 93 H 20 138/50 L 06/03/24 09:15 93 H 17 101/59 L 06/03/24 08:00 06/03/24 07:21 36.5 C 96 H 16 112/56 L 06/02/24 23:00 06/02/24 23:00 37.1 C 104 H 20 121/64 06/02/24 22:45 37.1 C 104 H 20 121/64 06/02/24 22:00 94/55 L 06/02/24 21:48 95 H 18 06/02/24 21:30 93 H 23 06/02/24 21:00 99 H 15 06/02/24 21:00 96 H 16 123/64 06/02/24 20:45 98 H 19 06/02/24 20:14 98 H 16 120/62 06/02/24 20:12 100 H 19 06/02/24 20:03 120/62 06/02/24 19:45 112/71 06/02/24 19:45 112/71 06/02/24 19:42 94 H 16 06/02/24 19:30 107/57 L 06/02/24 19:30 107/57 L 06/02/24 19:22 100 H 16 99/59 L 06/02/24 19:18 106 H 18 06/02/24 19:15 99/59 L 06/02/24 19:15 97 H 21 06/02/24 19:12 108 H 26 H 06/02/24 18:45 126/69 06/02/24 18:45 126/69 06/02/24 18:45 126/69 06/02/24 18:45 99 H 22 06/02/24 18:45 37.0 C 108 H 22 131/99 06/02/24 18:44 06/02/24 18:44 37.0 C 106 H 18 126/69 06/02/24 18:44 37.0 C 112 H 22 132/65 06/02/24 18:42 132/65 06/02/24 18:42 132/65 06/02/24 18:29 112 H Pulse Ox O2 Del Method O2 Flow Rate 06/03/24 15:20 95 Nasal Cannula 3 06/03/24 15:10 96 Nasal Cannula 3 06/03/24 09:15 96 Room Air 06/03/24 08:00 Room Air 06/03/24 07:21 92 Room Air 06/02/24 23:00 Room Air 06/02/24 23:00 95 Room Air 06/02/24 22:45 95 Room Air 06/02/24 22:00 06/02/24 21:48 97 06/02/24 21:30 98 06/02/24 21:00 96 06/02/24 21:00 96 Room Air 06/02/24 20:45 97 06/02/24 20:14 98 Room Air 06/02/24 20:12 95 06/02/24 20:03 06/02/24 19:45 06/02/24 19:45 06/02/24 19:42 97 06/02/24 19:30 06/02/24 19:30 06/02/24 19:22 97 Room Air 06/02/24 19:18 96 06/02/24 19:15 06/02/24 19:15 96 06/02/24 19:12 98 06/02/24 18:45 06/02/24 18:45 06/02/24 18:45 06/02/24 18:45 100 06/02/24 18:45 99 Room Air 06/02/24 18:44 99 Room Air 06/02/24 18:44 99 Room Air 06/02/24 18:44 98 Room Air 06/02/24 18:42 06/02/24 18:42 06/02/24 18:29 Pain Intensity Right Hip: Pain Intensity: 3 Transfer of Care Handoff Completed per policy Notes Mental Status: alert / awake / arousable Patient Amnestic to Procedure: Yes Nausea / Vomiting: adequately controlled Pain: adequately controlled Airway Patency, RR, SpO2: stable & adequate BP & HR: stable & adequate Hydration State: stable & adequate Anesthetic Complications: no major complications apparent and Pt Satisfied with anesthetic care
[2024-06-03] MEDS ORDERED: Nursing to Pharmacy Communication SCH (16:30)
[2024-06-03] MEDS: ceFAZolin 1000MG 1,000 MG/7.5 ML SYR IV SCH (21:05)
[2024-06-04] MEDS: MoRPHine SULFATE 2 MG/ML CARP IV PRN ×2 (03:36→15:51)
[2024-06-04 07:28] LABS: Hematocrit (blood only) 21.2 % (37.0-47.0); Hemoglobin 6.8 g/dl (12.0-16.0); Mean Corpuscular Hemoglobin 28.7 pg (25.0-34.0); Mean Corpuscular Hgb Conc 32.1 g/dL (32.0-36.0); Mean Corpuscular Volume 89.5 fL (80.0-100.0); Mean Platelet Volume 9.9 fL (9.4-12.4); Nucleated RBC # (auto) 0.02 K/uL (0.00-0.12); Nucleated RBC % (auto) 0.2 %; Platelet Count 154 K/uL (130-400); Red Blood Count 2.37 M/uL (4.20-5.40); White Blood Count 12.04 K/ul (4.8-10.8)
[2024-06-04] MEDS ORDERED: SODIUM CHLORIDE 0.9% 50 ML IV PRN (07:35)
[2024-06-04] MEDS ORDERED: SODIUM CHLORIDE 0.9% 100 ML IV PRN (07:35)
--- NOTE | 2024-06-04 07:35 | Hospitalist Progress Note ---
Date of Service June 04, 2024 Assessment & Plan (1) Closed hip fracture: Plan: 88-year-old woman who lives independently sustained a mechanical fall while attempting to open or close her garage door, no loss of consciousness, sustained right hip fracture. Was down on the ground for 24 hours with resultant JAYLAN and mild rhabdomyolysis Acute pathologic right hip fracture due to age related osteoporosis Operation Date: 06/03/24 10:30 Actual Procedures p Right Hip Intramedullary Nail Fixation(Right) of right intertrochanteric hip fracture- Dwayne Linn MD Acute blood loss anemia Hg 6.8 - not clearly symptomatic but with JAYLAN and Hg<7 will benefit from transfusion - 1u RBC ordered (2) JAYLAN (acute kidney injury): Plan: Prerenal related to dehydration, UOP adequate and Cr improving with IV fluids - hold torsemide, lisinopril - no longer on IV fluids - AM BMP Cr 2.2-->1.65 baseline unknown HAGMA related to dehydration and JAYLAN resolved Bilateral renal artery stenosis noted on CT scan. Does not affect management. Transfuse 1u RBC today (3) Rhabdomyolysis: Plan: CK 2100-->2300-->1200 getting transfusion today (4) Leukocytosis: Plan: - 21-->12 - no signs of acute infection - element of hemoconcentration and reactive-> resolving (5) Thyroid nodule: Plan: - noted indecently on imaging - f/u OP with US (6) Carotid atherosclerosis: Plan: - noted indecently on imaging - f/u OP with US vs CTA (7) Anemia: Plan: Postoperative acute blood loss anemia Hg 9.7 --> 6.8 postop -transfuse 1 unit RBCs -AM CBC Plan Chronic Stable - Paroxysmal Afib- Xarelto held for surgery, resume metoprolol - HTN: resume amlodipine. lisinopril held for JAYLAN - DM2: Hold home oral medications. Well controlled with hemoglobin a1c 6-7 over the past 5 years. premeal PRN short acting insulin as needed. Asthma: Continue home inhalers, not in exacerbation Diet: NPO VTE Prophylaxis- Xarelto 10 mg resuming this afternoon Admission and Anticipated Discharge Date Admission Date: June 02, 2024 Subjective right hip does hurt, just had some morphine, has not been oob yet and still has beckman awake and alert however denies shortness of breath, no CP Physical Exam 2 Physical Exam: PHYSICAL EXAMINATION Last 24h vital signs reviewed, see documentation in flowsheet General: comfortable appearing, no distress HEENT: Normocephalic, atraumatic, pupils round and equal, sclerae anicteric, no conjunctival injection, moist mucus membranes Lungs: Normal respiratory effort. Clear to auscultation bilaterally. No RRW Heart: Regular rate and rhythm, no murmurs. No JVD Abdomen: Soft, nontender, nondistended. Bowel sounds present. Extremities: 2+ lower extremity edema. R leg deformity resolved, R hip in dressing, RLE wwp Neuro: Alert and oriented to situation, vague historian hard of hearing, face symmetric Psych: Normal affect and behavior Results & Data Results & Data Vital Signs (Past 12 Hours) Vital Signs Temp Pulse Resp BP Pulse Ox O2 Del Method 06/04/24 07:29 98.6 F 96 H 16 118/65 91 Room Air 06/04/24 03:17 98.6 F 93 H 16 119/60 93 Room Air 06/03/24 23:20 98.4 F 94 H 16 103/57 L 92 Room Air 06/03/24 21:28 98.2 F 93 H 16 109/63 98 Room Air 06/03/24 21:13 Room Air Laboratory Results 06/04/24 06:40 06/04/24 06:40 PG Care Time/CCT Total # of Minutes Spent Total Time Spent with Patient: Total time spent is greater than 50% in coordination of care (as documented) at patient's floor/unit and/or counseling patient: Coding Level of Care Code 47071 SUB INP/OBS CARE 3/50MIN Diagnoses Closed hip fracture S72.001A Encounter type: initial encounter Laterality: right JAYLAN (acute kidney injury) N17.9 Rhabdomyolysis M62.82 Leukocytosis D72.829 Thyroid nodule E04.1 Carotid atherosclerosis I65.29 Anemia D64.9 (1) Closed hip fracture Encounter type: initial encounter Laterality: right Qualified Code(s): S 72.001A - Fracture of unspecified part of neck of right femur, initial encounter for closed fracture
[2024-06-04 07:38] LABS: Basophils # (auto) 0.01 K/uL (0.00-0.20); Basophils % (auto) 0.1 %; Immature Granulocytes # (auto) 0.06 K/uL (0.01-0.20); Immature Granulocytes % (auto) 0.5 %; Lymphocytes # (auto) 1.36 K/uL (1.20-3.40); Lymphocytes % (auto) 11.3 %; Monocytes # (auto) 1.43 K/uL (0.11-0.59); Monocytes % (auto) 11.9 %; Neutrophils # (auto) 9.18 K/uL (1.40-6.50); Neutrophils % (auto) 76.2 %; RBC Morphology Unremarkable
[2024-06-04] MEDS: ACETAMINOPHEN 325 MG TAB PO SCH (07:49)
[2024-06-04 07:51] LABS: BUN Creatinine Ratio 32.7 (10-20); Calcium 7.6 mg/dl (8.6-10.3); Creatinine Clr Calc Pharmacy 20.9 ml/min; Potassium 4.1 mmol/L (3.5-5.1)
--- NOTE | 2024-06-04 08:18 | Orthopedic Progress Note ---
Date of Service June 04, 2024 Assessment & Plan (1) Closed hip fracture: Plan: 88-year-old female with multiple medical comorbidities now postop day 1 from IM nailing of a right inner troches fracture with underlying acute kidney injury due to hypovolemia and rhabdomyolysis slowly improving. She really looks pretty stable and good today. She is quite anemic but that does not seem to be symptomatic. Plan: 1. DVT prophylaxis. Will plan on using thigh-high teds, SCDs, and back on her Xarelto. We did recommend she start 10 mg a day 24 hours after surgery. She is quite anemic and want a try and limit blood loss. 2. Anemia. She appears relatively asymptomatic. Will leave it up the medicine service as far as transfusion needs. 3. Pain control. Seems to be doing well with current pain regimen. I really try and limit narcotics to avoid confusion and other issues. 4. PT/OT. She can fully weight-bear as tolerated on the right leg. 5. Disposition. She is orthopedically okay for discharge anytime medically stable. Certainly her kidney function rhabdomyolysis need to be monitored. Think seem to be improving. I need to see her back 2 to 3 weeks out from surgery date. Any orthopedic questions can be directly [phone]. (2) JAYLAN (acute kidney injury): (3) Diabetes mellitus, controlled: (4) Paroxysmal A-fib: (5) Rhabdomyolysis: Admission and Anticipated Discharge Date Admission Date: June 02, 2024 Subjective 88-year-old female with multiple medical comorbidities now postop day 1 from IM nailing of a right inner troches fracture. She is doing pretty well this morning. Denies much in the way of pain. No new complaints. Denies any chest pain or shortness of breath. Not feeling dizzy or lightheaded. Physical Exam Physical Exam: Physical nation was a pleasant elderly female. As she is sitting up in bed looks pretty comfortable eating her breakfast. Examination of right hip and leg reveals the leg to be well aligned. Dressings clean dry and intact. She can dorsiflex and plantarflex her foot appropriately. Results & Data Vital Signs (Past 12 Hours) Vital Signs Temp Pulse Resp BP Pulse Ox O2 Del Method 06/04/24 07:29 37.0 C 96 H 16 118/65 91 Room Air 06/04/24 03:17 37.0 C 93 H 16 119/60 93 Room Air 06/03/24 23:20 36.9 C 94 H 16 103/57 L 92 Room Air 06/03/24 21:28 36.8 C 93 H 16 109/63 98 Room Air 06/03/24 21:13 Room Air Laboratory Results Hemoglobin 6.8. Hematocrit is 21.2. Electrolytes are stable and improving. His creatinine was elevated and improved but still somewhat elevated at 1.65. CK is pending cleared (1) Closed hip fracture Encounter type: initial encounter Laterality: right Qualified Code(s): S72.001A - Fracture of unspecified part of neck of right femur, initial encounter for closed fracture
--- NOTE | 2024-06-04 08:28 | Fluoroscopy Report ---
FL femur RT 2V CLINICAL HISTORY: FX, RT TROCH COMPARISON STUDY: Right femur radiographs June 02, 2024. FLUOROSCOPY TIME: 1 minute and 14 seconds. Ka,r: 17.26 mGy FLUOROSCOPIC IMAGES: 4 FINDINGS: Fluoroscopy was provided during open reduction and internal fixation of the right femoral i ntertrochanteric fracture with trochanteric nail. Fracture alignment has improved. IMPRESSION: Fluoroscopy provided during open reduction and internal fixation of the right femoral in tertrochanteric fracture. ACT 112: Negative or not required by law. Electronically signed by: Ronald Alejo M.D. 06/04/2024 8:26 AM
[2024-06-04] MEDS: oxyCODONE HCL IR 5 MG TAB (IMMEDIATE RELEASE) PO PRN (11:41)
[2024-06-04] MEDS: RIVAROXABAN 10 MG TABLET PO SCH (15:48)
[2024-06-05 07:10] LABS: Hematocrit (blood only) 24.8 % (37.0-47.0); Mean Corpuscular Hemoglobin 28.5 pg (25.0-34.0); Mean Corpuscular Hgb Conc 32.3 g/dL (32.0-36.0); Mean Corpuscular Volume 88.3 fL (80.0-100.0); Mean Platelet Volume 9.5 fL (9.4-12.4); Nucleated RBC # (auto) 0.03 K/uL (0.00-0.12); Nucleated RBC % (auto) 0.3 %; Platelet Count 147 K/uL (130-400); RDW Coefficient of Variation 15.2 % (11.5-14.5); RDW Standard Deviation 49.1 fL (36.4-46.3); Red Blood Count 2.81 M/uL (4.20-5.40); White Blood Count 9.17 K/ul (4.8-10.8)
[2024-06-05 07:30] LABS: BUN Creatinine Ratio 35.5 (10-20); Calcium 7.8 mg/dl (8.6-10.3); Creatinine Clr Calc Pharmacy 27.9 ml/min
[2024-06-05] MEDS: POLYETHYLENE (MIRALAX) 17 GM PACK PO SCH (11:13)
[2024-06-05] MEDS: SENNA 8.6 MG TAB PO SCH (11:13)
--- NOTE | 2024-06-05 16:20 | Hospitalist Progress Note ---
Date of Service June 05, 2024 Assessment & Plan (1) Closed hip fracture: Plan: 88-year-old woman who lives independently sustained a mechanical fall while attempting to open or close her garage door, no loss of consciousness, sustained right hip fracture. Was down on the ground for 24 hours with resultant JAYLAN and mild rhabdomyolysis Acute pathologic right hip fracture due to age related osteoporosis Operation Date: 06/03/24 10:30 Actual Procedures p Right Hip Intramedullary Nail Fixation(Right) of right intertrochanteric hip fracture- Dwayne Linn MD PT/OT rec rehab/SNF Still has beckman DVT ppx - xarelto (2) JAYLAN (acute kidney injury): Plan: Prerenal related to dehydration, improving Cr 2.2-->1.24 baseline unknown HAGMA related to dehydration and JAYLAN resolved Bilateral renal artery stenosis noted on CT scan. Does not affect management. Transfused. Lisinopril and torsemide still held - likely resume tomorrow AM BMP (3) Rhabdomyolysis: Plan: Mild, treated with IV fluids, unlikely related to JAYLAN CK 2100-->2300-->1200-->673 (4) Leukocytosis: Plan: Resolved. hemoconcentration and reactive (5) Thyroid nodule: Plan: - noted indecently on imaging - f/u OP with US (6) Carotid atherosclerosis: Plan: - noted indecently on imaging - f/u OP with US vs CTA (7) Anemia: Plan: Postoperative acute blood loss anemia Hg 6.8 --> 8.0 after transfusion one unit RBC on 06/04. AM CBC Plan Chronic Stable - Paroxysmal Afib- continue xarelto, metoprolol - HTN: resumed amlodipine. lisinopril held for JAYLAN - DM2: Hold home oral medications. Well controlled with hemoglobin a1c 6-7 over the past 5 years. premeal PRN short acting insulin, added glargine Asthma: Continue home inhalers, not in exacerbation VTE Prophylaxis- Xarelto 10 mg resuming this afternoon Admission and Anticipated Discharge Date Admission Date: June 02, 2024 Subjective R hip remains painful, controlled on current beds better than yesterday No shortness of breath or CP Physical Exam 2 Physical Exam: PHYSICAL EXAMINATION Last 24h vital signs reviewed, see documentation in flowsheet General: comfortable appearing, no distress Exam unchanged 06/05 HEENT: Normocephalic, atraumatic, pupils round and equal, sclerae anicteric, no conjunctival injection, moist mucus membranes Lungs: Normal respiratory effort. Clear to auscultation bilaterally. No RRW Heart: Regular rate and rhythm, no murmurs. No JVD Abdomen: Soft, nontender, nondistended. Bowel sounds present. Beckman still in place Extremities: 2+ lower extremity edema. R leg deformity resolved, R hip in dressing, RLE wwp Neuro: Alert and oriented to basic situation, vague historian hard of hearing, face symmetric Psych: Normal affect and behavior Results & Data Results & Data Vital Signs (Past 12 Hours) Vital Signs Temp Pulse Resp BP Pulse Ox O2 Del Method 06/05/24 15:31 98.4 F 85 16 115/62 96 Room Air 06/05/24 07:36 98.1 F 89 16 121/64 95 Room Air Laboratory Results 06/05/24 06:26 06/05/24 06:26 PG Care Time/CCT Total # of Minutes Spent Total Time Spent with Patient: Total time spent is greater than 50% in coordination of care (as documented) at patient's floor/unit and/or counseling patient: Coding Level of Care Code 32780 SUB INP/OBS CARE 2/35MIN Diagnoses Closed hip fracture S72.001A Encounter type: initial encounter Laterality: right JAYLAN (acute kidney injury) N17.9 Rhabdomyolysis M62.82 Leukocytosis D72.829 Thyroid nodule E04.1 Carotid atherosclerosis I65.29 Anemia D64.9 (1) Closed hip fracture Encounter type: initial encounter Laterality: right Qualified Code(s): S 72.001A - Fracture of unspecified part of neck of right femur, initial encounter for closed fracture
[2024-06-05] MEDS ORDERED: POLYETHYLENE (MIRALAX) 17 GM PACK PO SCH (18:00)
[2024-06-05] MEDS: LANTUS PER UNIT CHARGE SQ SCH (20:29)
[2024-06-06] MEDS: bisacodyL 10 MG SUPP PR PRN (16:00)
--- NOTE | 2024-06-06 16:20 | Hospitalist Progress Note ---
Date of Service June 06, 2024 Assessment & Plan (1) Closed hip fracture: Plan: 88-year-old woman who lives independently sustained a mechanical fall while attempting to open or close her garage door, no loss of consciousness, sustained right hip fracture. Was down on the ground for 24 hours with resultant JAYLAN and mild rhabdomyolysis Acute pathologic right hip fracture due to age related osteoporosis Operation Date: 06/03/24 10:30 Actual Procedures p Right Hip Intramedullary Nail Fixation(Right) of right intertrochanteric hip fracture- Dwayne Linn MD PT/OT rec rehab/SNF Still has beckman - tried to dc today but she refused r/t pain with mobility. continue prn oxycodone and scheduled APAP DVT ppx - xarelto (2) JAYLAN (acute kidney injury): Plan: Prerenal related to dehydration, improving Cr 2.2-->1.24 baseline unknown HAGMA related to dehydration and JAYLAN resolved Bilateral renal artery stenosis noted on CT scan. Does not affect management. Transfused. Lisinopril and torsemide still held - likely resume tomorrow ordered AM BMP (3) Rhabdomyolysis: Plan: Mild, treated with IV fluids, unlikely related to JAYLAN CK 2100-->2300-->1200-->673 (4) Leukocytosis: Plan: Resolved. hemoconcentration and reactive (5) Thyroid nodule: Plan: - noted indecently on imaging - f/u OP with US (6) Carotid atherosclerosis: Plan: - noted indecently on imaging - f/u OP with US vs CTA (7) Anemia: Plan: Postoperative acute blood loss anemia Hg 6.8 --> 8.0 after transfusion one unit RBC on 06/04. AM CBC Plan Chronic Stable - Paroxysmal Afib- continue xarelto, metoprolol - HTN: resumed amlodipine. lisinopril held for JAYLAN - DM2: Hold home oral medications. Well controlled with hemoglobin a1c 6-7 over the past 5 years. premeal PRN short acting insulin, added glargine - increase to 10u Asthma: Continue home inhalers, not in exacerbation has some confusion and slow to follow instructions from therapists - may be her baseline though lives alone, or related to pain medications. is very [place]. clarify with family. VTE Prophylaxis- Xarelto 10 mg PT/OT - rehab Admission and Anticipated Discharge Date Admission Date: June 02, 2024 Subjective continues with significant right hip pain with standing, still has beckman no shortness of breath Physical Exam Physical Exam: PHYSICAL EXAMINATION Last 24h vital signs reviewed, see documentation in flowsheet General: comfortable appearing, no distress, seen working with PT standing with walker then sitting in chair HEENT: Normocephalic, atraumatic, pupils round and equal, sclerae anicteric, no conjunctival injection, moist mucus membranes Lungs: Normal respiratory effort. Clear to auscultation bilaterally. No RRW Heart: Regular rate and rhythm, no murmurs. No JVD Abdomen: Soft, nontender, nondistended. Bowel sounds present. Beckman still in place Extremities: 2+ lower extremity edema. R hip dressed. intact DP pulses davie. LE warm Neuro: Alert and oriented to basic situation, mildly confused - follows directions from therapist sluggishly, hard of hearing, face symmetric Psych: Normal affect and behavior Results & Data Results & Data Vital Signs (Past 12 Hours) Vital Signs Temp Pulse Resp BP Pulse Ox O2 Del Method 06/06/24 15:09 98.2 F 77 16 145/69 H 98 Room Air 06/06/24 07:35 98.6 F 87 16 149/65 H 93 Room Air PG Care Time/CCT Total # of Minutes Spent Total Time Spent with Patient: Total time spent is greater than 50% in coordination of care (as documented) at patient's floor/unit and/or counseling patient: Coding Level of Care Code 80479 SUB INP/OBS CARE 2/35MIN Diagnoses Closed hip fracture S72.001A Encounter type: initial encounter Laterality: right JAYLAN (acute kidney injury) N17.9 Rhabdomyolysis M62.82 Leukocytosis D72.829 Thyroid nodule E04.1 Carotid atherosclerosis I65.29 Anemia D64.9 (1) Closed hip fracture Encounter type: initial encounter Laterality: right Qualified Code(s): S72.001A - Fracture of unspecified part of neck of right femur, initial encounter for closed fracture
--- NOTE | 2024-06-06 20:40 | Billing Data ---
Date of Service June 06, 2024 Coding Level of Care Code 47899 INT INP/OBS CARE
[2024-06-06] MEDS: LANTUS PER UNIT CHARGE SQ SCH (20:58)
[2024-06-07 08:05] LABS: Hematocrit (blood only) 24.5 % (37.0-47.0); Hemoglobin 7.9 g/dl (12.0-16.0); Mean Corpuscular Hemoglobin 28.7 pg (25.0-34.0); Mean Corpuscular Hgb Conc 32.2 g/dL (32.0-36.0); Mean Corpuscular Volume 89.1 fL (80.0-100.0); Mean Platelet Volume 9.2 fL (9.4-12.4); Nucleated RBC # (auto) 0.02 K/uL (0.00-0.12); Nucleated RBC % (auto) 0.3 %; Platelet Count 171 K/uL (130-400); RDW Coefficient of Variation 15.1 % (11.5-14.5); RDW Standard Deviation 48.5 fL (36.4-46.3); Red Blood Count 2.75 M/uL (4.20-5.40); White Blood Count 7.89 K/ul (4.8-10.8)
[2024-06-07 08:11] LABS: BUN Creatinine Ratio 27.3 (10-20); Calcium 7.9 mg/dl (8.6-10.3); Creatinine Clr Calc Pharmacy 39.3 ml/min; Potassium 3.9 mmol/L (3.5-5.1)
--- NOTE | 2024-06-07 14:42 | Hospitalist Progress Note ---
Date of Service June 07, 2024 Assessment & Plan (1) Closed hip fracture: Plan: 88-year-old woman who lives independently sustained a mechanical fall while attempting to open or close her garage door, no loss of consciousness, sustained right hip fracture. Was down on the ground for 24 hours with resultant JAYLAN and mild rhabdomyolysis Acute pathologic right hip fracture due to age related osteoporosis Operation Date: 06/03/24 10:30 Actual Procedures p Right Hip Intramedullary Nail Fixation(Right) of right intertrochanteric hip fracture- Dwayne Linn MD PT/OT rec rehab/SNF continue prn oxycodone and scheduled APAP moving bowels. DC beckman - discussed with RN ready for discharge to rehab or SNF DVT ppx - xarelto (2) JAYLAN (acute kidney injury): Plan: Prerenal related to dehydration - resolved Cr 2.2-->0.88 Bilateral renal artery stenosis noted on CT scan. Does not affect management. Transfused. Resume lisinopril and torsemide (3) Rhabdomyolysis: Plan: Traumatic rhabdomyolysis related to fall with subsequent day spent on ground Mild, treated with IV fluids, unlikely related to JAYLAN CK 2100-->2300-->1200-->673 (4) Leukocytosis: Plan: Resolved. hemoconcentration and reactive (5) Thyroid nodule: Plan: - noted indecently on imaging - f/u OP with US (6) Carotid atherosclerosis: Plan: - noted indecently on imaging - f/u OP with US vs CTA (7) Anemia: Plan: Postoperative acute blood loss anemia Hg 6.8 --> 8.0 after transfusion one unit RBC on 06/04. Hg acceptable at 7.9 on 06/07 Plan Chronic Stable - Paroxysmal Afib- continue xarelto, metoprolol - HTN: resumed amlodipine. lisinopril held for JAYLAN - DM2: Hold home oral medications. Well controlled with hemoglobin a1c 6-7 over the past 5 years. premeal PRN short acting insulin, added glargine - increase to 10u Asthma: Continue home inhalers, not in exacerbation has some confusion and slow to follow instructions from therapists - may be her baseline though lives alone, or related to pain medications. is very CHITINA. clarify with family. VTE Prophylaxis- Xarelto 10 mg PT/OT - rehab Admission and Anticipated Discharge Date Admission Date: June 02, 2024 Subjective doing well, R hip pain under better control, having BMs, no dyspnea Physical Exam 2 Physical Exam: PHYSICAL EXAMINATION Last 24h vital signs reviewed, see documentation in flowsheet General: awake and sitting up in bed HEENT: Normocephalic, atraumatic, pupils round and equal, sclerae anicteric, no conjunctival injection, moist mucus membranes Lungs: Normal respiratory effort. Clear to auscultation bilaterally. No RRW Heart: Regular rate and rhythm, no murmurs. No JVD Abdomen: Soft, nontender, nondistended. Bowel sounds present. Beckman still in place Extremities: 2+ lower extremity edema. R hip dressed. intact DP pulses davie. LE warm Neuro: Alert and oriented to time and location but mildly confused, asks "Is my surgery going to be today? Psych: Normal affect and behavior Results & Data Results & Data Vital Signs (Past 12 Hours) Vital Signs Temp Pulse Resp BP Pulse Ox O2 Del Method 06/07/24 08:10 Room Air 06/07/24 07:26 98.8 F 102 H 16 147/75 H 98 Room Air Laboratory Results 06/07/24 07:23 06/07/24 07:23 PG Care Time/CCT Total # of Minutes Spent Total Time Spent with Patient: Total time spent is greater than 50% in coordination of care (as documented) at patient's floor/unit and/or counseling patient: Coding Level of Care Code 13559 SUB INP/OBS CARE 2/35MIN Diagnoses Closed hip fracture S72.001A Encounter type: initial encounter Laterality: right JAYLAN (acute kidney injury) N17.9 Rhabdomyolysis M62.82 Leukocytosis D72.829 Thyroid nodule E04.1 Carotid atherosclerosis I65.29 Anemia D64.9 (1) Closed hip fracture Encounter type: initial encounter Laterality: right Qualified Code(s): S 72.001A - Fracture of unspecified part of neck of right femur, initial encounter for closed fracture
[2024-06-08] MEDS: IRON SUCROSE 200 MG in SODIUM CHLORIDE 0.9% 100 ML IV ONE (10:46)
--- NOTE | 2024-06-08 14:36 | Hospitalist Progress Note ---
Date of Service June 08, 2024 Assessment & Plan (1) Pathological fracture of hip due to age-related osteoporosis: Plan: RIGHT hip POD #5 s/p ORIF with intramedullary nail - Dr Dwayne Linn DVT proph - Xarelto 10mg daily cont PT/OT 25-OH vit D level - 25.1 - continue supplementation pain meds scheduled tylenol cont PT/OT rehab post-discharge at [facility] (2) JAYLAN (acute kidney injury): Plan: Prerenal in etiology Presenting Cr 2.2 improving to <1 with IV fluids & supportive care repeat BMP in am for stability incidental note of bilateral renal artery stenosis on CT scan. lisinopril and torsemide remain on hold can likely resume 1 or both at discharge (3) Rhabdomyolysis: Plan: Traumatic rhabdomyolysis related to fall with subsequent day spent on ground at her home Mild, treated with IV fluids CK 2100-->2300-->1200-->673 repeat CPK in am to ensure normalization (4) Thyroid nodule: Plan: noted incidentally on imaging f/u outpatient with US TSH in 04/2024 was wnl (5) Carotid atherosclerosis: Plan: noted incidentally on imaging could consider carotid duplex vs CTA but this can be done as outpatient (6) Acute blood loss anemia: Plan: 2nd to fracture itself, surgical ORIF, blood draws, etc. Lowest Hb 6.8 --> s/p 1 unit of PRBCs on 06/04/24 most recent Hb 7.9 on 06/07/24 will repeat CBC in am give venofer 200mg IV x 1 today check a B12/folate to be complete (7) Neck pain: Plan: cervical spine CT at time of admission without fracture but considerable DJD noted try lidoderm patches pain meds prn tylenol scheduled Plan - Paroxysmal Afib- continue xarelto, metoprolol - HTN: cont amlodipine. lisinopril on hold still - DM2: Hold home oral medications. Well controlled with hemoglobin a1c 6-7% over the past 5 years. Cont basal-bolus insulin - Asthma: Continue home inhalers, not in exacerbation VTE Prophylaxis- Xarelto 10 mg PT/OT - rehab at SNF post-discharge needed (insurance denied acute rehab at [facility]) SNF likely to have bed tomorrow left message for pt's daughter Araseli Anguiano on her voicemail this evening Admission and Anticipated Discharge Date Admission Date: June 02, 2024 Subjective patient c/o left sided paraspinal cervical neck pain denies any pain in left arm she did not mention any pain in the right leg last BM - 06/07 per nursing flowsheets eating >50% of meals she seemed mildly confused during the visit but it was pleasant confusion Review of Systems Review of Systems: CV - no chest pain pulm - no dyspnea GI - no abd pain or N/V Physical Exam Physical Exam: gen - laying comfortably in bed, NAD neck - tender paraspinal muscles left lower neck; no spinous process pain; no JVD heart - RRR, s1 s2, no murmur lungs - CTA b/l abd - soft NT ND BS+ musculo - right thigh with large amount of swelling and some bruising; right thigh is much larger than left thigh skin - dressings intact proximal lateral hip and distal lateral thigh extremities - edema of right thigh; mild edema right ankle; no edema on left; pulses 2+ b/l feet neuro - strength 5/5 b/l arms - all muscle groups Results & Data Results & Data Vital Signs (Past 12 Hours) Vital Signs Temp Pulse Resp BP Pulse Ox O2 Del Method 06/08/24 08:10 Room Air 06/08/24 07:54 36.9 C 84 16 151/70 H 97 Room Air Laboratory Results Laboratory Results - last 24 hr 06/08/24 06/08/24 06/08/24 07:36 11:23 16:18 POC Glucose 117 H 183 H 124 H PG Care Time/CCT Total # of Minutes Spent Total Time Spent with Patient: Total time spent is greater than 50% in coordination of care (as documented) at patient's floor/unit and/or counseling patient: Coding Level of Care Code 12962 SUB INP/OBS CARE 3/50MIN Diagnoses Pathological fracture of hip due to age-related osteoporosis M80.059A JAYLAN (acute kidney injury) N17.9 Rhabdomyolysis M62.82 Thyroid nodule E04.1 Carotid atherosclerosis I65.29 Acute blood loss anemia D62 Neck pain M54.2
[2024-06-08] MEDS: LIDOCAINE 5% 1 PATCH TD STA (17:03)
--- NOTE | 2024-06-08 18:47 | Orthopedic Progress Note ---
Date of Service June 08, 2024 Assessment & Plan (1) Closed hip fracture: Plan: 88-year-old female now 5 days out from IM nailing of a right intertrochanteric hip fracture. Orthopedically she is doing pretty well. Pains controlled. She is neurologically intact. Plan: 1. DVT prophylaxis. Will continue to use teds, SCDs, and she is back on her Xarelto dose. 2. PT/OT. She can fully weight-bear as tolerated. 3. Pain control doing okay with current pain regimen. 4. Medical management as per the medicine service. 5. Disposition. She is okay for discharge anytime medically stable. I need to see her back 2 to 3 weeks out from surgery date. She should have full weightbearing on this right leg. Routine wound care daily. Any orthopedic questions can direct me at [phone]. Admission and Anticipated Discharge Date Admission Date: June 02, 2024 Subjective 88-year-old female now 5 days out from IM nailing of a right inner troches fracture. She is doing pretty well today. Having some pain but manageable. No new complaints. No chest pain or shortness of breath. Physical Exam Physical Exam: Physical examination is a pleasant elderly female. She is lying in bed looks pretty comfortable. Examination of the right leg reveals leg to be well aligned. She is got dressings in place with some saturation of the more proximal dressings. Thigh is soft and supple. She can dorsiflex and plantarflex her foot appropriately. Results & Data Vital Signs (Past 12 Hours) Vital Signs Temp Pulse Resp BP Pulse Ox O2 Del Method 06/08/24 15:30 37.1 C 92 H 16 160/81 H 96 Room Air 06/08/24 08:10 Room Air 06/08/24 07:54 36.9 C 84 16 151/70 H 97 Room Air
[2024-06-08] MEDS: ONDANSETRON INJ 2 MG/ML 2 ML VIAL IV STA (23:53)
[2024-06-09 07:57] VITALS: RESP 19
[2024-06-09 08:44] LABS: Hematocrit (blood only) 24.4 % (37.0-47.0); Hemoglobin 7.8 g/dl (12.0-16.0); Mean Corpuscular Hemoglobin 29.3 pg (25.0-34.0); Mean Corpuscular Volume 91.7 fL (80.0-100.0); Mean Platelet Volume 8.8 fL (9.4-12.4); Platelet Count 212 K/uL (130-400); RDW Coefficient of Variation 15.9 % (11.5-14.5); RDW Standard Deviation 51.3 fL (36.4-46.3); Red Blood Count 2.66 M/uL (4.20-5.40); White Blood Count 7.33 K/ul (4.8-10.8)
[2024-06-09 08:53] LABS: BUN Creatinine Ratio 20.3 (10-20); Calcium 8.2 mg/dl (8.6-10.3); Creatinine Clr Calc Pharmacy 43.7 ml/min; Potassium 4.1 mmol/L (3.5-5.1)
[2024-06-09 09:14] LABS: Folate (Folic Acid),Ser orPlas > 22.30 ng/ml (>5.38)
[2024-06-09 09:15] LABS: Vitamin B12 590 pg/ml (180-914)
[2024-06-09] MEDS: IRON SUCROSE 300 MG in SODIUM CHLORIDE 0.9% 250 ML IV ONE (09:47)
[2024-06-09 12:06] VITALS: BP 117/71; TEMP 98.5; O2SAT 96
[2024-06-09] MEDS: TORSEMIDE 20 MG TAB PO STA (12:49)
[2024-06-09] MEDS: LIDOCAINE 5% 1 PATCH TD STA (12:49)
--- NOTE | 2024-06-09 13:22 | Discharge Summary ---
Discharge Summary Date of Service June 09, 2024 Principal Dx & Hospital Course #1 = Principal Diagnosis (1) Pathological fracture of hip due to age-related osteoporosis: RIGHT hip POD #5 s/p ORIF with intramedullary nail - Dr Dwayne Linn DVT proph - Xarelto 10mg daily cont PT/OT 25-OH vit D level - 25.1 - continue supplementation pain meds scheduled tylenol cont PT/OT rehab post-discharge at SNF (2) JAYLAN (acute kidney injury): Prerenal in etiology Presenting Cr 2.2 improving to <1 with IV fluids & supportive care repeat BMP in am for stability incidental note of bilateral renal artery stenosis on CT scan. lisinopril and torsemide remain on hold can likely resume 1 or both at discharge (3) Rhabdomyolysis: Traumatic rhabdomyolysis related to fall with subsequent day spent on ground at her home Mild, treated with IV fluids CK 2100-->2300-->1200-->673 repeat CPK in am to ensure normalization (4) Thyroid nodule: noted incidentally on imaging f/u outpatient with US TSH in 04/2024 was wnl (5) Carotid atherosclerosis: noted incidentally on imaging could consider carotid duplex vs CTA but this can be done as outpatient (6) Acute blood loss anemia: 2nd to fracture itself, surgical ORIF, blood draws, etc. Lowest Hb 6.8 --> s/p 1 unit of PRBCs on 06/04/24 most recent Hb 7.9 on 06/07/24 will repeat CBC in am give venofer 200mg IV x 1 today check a B12/folate to be complete (7) Neck pain: cervical spine CT at time of admission without fracture but considerable DJD noted try lidoderm patches pain meds prn tylenol scheduled Plan - Paroxysmal Afib- continue xarelto, metoprolol - HTN: cont amlodipine. lisinopril on hold still - DM2: Hold home oral medications. Well controlled with hemoglobin a1c 6-7% over the past 5 years. Cont basal-bolus insulin - Asthma: Continue home inhalers, not in exacerbation VTE Prophylaxis- Xarelto 10 mg PT/OT - rehab at SNF post-discharge needed (insurance denied acute rehab at [facility]) SNF likely to have bed tomorrow left message for pt's daughter Araseli Anguiano on her voicemail this evening Admission HPI Per Admitting Provider 88 year old female with a past medical history of DM2, HTN, HLD, Paroxysmal A- fib presenting after fall. Daughter, Son and daughter in law are in the room and help provide some of the history. They state that the last time they were in to [facility] with Halina was over 24 hrs ago. They believe that she fell in the garage sometime during the day of 06/01. Son could not reach her by phone today, so they went over to the house to check on her and found her in the basement. She states that she crawled in from the garage after she fell. Was brought to ED via EMS. ED Course Significant for: WBC= 21.49, Hbg= 9.7, Creatine= 2.2 (BL=1). CK= 2126. CXR, CT cervical spine/ head with acute pathology. XR femur with Comminuted intertrochanteric fracture of the right femur with displaced bone fragments, and secondary coxa vara S/p 1L NSS in ED Discharge Exam gen - laying comfortably in bed, NAD neck - tender paraspinal muscles left lower neck; no spinous process pain; no JVD heart - RRR, s1 s2, no murmur lungs - CTA b/l abd - soft NT ND BS+ musculo - right thigh with large amount of swelling and some bruising; right thigh is much larger than left thigh skin - dressings intact proximal lateral hip and distal lateral thigh extremities - edema of right thigh; mild edema right ankle; no edema on left; pulses 2+ b/l feet neuro - strength 5/5 b/l arms - all muscle groups Discharge Plan Discharge Items Patient Disposition: Transfer [facility] Reason For Visit: FEMUR FRACTURE Discharge Diagnosis: 1. right Hip Fracture - s/p operative repair 06/03/24 - Dr Dwayne Linn, [facility] 2. acute blood loss anemia - 1 unit of blood given, 2 runs of IV iron given; discharge hemoglobin 7.8 3. incidentally found thyroid nodules - thyroid u/s recommended as outpatient 4. acute kidney injury - resolved 5. rhabdomyolysis - resolved 6. diabetes 7. cognitive impairment 8. hypertension 9. paroxysmal a.fib 10. venous insufficiency 11. vitamin D insufficiency - level of 25 Activity: Per Instructions section Activity Comment: Weightbear as tolerated on right leg Weightbearing: Full weightbearing Non-emergency contact: Primary Care Provider and Specialist Call non-emergency contact if: you have any medication questions, your symptoms worsen, your pain is not controlled, you have a fever, your wound has increased redness, your wound has increased drainage and your wound pain has increased Follow-up/Referrals: Ariadna Martinez CRNP [Primary Care Provider] - Dwayne Linn MD [Physician] - (Orthopedic follow-up 2-3 weeks from surgery date (06/03/24)) Diet: Carb Consistent or DM2 Addtl Attending Provider Instructions: Mrs Miller was hospitalized for right hip fracture, acute kidney injury, and rhabdomyolysis due to a fall at home. Right hip fracture was repaired by Dr Linn - [facility] - on 06/03/24. Stay was complicated by acute blood loss anemia requiring 1 unit of blood and 2 runs of IV iron (venofer). Discharge hemoglobin level - 7.8. Per orthopedics - 1. Weightbear as tolerated on right leg 2. Dry dressing change to right Hip/Leg Daily 3. f/u with Dr Dwayne Linn 2-3 weeks from the surgical date of 06/03/24 Recommendations from Medicine - 1. fingerstick blood sugar checks before meals & at bedtime 2. repeat CBC and BMP in 3-4 days for stability 3. magnesium level in 3-4 days 4. outpatient thyroid ultrasound (reason - incidentally noted thyroid nodules on imaging) 5. outpatient carotid ultrasound (reason - possible carotid artery disease as seen on CT imaging) 6. repeat 25-OH vitamin D level in 3 months It was our pleasure to care for Mrs Miller! -Dr Cervantes Pending Studies at Discharge: No Stand-Alone Forms: My [facility] Skilled Items Patient informed of condition?: Yes DNR: No Discharge Level of Care: Skilled Communicable Disease: No Discharge Prognosis: Stable Lines: None Urinary Catheter: No Medications and DC Order Prescriptions: New sennosides [Senokot] 8.6 mg Tablet 17.2 mg PO QAM Qty: 60 0RF insulin glargine [Lantus U-100 Insulin] 100 unit/mL Solution 10 unit subcut HS Qty: 10 0RF insulin aspart U-100 [Novolog U-100 Insulin aspart] 100 unit/mL Solution See Rx Instructions .ROUTE .COMPLEX Qty: 10 0RF Rx Instructions: sliding scale insulin, for meal-time use only. for fingerstick blood sugar of 150-200 give 2 units. for fingerstick blood sugar of 201-250 give 3 units. for fingerstick blood sugar of 251-300 give 4 units. for fingerstick blood sugar of 301-350 give 5 units. anything greater than 350 please call medical provider. cholecalciferol (vitamin D3) [Vitamin D3] 50 mcg (2,000 unit) tablet 50 mcg PO DAILY Qty: 30 2RF acetaminophen [Tylenol Extra Strength] 500 mg tablet 500 mg PO TID Qty: 60 0RF hydrocodone-acetaminophen 5-325 mg tablet 1 tab PO Q6H PRN (Reason: pain) Qty: 10 0RF lidocaine [Lidoderm] 5 % adhesive patch,medicated 2 patch topical DAILY Qty: 30 0RF Rx Instructions: apply to posterior neck for 12 hours, remove for 12 hours. Continued albuterol sulfate 90 mcg/actuation HFA aerosol inhaler 2 puff inhalation Q6H PRN (Reason: shortness of breath or wheezing) Qty: 8.5 5RF pravastatin 20 mg tablet 20 mg PO HS Qty: 90 3RF Xarelto 15 mg tablet 15 mg PO DAILY Qty: 90 3RF Rx Instructions: must administer with evening meal (DME) blood sugar diagnostic Strip See Dose Instructions .ROUTE .MEDSUPPLY Qty: 100 5RF Dose Instruction: As directed Rx Instructions: use to test BID and PRN fluticasone propionate 110 mcg/actuation HFA aerosol inhaler 1 puff INHALATION BID metoprolol tartrate 25 mg tablet 25 mg PO BID Rx Instructions: TAKE 1 TABLET BY MOUTH TWICE DAILY Changed torsemide 20 mg tablet 20 mg PO QAM Qty: 30 9RF polyethylene glycol 3350 17 gram/dose powder 17 gm PO BID Qty: 0 0RF Held amlodipine 10 mg tablet 10 mg PO QAM Qty: 90 3RF Hold Instructions: hold Rx Instructions: Take 1 tab daily glimepiride 1 mg tablet 1 mg PO QDB Qty: 90 3RF Hold Instructions: hold Rx Instructions: 1 mg PO daily with breakfast for blood sugar ; administer with breakfast lisinopril [Zestril] 40 mg tablet 40 mg PO DAILY Qty: 90 3RF Hold Instructions: hold metformin 500 mg tablet extended release 24 hr 500 mg PO BID Qty: 180 3RF Hold Instructions: hold Discontinued docusate sodium 100 mg capsule 100 mg PO QAM Discharge Orders: Discharge Order (Routine); Ordered 06/09/24 Ordered By: Edgar Cervantes Admission Data Admit Date/Time: 06/02/24 21:13 Attending Provider: Edgar Cervantes Admit Provider: Arminda Lee Primary Care Provider: Ariadna Martinez Other Providers: [facility]; Elsie,[facility]; Ghulam Thorne; Dwayne Linn Hospital Stay Data Consultations 06/02/24 19:45 Consult Orthopedic Surgery Routine ED Decision to Admit Stat Procedures Performed Operation Date: 06/03/24 10:30 Actual Procedures p Right Hip Intramedullary Nail Fixation(Right) - Dwayne Linn MD Diagnostic Imagining Performed 06/02/24 18:15 CT cervical spine wo con Stat CT head/brain wo con Stat 06/02/24 18:24 CT abd pelvis wo con Stat 06/03/24 FL femur RT 2V Routine Pending Results Patient Have Any Pending Studies at Discharge: No Discharge Instructions Given to Patient (Per Discharging Provider) Mrs Miller was hospitalized for right hip fracture, acute kidney injury, and rhabdomyolysis due to a fall at home. Right hip fracture was repaired by Dr Linn - [facility] - on 06/03/24. Stay was complicated by acute blood loss anemia requiring 1 unit of blood and 2 runs of IV iron (venofer). Discharge hemoglobin level - 7.8. Per orthopedics - 1. Weightbear as tolerated on right leg 2. Dry dressing change to right Hip/Leg Daily 3. f/u with Dr Dwayne Linn 2-3 weeks from the surgical date of 06/03/24 Recommendations from Medicine - 1. fingerstick blood sugar checks before meals & at bedtime 2. repeat CBC and BMP in 3-4 days for stability 3. magnesium level in 3-4 days 4. outpatient thyroid ultrasound (reason - incidentally noted thyroid nodules on imaging) 5. outpatient carotid ultrasound (reason - possible carotid artery disease as seen on CT imaging) 6. repeat 25-OH vitamin D level in 3 months It was our pleasure to care for Mrs Miller! -Dr Cervantes Coding Diagnoses Pathological fracture of hip due to age-related osteoporosis M80.059A JAYLAN (acute kidney injury) N17.9 Rhabdomyolysis M62.82 Thyroid nodule E04.1 Carotid atherosclerosis I65.29 Acute blood loss anemia D62 Neck pain M54.2
[2024-06-09 14:17] VITALS: PULSE 97
== END 2024-06-09 16:16 | DRG 481 ==
LOC: ED 18:09 → SUATTDRO 21:13 → 3W 21:13